=== PATIENT | male | born 1945 | race Caucasian/White ===

== ENCOUNTER → 2016-05-16 | Outpatient (CLI) | payer OTHER ==
[~2016-05-16] VITALS: Ht 177.8 cm; Wt 128.5 kg
[~2016-05-16] MED LIST: AMLO-114 PO; ASPCH81 PO; AXD/150 PO; ERGO1TAB12 PO; EZET10TA44 PO; FURO-85 PO; INSDGI SC; INSUINJ14 SC; METO1TAB69 PO; MULT-839 PO; NTRGSL/4 UT
[2016-05-16 14:57] VITALS: BP 135/78; PULSE 76; Ht 177.8 cm; Wt 128.5 kg
== END | disposition home or self-care (01) ==
LOC: C.NEUR 14:03
PROVIDERS: ATTEND Internal Medicine Pulmonary Disease
DX: G47.30 Sleep apnea, unspecified (principal)

== ENCOUNTER → 2016-06-20 | Outpatient (CLI) | payer OTHER ==
[2016-06-20 16:23] LABS: ESTIMATED AVERAGE GLUCOSE 197 mg/dl; HA1C FLAG Normal (Normal)
== END | disposition home or self-care (01) ==
LOC: C.LAB1850 14:36
PROVIDERS: ATTEND Nurse Practitioner Family
DX: E11.39 Type 2 diabetes mellitus with other diabetic ophthalmic complication (principal)

== ENCOUNTER → 2016-08-26 | Outpatient (CLI) | payer OTHER ==
[~2016-08-26] MED LIST changes: +METO100T44 PO; -METO1TAB69 PO
[2016-08-26 12:18] LABS: HEMATOCRIT 42.7 % (42-52); MEAN CORPUSCULAR HEMOGLOBIN 30.5 pg (25-34); MEAN CORPUSCULAR HGB CONC 34.7 g/dl (32-36); MEAN PLATELET VOLUME 10.4 fL (7.4-10.4); PLATELET COUNT 202 K/uL (130-400); RED BLOOD COUNT 4.85 M/uL (4.7-6.1); WHITE BLOOD COUNT 6.02 K/uL (4.8-10.8)
[2016-08-26 12:27] LABS: URINE APPEARANCE CLEAR (CLEAR); URINE BILIRUBIN NEG (NEG); URINE COLOR YELLOW; URINE EPITHELIAL CELL AUTO 0-5 /lpf (0-5); URINE NITRITE NEG (NEG); URINE SPECIFIC GRAVITY 1.012 (1.000-1.030); UROBILINOGEN NEG (NEG)
[2016-08-26 12:37] LABS: MANUAL MICROSCOPIC REQUIRED? NO; REVIEW REQ? NO
[2016-08-26 12:51] LABS: BLOOD UREA NITROGEN 24 mg/dl (7-18); BUN/CREATININE RATIO 13.1 (10-20); CARBON DIOXIDE 27 mmol/L (21-32); CHLORIDE 109 mmol/L (98-107); GLUCOSE 79 mg/dl (70-99); POTASSIUM 4.1 mmol/L (3.5-5.1); SODIUM 143 mmol/L (136-145)
[2016-08-26 12:52] LABS: PHOSPHORUS 2.1 mg/dl (2.5-4.9)
[2016-08-26 12:57] LABS: CALCIUM 9.7 mg/dl (8.5-10.1)
[2016-08-26 13:04] LABS: URINE PROTIEN/CREAT RATIO 0.1 (0-0.2); URINE TOTAL PROTEIN 6.5 mg/dl (0-11.9)
== END | disposition home or self-care (01) ==
LOC: C.LAB1850 11:17
PROVIDERS: ATTEND Internal Medicine Nephrology
DX: I12.9 Hypertensive chronic kidney disease with stage 1 through stage 4 chronic kidney disease, or unspecified chronic kidney disease (principal); N18.3 Chronic kidney disease, stage 3 (moderate); N25.81 Secondary hyperparathyroidism of renal origin; R60.9 Edema, unspecified; R80.9 Proteinuria, unspecified; E55.9 Vitamin D deficiency, unspecified

== ENCOUNTER → 2016-11-14 | Outpatient (CLI) | payer OTHER ==
[~2016-11-14] VITALS: Ht 177.8 cm; Wt 124.4 kg
[~2016-11-14] MED LIST changes: -METO100T44 PO; +METO1TAB69 PO
[2016-11-14 13:33] VITALS: BP 136/77; PULSE 74; Ht 177.8 cm; Wt 124.4 kg
== END | disposition home or self-care (01) ==
LOC: C.NEUR 13:15
PROVIDERS: ATTEND Physician Assistant
DX: G47.30 Sleep apnea, unspecified (principal); E66.9 Obesity, unspecified

== ENCOUNTER → 2016-12-22 | Outpatient (CLI) | payer OTHER ==
[2016-12-22 12:34] LABS: ESTIMATED AVERAGE GLUCOSE 197 mg/dl; HA1C FLAG Normal (Normal)
== END | disposition home or self-care (01) ==
LOC: C.LABBFT 11:07
PROVIDERS: ATTEND Internal Medicine
DX: E11.9 Type 2 diabetes mellitus without complications (principal)

== ENCOUNTER → 2017-02-10 | Outpatient (CLI) | payer OTHER ==
[~2017-02-10] MED LIST changes: +METO100T44 PO; -METO1TAB69 PO
--- NOTE | 2017-02-10 11:37 | DIAGNOSTIC IMAGING REPORT ---
CHEST 2 VIEWS ROUTINE CLINICAL HISTORY: R06.02 Shortness of breath on [id number] dyspnea COMPARISON STUDY: 12/12/2012 FINDINGS: Mild cardiomegaly. Prior median sternotomy. Diaphragms smooth. Lungs are clear. IMPRESSION: Mild cardiomegaly. Median sternotomy. No acute process. The above report was generated using voice recognition software. It may contain grammatical, syntax or spelling errors. Electronically signed by: Jb Otto M.D. 02/10/2017 11:35 AM Dictated Date/Time: 02/10/2017 11:34 AM
== END | disposition home or self-care (01) ==
LOC: C.RAD1850 11:17
PROVIDERS: ATTEND Internal Medicine
DX: R06.02 Shortness of breath (principal)

== ENCOUNTER → 2017-03-08 | Outpatient (CLI) | payer OTHER ==
[2017-03-08 12:02] LABS: HEMATOCRIT 43.3 % (42-52); MEAN CELL VOLUME 89.3 fL (80-100); MEAN CORPUSCULAR HEMOGLOBIN 30.1 pg (25-34); MEAN CORPUSCULAR HGB CONC 33.7 g/dl (32-36); MEAN PLATELET VOLUME 11.1 fL (7.4-10.4); PLATELET COUNT 181 K/uL (130-400); RED BLOOD COUNT 4.85 M/uL (4.7-6.1); WHITE BLOOD COUNT 5.43 K/uL (4.8-10.8)
[2017-03-08 12:08] LABS: URINE APPEARANCE CLEAR (CLEAR); URINE BILIRUBIN NEG (NEG); URINE COLOR YELLOW; URINE EPITHELIAL CELL AUTO 0-5 /lpf (0-5); URINE NITRITE NEG (NEG); URINE SPECIFIC GRAVITY 1.015 (1.000-1.030); UROBILINOGEN NEG (NEG)
[2017-03-08 12:10] LABS: MANUAL MICROSCOPIC REQUIRED? NO; REVIEW REQ? NO
[2017-03-08 12:27] LABS: ALT/SGPT 30 U/L (12-78); AST/SGOT 14 U/L (15-37); BLOOD UREA NITROGEN 20 mg/dl (7-18); BUN/CREATININE RATIO 11.5 (10-20); CALCIUM 8.9 mg/dl (8.5-10.1); CARBON DIOXIDE 27 mmol/L (21-32); CHLORIDE 106 mmol/L (98-107); CREATININE 1.74 mg/dl (0.60-1.40); GLUCOSE 222 mg/dl (70-99); POTASSIUM 4.1 mmol/L (3.5-5.1); SODIUM 137 mmol/L (136-145)
[2017-03-08 12:28] LABS: URINE PROTIEN/CREAT RATIO 0.2 (0-0.2); URINE TOTAL PROTEIN 16.8 mg/dl (0-11.9)
[2017-03-08 12:30] LABS: CHOLESTEROL 91 mg/dl (0-200); CHOLESTEROL/HDL RATIO 2.8; HDL CHOLESTEROL 33 mg/dl; LDL CHOLESTEROL CALCULATED 30 mg/dl; PHOSPHORUS 2.1 mg/dl (2.5-4.9); TRIGLYCERIDES 138 mg/dl (0-150); VERY LOW DENSITY LIPOPROT CALC 28 mg/dl
== END | disposition home or self-care (01) ==
LOC: C.LABPBG 08:56
PROVIDERS: ATTEND Internal Medicine Nephrology
DX: I12.9 Hypertensive chronic kidney disease with stage 1 through stage 4 chronic kidney disease, or unspecified chronic kidney disease (principal); N18.3 Chronic kidney disease, stage 3 (moderate); N25.81 Secondary hyperparathyroidism of renal origin; R60.9 Edema, unspecified; R80.9 Proteinuria, unspecified; E55.9 Vitamin D deficiency, unspecified; I25.10 Atherosclerotic heart disease of native coronary artery without angina pectoris

== ENCOUNTER → 2017-05-17 | Outpatient (CLI) | payer OTHER ==
[2017-05-17 12:39] LABS: HEMOGLOBIN A1C 8.5 % (4.5-5.6)
== END | disposition home or self-care (01) ==
LOC: C.LABBFT 10:45
PROVIDERS: ATTEND Nurse Practitioner Family
DX: E11.29 Type 2 diabetes mellitus with other diabetic kidney complication (principal); E11.65 Type 2 diabetes mellitus with hyperglycemia

== ENCOUNTER → 2017-05-18 | Outpatient (CLI) | payer OTHER ==
[~2017-05-18] VITALS: Ht 175.3 cm; Wt 129.0 kg
[2017-05-18 13:14] VITALS: BP 135/75; PULSE 88; Ht 175.3 cm; Wt 129.0 kg
== END | disposition home or self-care (01) ==
LOC: C.NEUR 12:44
PROVIDERS: ATTEND Physician Assistant
DX: G47.30 Sleep apnea, unspecified (principal); Z88.8 Allergy status to other drugs, medicaments and biological substances

== ENCOUNTER 2019-09-26 08:44 | Observation (INO) ==
--- NOTE | 2019-09-05 08:33 | PAT Medication Instructions ---
Medication Instructions Date of Service September 05, 2019 Home Medications Medication Instructions Recorded bumetanide 1 mg tablet 1 mg PO BID #180 tab 11/02/18 ezetimibe 10 mg-simvastatin 80 mg 1 tab PO HS #90 tab 11/02/18 tablet lisinopril 20 mg tablet 30 mg PO QAM #135 tab 11/02/18 metoprolol succinate 100 mg 100 mg PO BID #180 tab 11/02/18 tablet,extended release 24 hr insulin glargine 100 unit/mL (3 40 unit SUBCUT HS 90 Days #36 ml 05/09/19 mL) subcutaneous pen pen needle, diabetic 32 gauge x #400 ea 05/09/19" peg 3350-electrolytes 236 240 ml PO .COMPLEX #4000 ml 05/13/19 gram-22.74 gram-6.74 gram-5.86 gram solution insulin aspart U-100 100 unit/mL See Rx Instructions SQ DAILY 90 08/06/19 (3 mL) subcutaneous pen Days #45 ml ergocalciferol (vitamin D2) 1,250 50,000 unit PO MONTHLY #3 cap 09/04/19 mcg (50,000 unit) capsule aspirin [Aspirin Low Dose] 81 mg PO QAM nitroglycerin 1 dose SUBLINGUAL UD PRN meclizine 25 mg tablet 25 mg PO Q6H PRN sildenafil 20 mg tablet 20 mg PO DAILY PRN vitamin A-vitamin C-vit E-min 1 tab PO QAM bumetanide 1 mg tablet 1 mg PO BID ezetimibe 10 mg-simvastatin 80 mg tablet 1 tab PO HS lisinopril 20 mg tablet 30 mg PO QAM metoprolol succinate 100 mg tablet,extended release 24 hr 100 mg PO BID insulin glargine 100 unit/mL (3 mL) subcutaneous pen 40 unit SUBCUT HS insulin aspart U-100 100 unit/mL (3 mL) subcutaneous pen See Rx Instructions SQ DAILY calcium carbonate [Tums] 200 mg PO BID PRN ergocalciferol (vitamin D2) 1,250 mcg (50,000 unit) capsule 50,000 unit PO MONTHLY ASK your surgeon for instructions nitroglycerin 1 dose SUBLINGUAL UD PRN (if needed) STOP taking 2 weeks before surgery (or as soon as possible if surgery is within 2 weeks) vitamin A-vitamin C-vit E-min 1 tab PO QAM DO NOT take the morning of surgery sildenafil 20 mg tablet 20 mg PO DAILY PRN bumetanide 1 mg tablet 1 mg PO BID lisinopril 20 mg tablet 30 mg PO QAM insulin aspart U-100 100 unit/mL (3 mL) subcutaneous pen See Rx Instructions SQ DAILY calcium carbonate [Tums] 200 mg PO BID PRN ergocalciferol (vitamin D2) 1,250 mcg (50,000 unit) capsule 50,000 unit PO MONTHLY Take morning of surgery With a small sip of water, OTHERWISE NOTHING TO EAT OR DRINK AFTER MIDNIGHT: aspirin [Aspirin Low Dose] 81 mg PO QAM meclizine 25 mg tablet 25 mg PO Q6H PRN (if needed) metoprolol succinate 100 mg tablet,extended release 24 hr 100 mg PO BID Take evening before surgery meclizine 25 mg tablet 25 mg PO Q6H PRN (if needed) sildenafil 20 mg tablet 20 mg PO DAILY PRN (if needed) bumetanide 1 mg tablet 1 mg PO BID lisinopril 20 mg tablet 30 mg PO QAM insulin aspart U-100 100 unit/mL (3 mL) subcutaneous pen See Rx Instructions SQ DAILY calcium carbonate [Tums] 200 mg PO BID PRN (if needed) insulin glargine 100 unit/mL (3 mL) subcutaneous pen 40 unit SUBCUT HS Other Notes If you have any questions please call us at [phone] or [phone] or [phone] or [phone]
--- NOTE | 2019-09-05 12:23 | Anesthesiology Consultation ---
Date of Service September 05, 2019 Assessment & Plan (1) Encounter for pre-operative examination: - Patient has cardiology office visit 09/12/19. Awaiting office visit note ([facility] cardiology). Per PAT assessment on 09/04: Travel screen- Lives in [facility]. Only travel to [facility]. Wears mask in public. No known COVID-19 positive contacts. No history of COVID-19 testing. No current COVID-19 related symptoms. - Check BSG AM DOS Chart Review Chart Review: Patient seen in Pre Admission Testing Teaching & Discussion Pre-Anesthesia Teaching/Discussion Notes: Instructed NPO after midnight before surgery,except medications with 15 cc of water. Medication instructions provided according to the [facility] guidelines. History Surgery Operation Date: 09/26/19 11:10 Proposed Procedures p Right Total Knee Replacement - Forest Bales MD Correct surgery side is LEFT side, corrected OR booking sheet received Height/Weight Height: 5 ft 10 in Weight: 124.738 kg Allergies Allergy/AdvReac Type Severity Reaction Status Date / Time atorvastatin Allergy Intermediate severe Verified 09/05/19 10:27 muscle aches Medications Home Medications Medication Instructions Recorded Confirmed Last Taken aspirin [Aspirin Low Dose] 81 mg PO QAM 04/26/18 09/05/19 05/09/18 nitroglycerin 1 dose SUBLINGUAL UD PRN 04/26/18 09/05/19 Unknown meclizine 25 mg tablet 25 mg PO Q6H PRN #30 tab 10/31/18 09/05/19 Unknown vitamin A-vitamin C-vit E-min 1 tab PO QAM 10/31/18 09/05/19 Unknown bumetanide 1 mg tablet 1 mg PO BID #180 tab 11/02/18 09/05/19 Unknown ezetimibe 10 mg-simvastatin 80 mg 1 tab PO HS #90 tab 11/02/18 09/05/19 Unknown tablet lisinopril 20 mg tablet 30 mg PO QAM #135 tab 11/02/18 09/05/19 Unknown metoprolol succinate 100 mg 100 mg PO BID #180 tab 11/02/18 09/05/19 Unknown tablet,extended release 24 hr insulin glargine 100 unit/mL (3 40 unit SUBCUT HS 90 Days #36 ml 05/09/19 09/05/19 Unknown mL) subcutaneous pen pen needle, diabetic 32 gauge x #400 ea 05/09/19 09/05/19 Unknown 532" peg 3350-electrolytes 236 240 ml PO .COMPLEX #4000 ml 05/13/19 09/05/19 Unknown gram-22.74 gram-6.74 gram-5.86 gram solution insulin aspart U-100 100 unit/mL See Rx Instructions SQ DAILY 90 08/06/19 09/05/19 Unknown (3 mL) subcutaneous pen Days #45 ml calcium carbonate [Tums] 200 mg PO BID PRN 09/04/19 09/05/19 Unknown ergocalciferol (vitamin D2) 1,250 50,000 unit PO MONTHLY #3 cap 09/04/19 09/05/19 Unknown mcg (50,000 unit) capsule sildenafil 20 mg PO DAILY PRN 09/05/19 09/05/19 Unknown Past Medical History Medical History (Updated 09/05/19 @ 19:37 by Anahi Alfaro) CAD (coronary artery disease) CABG x2 (2004) Chronic kidney disease, stage III (moderate) baseline creatinine 1.6-1.7 per chart review Diabetes mellitus, type 2 IDDM GERD (gastroesophageal reflux disease) Hyperlipidemia Hypertension Hypertension Meniere's disease Secondary hyperparathyroidism Sensorineural hearing loss (SNHL) of left ear with restricted hearing of right ear Sleep apnea CPAP Urinary tract infection Exercise / Class Metabolic Activity III < 4 Walking/Shop/Light housework Past Family History Family History Mother Family history of diabetes mellitus Myocardial infarction Diabetes Cardiac disorder Hypertension Heart disease Father Myocardial infarction Cardiac disorder Alcohol abuse Brother Myocardial infarction Leukemia Alcohol abuse Other No family history of adverse response to anesthesia Pure hypercholesterolemia Past Surgical History Surgical History (Updated 09/05/19 @ 19:37 by Anahi Alfaro) History of arthroscopy LEFT KNEE History of cardiac cath 2005 @ [facility], no stents History of cataract surgery BILATERAL History of colonoscopy with polypectomy History of coronary artery bypass graft X2 (2004) History of endoscopic sinus surgery History of esophagogastroduodenoscopy (EGD) History of tonsillectomy Past Anesthesia History No Hx of Anesthesia Complications and No Family Hx of Anesthesia Complications History of PONV No Hx of PONV and Hx of Motion Sickness (remote hx) Social History Smoking Status: Former smoker tobacco type: pipe and cigars Do You Dip or Chew Tobacco: No Smoking End Date: Quit Hx Alcohol Use: Yes Alcohol type: hard liquor alcohol intake frequency: holidays/special occasions only Hx Substance Use: No substance use type: does not use Review of Systems Patient denies chest pain, shortness of breath, fever, chills, cough, wheezing, palpitations. Physical Exam Vital Signs VITALS BP 137/77 P 64 TEMP 98.2 SP02 97%RA RESP 18 PHYSICAL Full neck and c-spine range of motion. Full TMJ range of motion. TMD 3 finger breaths Mallampati Score 3 Dentition: partial on lower Lungs: clear throughout to auscultation Cardiac: regular rate and rhythm, no murmurs noted Spine: normal Carotid arteries: negative bruit Extremities: no edema Testing Laboratory Results PT 11.0 Seconds (9.0-12.0) 09/05/19 13:04 INR 1.0 (0.9-1.1) 09/05/19 13:04 APTT 26.4 Seconds (21.0-31.0) 09/05/19 13:04 Hemoglobin A1c 7.8 % (4.5-5.6) H 09/05/19 13:04 Blood Type A Negative 09/05/19 13:04 Antibody Screen NEGATIVE 09/05/19 13:04 09/03/19 WBC 6.38 H/H 14.4/42.4 PLATELETS 192 SODIUM 143 POTASSIUM 4.2 CHLORIDE 112 CO2 26 BUN 21 CREATININE 1.62 GLUCOSE 80 Electrocardiogram Date: 09/05/19 NSR at 66bpm. NS TWA. Chest X-Ray Date: 09/05/19 The patient is status post midline sternotomy. The heart is enlarged noting atherosclerotic calcification of the thoracic aorta. The pulmonary vasculature is noncongested. Mild scarring/atelectasis is noted at the lung bases. The lungs and pleural spaces are otherwise clear. There is no pneumothorax. The skeletal structures are osteopenic. The bony thorax appears intact. IMPRESSION: Cardiomegaly with no active disease in the chest.
--- NOTE | 2019-09-05 13:28 | XRay Report ---
TWO VIEW CHEST CLINICAL HISTORY: Preoperative examination. FINDINGS: PA and lateral chest radiographs are compared to study dated 02/10/2017. The patient is sta tus post midline sternotomy. The heart is enlarged noting atherosclerotic calcification of the thorac ic aorta. The pulmonary vasculature is noncongested. Mild scarring/atelectasis is noted at the lung b ases. The lungs and pleural spaces are otherwise clear. There is no pneumothorax. The skeletal struc tures are osteopenic. The bony thorax appears intact. IMPRESSION: Cardiomegaly with no active disease in the chest. ACT 112: Negative or not required by law. Electronically signed by: Cy Gamino M.D. 09/05/2019 1:27 PM
[2019-09-05 15:09] LABS: Partial Thromboplastin Ratio 0.9; Partial Thromboplastin Time 26.4 Seconds (21.0-31.0)
[2019-09-05 15:13] LABS: Estimated Average Glucose 177 mg/dl; Hemoglobin A1C 7.8 % (4.5-5.6)
--- NOTE | 2019-09-05 16:57 | Electrocardiogram Report ---
Test Reason : Blood Pressure : / mmHG Vent. Rate : 066 BPM Atrial Rate : 066 BPM P-R Int : 204 ms QRS Dur : 088 ms QT Int : 410 ms P-R-T Axes : 071 005 103 degrees QTc Int : 429 ms Normal sinus rhythm Nonspecific T wave abnormality Abnormal ECG When compared with ECG of 07-MAY-2015 11:19, No significant change was found Confirmed by Surjit Copeland ([id number]) on 09/05/2019 4:56:42 PM Referred By: Forest Bales Confirmed By:Surjit Copeland
[~2019-09-26 08:44] MED LIST changes: +ACETAMINOPHEN 500 MG TAB PO SCH; -AMLO-114 PO; -ASPCH81 PO; -AXD/150 PO; +BUPIVACAINE 0.5 % 5 MG/1 ML PF 10ML VIAL ONE; +BUPIVACAINE LIPOSOME/PF 266 MG, BUPIVACAINE/EPINEPHRINE 50 ML, SODIUM CHLORIDE 0.9% 30 ... INFIL SCH; +CEFAZOLIN 3000MG 72.5 ML IV SCH; -ERGO1TAB12 PO; -EZET10TA44 PO; +FAMOTIDINE 20 MG TAB PO SCH; -FURO-85 PO; +GABAPENTIN 300 MG CAP PO SCH; -INSDGI SC; -INSUINJ14 SC; +LR 500ML BOLUS, THEN 15ML/HR IV SCH; +LR 60ML/HR IV SCH; -METO100T44 PO; +METOCLOPRAMIDE HCL 10 MG TABLET PO SCH; -MULT-839 PO; -NTRGSL/4 UT; +ROPIVACAINE 0.5% 5 MG/ML 30 ML VIAL ONE; +TRANEXAMIC ACID 1,000 MG **IV Intra-op IV SCH
--- NOTE | 2019-09-26 08:55 | History & Physical Bridge Note ---
Date of Service September 26, 2019 History & Physical Bridge Note I have examined the patient, reviewed the History & Physical and in the interval since the performance of the History & Physical I have noted the following changes of clinical significance: no changes noted
[2019-09-26] MEDS ORDERED: MIDAZOLAM HCL 1 MG/ML 2ML VIAL ONE ×2 (09:16→11:18)
[2019-09-26] MEDS ORDERED: PROPOFOL IV EMULSION 10 MG/ML 20 ML VIAL IV ONE ×4 (09:20→11:36)
[2019-09-26] MEDS ORDERED: ONDANSETRON INJ 2 MG/ML 2 ML VIAL IV PRN ×2 (10:19→14:12)
[2019-09-26] MEDS ORDERED: KETOROLAC 30 MG/ML VIAL IV PRN (10:19)
[2019-09-26] MEDS ORDERED: ATROPINE SULFATE 0.1 MG/ML 10ML SYR IV PRN (10:19)
[2019-09-26] MEDS ORDERED: HYDROmorphone INJ 1 MG/ML SYRINGE IV PRN (10:19)
[2019-09-26] MEDS ORDERED: ePHEDrine sulfate 50 MG/ML AMP IV PRN (10:19)
[2019-09-26] MEDS ORDERED: BACITRACIN INJ 50,000 UNIT VIAL ONE (10:40)
[2019-09-26] MEDS ORDERED: BUPIVACAINE 0.25% 30 ML VIAL ONE (10:40)
[2019-09-26] MEDS ORDERED: BUPIVACAINE LIPOSOME 1.3% 266 MG/20 ML VIAL ONE (10:40)
[2019-09-26] MEDS ORDERED: SODIUM CHLORIDE 0.9% PF 50 ML VIAL ONE (10:40)
[2019-09-26] MEDS ORDERED: EPINEPHrine INJ 1 MG/ML AMP ONE (10:41)
--- NOTE | 2019-09-26 12:40 | Post Operative Brief Note ---
PG Immediate Post Op with CF Date of Surgery September 26, 2019 Pre & Post Diagnosis Operation Date: 09/26/19 10:55 Pre-Op Diagnosis: Left Knee Advanced Degenerative Joint Disease Post-Op Diagnosis: Left Knee Advanced Degenerative Joint Disease I identified the patient and participated in the time-out.: Yes Procedure Operation Date: 09/26/19 10:55 Actual Procedures p Left Total Knee Arthroplasty(Left) - Forest Bales MD Surgeon Foerst Bales MD Bilingual Sales Assistant Wai, PAC Estimated Blood Loss 50 Findings Consistent with Post-Op Diagnosis Fluids 500 cc Specimens Specimen Description: A. Left Knee Bone and Tissue Drains Healy Catheter Disposition Disposition: Recovery Room
--- NOTE | 2019-09-26 12:57 | XRay Report ---
LEFT KNEE 2 VIEWS History: Left total knee arthroplasty. Degenerative arthritis. Postop. FINDINGS: The patient is status post a left total knee arthroplasty. The hardware is intact. No fract ure or dislocation. Skin shivani are in place. IMPRESSION: Left total knee arthroplasty. No evidence for hardware complication. ACT 112: Negative or not required by law. Electronically signed by: Erik Rees M.D. 09/26/2019 12:56 PM
--- NOTE | 2019-09-26 13:02 | Operative Report ---
Post Operative Report Pre & Post Diagnosis Operation Date: 09/26/19 10:55 Pre-Op Diagnosis: Left Knee Advanced Degenerative Joint Disease Post-Op Diagnosis: Left Knee Advanced Degenerative Joint Disease I identified the patient and participated in the time-out.: Yes Procedure Operation Date: 09/26/19 10:55 Actual Procedures p Left Total Knee Arthroplasty(Left) - Forest Bales MD Surgeon Forest Bales MD Building Components Designer Wai, PAC Estimated Blood Loss 50 Findings Consistent with Post-Op Diagnosis Operative findings revealed advanced left knee DJD with extensive grade 4 [id number] disease of the medial femoral condyle medial tibial plateau. He had large osteophytes posteriorly on both the medial and lateral sides with the posterior calcifications. Large knee joint effusion. He had fixed varus deformity to his knee. Fluids 500 cc. Specimens Left knee sent for pathology. Drains None. Anesthesia Type Spinal MAC Complications none Disposition Accompanied Patient To Recovery: No Disposition: Recovery Room Indications Patient is a 74-year-old gentleman is had a long history of bilateral knee pain discomfort left side greater than right. Is been through extensive conservative treatments became less successful with time. X-ray showed advanced left knee medial compartment DJD. Significant flexion contracture as well as fixed varus deformity to his knee. He elected proceed with total knee arthroplasty. Description of Procedure Operative implants consist of: 1. Biomet Vanguard size 70 left posterior by femoral component. 2. Biomet size 79 tibial tray. 3. 10 mm posterior bite polyethylene insert. 4. 31 x 8 all poly-patella. Patient was taken to the operating room identified and placed on the operating table supine position protectors were properly padded. IV antibiotics arrived by anesthesia team. A spinal anesthetic and abductor canal block had provided in the holding area. Healy catheter was placed in sterile fashion. Left factor was then placed in the left lower extremities and prepped draped in usual sterile fashion. The left leg was elevated exsanguinated with use of an Esmarch and turns placed at 300 mmHg. An anterior approach to the left knee was then performed the longitudinal incision centered over the patella. Sharp dissection got through subcutaneous this down to the extensor mechanism. A medial parapatellar arthrotomy incision was made. Some subperiosteal dissection was carried out medially. The fat pad was dissected from any patella tendon. Lateral patellofemoral ligament was released. Patella was subluxated laterally and the knee was flexed. The osteophytes were taken off distal femur. The ACL and PCL were then released from distal femur the tibia subluxated anteriorly. The external tibial alignment jig was then placed in the interface the tibia and ad justed 14 mm medially. Proximal tibial cut was made essentially flush with the most efficient aspect of the posterior medial tibial plateau. Some osteophytes were taken off medial and posterior medially. Tibia sized to a size 79. Attention drawn the femur. The distal femur 7 the sharp drill bit intramedullary canal was suctioned. A left 6 degree valgus cutting guide was placed. Distal femoral cutting block was pinned in place. Distal femoral cut was made to take an additional 3 mm of bone off distal femur. The femur was then sized to a size 70. We did downsize a slightly. The AP cutting block was pinned parallel to the epicondylar axis which was 4 degrees of external rotation. The anterior cut, anterior chamfer, posterior cut, posterior chamfer cuts were made. Box cutting guide was placed in just slight lateral box cut was made. The knee was flexed. The remnants of the medial and lateral menisci were excised. The osteophytes and calcification were excised from the posterior aspect of the femur. Trial femoral component was then placed. The tibial tray was pinned in maximum external rotation the drill and stem punch were used to create defect in proximal tip for the tibial tray. Knee was then trialed and the 10 mm insert fit most appropriately. Attention drawn the patella. The patella was cleaned of all soft tissues. Patella thickness measured 22 mm in thickness was cut down to 13. Size a size 31 patella. Locals were drilled for 31 patella. Lateral osteophyte is moved. Patella button was placed. Knee was taken through range of motion patella tracked nicely with no thumbs test. Attention drawn to place the permanent components. All trial components were removed. A bone plug was placed in the disc femur limit blood loss. A double batch Palacos G cement was mixed. Biomet Vanguard size 70 left posterior by femoral component, size 79 tibial tray, 10 mm posterior box polyethylene insert, and a 31 x 8 all poly-patella were then cemented in place. Knee was brought under full extension total cement hardened. Final cement check was then performed. Pericapsular tissues were injected with total 100 cc of combination of 20 cc of Exparel, 30 cc of normal saline, 50 cc of quarter percent Marcaine with epinephrine. Patient did receive 1 g tranexamic acid. The tourniquet was then let down for final tourniquet time 56 minutes. Hemostasis assured use electrocautery. The wounds once again irrigated. The extensor mechanism then closed with combination 1 PDS suture #1 Vicryl suture in a [id number] fashion. Extensor mechanism checked found to be intact the subcutaneous tissue was then closed with 2 Dexon suture in a buried interrupted fashion. Skin was closed skin shivani. Leg was then cleaned dried a sterile dressing composed Xeroform, 4 x 4's, sterile cast padding, Phill bandage were applied. Patient then transferred to the recovery room in stable condition. Patient tolerated procedure well and there were no complications. I attest to the content of the Intraoperative Record and any orders documented therein. Any exceptions are noted below.
[2019-09-26] MEDS ORDERED: GLUCOSE 10 TABS/TUBE PO PRN (14:12)
[2019-09-26] MEDS ORDERED: GLUCOSE 40% GEL 15 GM TUBE PO PRN (14:12)
[2019-09-26] MEDS ORDERED: NALOXONE HCL 0.4 MG/1 ML VIAL/CARP IV PRN (14:12)
[2019-09-26] MEDS ORDERED: CALCIUM CARBONATE 500 MG CHEWABLE TAB PO PRN (14:12)
[2019-09-26] MEDS ORDERED: DEXTROSE 50% 50 ML SYRINGE IV PRN (14:12)
[2019-09-26] MEDS ORDERED: NO NSAIDS SCH (14:12)
[2019-09-26] MEDS ORDERED: CARBOHYDRATES FOR HYPOGLYCEMIA PO PRN (14:12)
[2019-09-26] MEDS ORDERED: ALUMINUM/MAGNESIUM SUSP 30 ML UDC PO PRN (14:12)
[2019-09-26] MEDS ORDERED: bisacodyL 10 MG SUPP PR PRN (14:12)
[2019-09-26] MEDS ORDERED: MAGNESIUM HYDROXIDE SUSP 30 ML UDC PO PRN (14:12)
[2019-09-26] MEDS ORDERED: HYDROmorphone INJ 0.5 MG/0.5 ML SYR IV PRN (14:12)
[2019-09-26] MEDS ORDERED: GLUCAGON FOR INJ 1 MG VIAL SQ PRN (14:12)
[2019-09-26] MEDS ORDERED: NON-FORMULARY MEDICATION (Sildenafil 20 MG) PO PRN (14:12)
[2019-09-26] MEDS ORDERED: NITROGLYCERIN SL 0.4 MG/TAB TAB SL PRN (14:12)
[2019-09-26] MEDS ORDERED: TAMSULOSIN HCL 0.4 MG CAP PO PRN (14:12)
[2019-09-26] MEDS ORDERED: METOCLOPRAMIDE HCL INJ 5 MG/ML 2 ML VIAL IV PRN (14:12)
[2019-09-26] MEDS ORDERED: PHARMACY GLYCEMIC MGMT CONSULT PRN (14:30)
--- NOTE | 2019-09-26 14:58 | Pharmacy Report ---
Glycemic Control Consultation - Date of Service September 26, 2019 - Scope Scope: Glycemic Pharmacist consulted for glycemic control and to write orders per [facility] inpatient glycemic control protocol. - Objective Weight: 121 kg Accuchecks BSG (last 24hrs): 09/26/19 09/26/19 09:15 12:50 POC Glucose 170 H 144 H HbA1c: Hemoglobin A1c 7.8 % (4.5-5.6) H 09/05/19 13:04 - Recent Pertinent Medications Outpatient Anti-diabetic Regimen: * Lantus 40 units SQ HS * Novolog 14 units SQ breakfast, 16 units SQ Lunch, 14 units SQ dinner * A1c = 7.8% from 09/05/19 * Down from 8.7% on 04/15/19 Risk Factors for Insulin Resistance: * Recent Surgery: POD #0 s/p L TKA * Diet: T2DM - Assessment & Plan Assessment & Plan: ASSESSMENT: * 74 yo M who is POD #0 s/p L TKA. PHMx is significant for CAD, CKD-III, HLD, HTN. Pharmacy is consulted for glycemic management. * A1c has come down nicely over the past few months (8.7% --> 7.8%). Patient did take his evening dose of Lantus 40 units last evening. Fasting this AM (pre- op) was 170 mg/dL. Could not see where patient received any steroids perioperatively. He is ordered a T2DM diet. * Post-op BSG was 144 mg/dL. Will give Lantus at a 25% reduction from home dose this evening to account for poor PO intake compared to home. Will start with Novolog parameters based on weight and stress of 2 to try to mimic home dosing. PLAN FOR INPATIENT GLYCEMIC CONTROL: * Basal insulin * Lantus 30 units SQ HS * Bolus insulin * NovoLog per scale ACHS or Q6hrs while NPO * Goal Range: Low 110 mg/dL - High 140 mg/dL * Correction Factor: 20 mg/dL/unit * Nutritional / Prandial insulin per carb ratio of 1 unit per 6 grams CHO consumed * Please note that the plan above was derived based on current level of insulin resistance and hospital stress. These recommendations are appropriate for inpatient admission only. Plan of care upon discharge will need to be reassessed to avoid potential outpatient hypo/hyperglycemia. Thank you.
[2019-09-26] MEDS ORDERED: MECLIZINE HCL 25 MG TAB PO PRN (15:00)
[2019-09-26] MEDS: SODIUM CHLORIDE 0.9% 1000ML 1,000 ML IV SCH ×2 (16:00→22:05)
[2019-09-26] MEDS: METOPROLOL SUCC 50MG EXT REL TAB PO SCH ×2 (16:02→21:04)
[2019-09-26] MEDS: ACETAMINOPHEN 500 MG TAB PO SCH ×2 (16:03→21:03)
[2019-09-26] MEDS: FERROUS GLUCONATE 324 MG TAB PO SCH (16:03)
[2019-09-26] MEDS: ASCORBIC ACID 500 MG TAB PO SCH (16:04)
--- NOTE | 2019-09-26 16:34 | Hospitalist Consultation ---
Date of Consultation September 26, 2019 Assessment & Plan (1) Left knee DJD: s/p L TKA with Dr. Bales on 09/25 Pre-op Hb 14.4 Diet and DVT proph as per ortho (2) CAD (coronary artery disease): aspirin 81mg (3) S/P CABG (coronary artery bypass graft): 2004 (4) Type 2 diabetes mellitus: SSI PRN glargine 40 units HS Ortho c/s for pharm DM management A1c 7.8 (5) Hyperlipidemia: continue home meds (6) GERD (gastroesophageal reflux disease): continue home meds (7) Hypertension: continue home meds (8) Secondary hyperparathyroidism: noted (9) Chronic kidney disease, stage III (moderate): Baseline cr 1.6-1.7 (10) DVT prophylaxis: As per ortho History of Present Illness Attending Physician: Forest Bales MD History of Present Illness 74 y/o M who was admitted on 09/25 s/p L TKA with Dr. Bales. Pt is doing well post-op. Tolerating water without issue, but has not eaten yet. Pt denies fever, SOB, chest pain, abd pain, n/v/c/d, LE swelling or pain. Allergies Allergy/AdvReac Type Severity Reaction Status Date / Time atorvastatin Allergy Intermediate severe Verified 09/26/19 09:50 muscle aches Home Medications Home Medications Medication Instructions Recorded Confirmed Type aspirin [Aspirin Low Dose] 81 mg PO QAM 04/26/18 09/26/19 History nitroglycerin 1 dose SUBLINGUAL UD PRN 04/26/18 09/17/19 History meclizine 25 mg tablet 25 mg PO Q6H PRN #30 tab 10/31/18 09/17/19 History vitamin A-vitamin C-vit E-min 1 tab PO QAM 10/31/18 09/26/19 History bumetanide 1 mg tablet 1 mg PO BID #180 tab 11/02/18 09/26/19 Rx ezetimibe 10 mg-simvastatin 80 mg 1 tab PO HS #90 tab 11/02/18 09/26/19 Rx tablet lisinopril 20 mg tablet 30 mg PO QAM #135 tab 11/02/18 09/26/19 Rx metoprolol succinate 100 mg 100 mg PO BID #180 tab 11/02/18 09/26/19 Rx tablet,extended release 24 hr insulin glargine 100 unit/mL (3 40 unit SUBCUT HS 90 Days #36 ml 05/09/19 09/26/19 Rx mL) subcutaneous pen pen needle, diabetic 32 gauge x #400 ea 05/09/19 09/17/19 Rx 32" peg 3350-electrolytes 236 240 ml PO .COMPLEX #4000 ml 05/13/19 09/17/19 Rx gram-22.74 gram-6.74 gram-5.86 gram solution insulin aspart U-100 100 unit/mL See Rx Instructions SQ DAILY 90 08/06/19 09/26/19 Rx (3 mL) subcutaneous pen Days #45 ml calcium carbonate [Tums] 200 mg PO BID PRN 09/04/19 09/26/19 History ergocalciferol (vitamin D2) 1,250 50,000 unit PO MONTHLY #3 cap 09/04/19 09/17/19 Rx mcg (50,000 unit) capsule sildenafil 20 mg PO DAILY PRN 09/05/19 09/17/19 History famotidine 20 mg tablet 20 mg PO DAILY #90 tab 09/17/19 09/17/19 Rx Patient History Medical History CAD (coronary artery disease) CABG x2 (2004) Chronic kidney disease, stage III (moderate) baseline creatinine 1.6-1.7 per chart review Diabetes mellitus, type 2 IDDM GERD (gastroesophageal reflux disease) Hyperlipidemia Hypertension Hypertension Meniere's disease Secondary hyperparathyroidism Sensorineural hearing loss (SNHL) of left ear with restricted hearing of right ear Sleep apnea CPAP Urinary tract infection Surgical History History of arthroscopy LEFT KNEE History of cardiac cath 2005 @ [facility] – [place], no stents History of cataract surgery BILATERAL History of colonoscopy with polypectomy History of coronary artery bypass graft X2 (2004) History of endoscopic sinus surgery History of esophagogastroduodenoscopy (EGD) History of tonsillectomy Family History Mother Family history of diabetes mellitus Myocardial infarction Diabetes Cardiac disorder Hypertension Heart disease Father Myocardial infarction Cardiac disorder Alcohol abuse Brother Myocardial infarction Leukemia Alcohol abuse Other No family history of adverse response to anesthesia Pure hypercholesterolemia Social History Preferred Language: Danish Communication Ability: Effective 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 Beliefs That Will Affect Care: None marital status: Current Living Situation: Spouse current occupational status: retired Feels Safe at Home: Yes Safety Concerns: Feels Safe At This Time Smoking Status: Former smoker Tobacco Type: pipe and cigars ; Do You Dip or Chew Tobacco: No ; Smoking End Date: Quit ; Second Hand Exposure: Yes (father smoked) ; Tobacco Cessation Education Requested by Patient: No Hx Alcohol Use: Yes Alcohol type: hard liquor Alcohol Intake Frequency: Rarely Hx Substance Use: No Dental Care, Regularly: Yes Physical Activity Frequency: Does not Exercise Seatbelt Use: always Sunscreen Use: No Review of Systems Review of Systems: Pertinent positives and negatives reviewed in HPI--all others negative Physical Exam Constitutional: WD/WN, vitals as above Eyes: normal visual [place] by confrontation and + anicteric sclerae Neck: normal visual inspection and trachea midline Respiratory: normal respiratory effort, lungs clear to auscultation Cardiovascular: Rate/Rhythm: regular rate and regular rhythm Gastrointestinal (Abdomen): Inspection/Auscultation: abdomen not distended Percussion/Palpation: abdomen soft; abdomen nontender Musculoskeletal: Head/Neck/Chest: normocephalic and head atraumatic negative for edema, peripheral pulses intact Skin: no rashes, warm and dry Neurologic: awake; not confused Speech / Cognition: normal speech Psychiatric: A+Ox3, euthymic affect Results & Data Results & Data ([facility]) Vital Signs (Past 12 Hours) Vital Signs Temp Pulse Pulse Resp BP Pulse Ox 09/26/19 15:55 36.2 C L 71 14 184/96 H 99 09/26/19 15:00 36.3 C L 69 15 165/76 H 98 09/26/19 14:30 36.3 C L 75 16 163/89 H 95 09/26/19 13:56 36.4 C L 69 16 142/84 H 100 09/26/19 13:35 72 16 123/78 100 09/26/19 13:25 70 16 144/81 H 100 09/26/19 13:15 36.5 C 68 18 139/75 100 09/26/19 13:05 77 18 121/71 100 09/26/19 12:55 77 18 115/64 100 09/26/19 12:46 36.0 C L 73 14 114/66 98 09/26/19 10:40 36.8 C 80 20 98 09/26/19 09:22 36.8 C 20 160/88 H 97 Diagnostic Findings CXR: neg for acute PG Care Time/CCT Total # of Minutes Spent Total Time Spent with Patient: Total time spent is greater than 50% in coordination of care (as documented) at patient's floor/unit and/or counseling patient: Coding Level of Care Code 91776 Inpt Consult Level 4 Diagnoses Left knee DJD M17.12 CAD (coronary artery disease) I25.10 S/P CABG (coronary artery bypass graft) Z95.1 Type 2 diabetes mellitus E11.9 Hyperlipidemia E78.5 GERD (gastroesophageal reflux disease) K21.9 Hypertension I10 Secondary hyperparathyroidism N25.81 Chronic kidney disease, stage III (moderate) N18.3 DVT prophylaxis Z29.9
[2019-09-26] MEDS ORDERED: lisinopriL 20 MG TAB PO STA (17:36)
[2019-09-26] MEDS: INSULIN ASPART 100 UNITS/ML 3 ML PEN SC SCH ×2 (17:54→21:11)
[2019-09-26] MEDS ORDERED: TRANEXAMIC ACID / 0.7% NACL 1,000 MG/100 ML BAG IV SCH (19:00)
[2019-09-26] MEDS: CEFAZOLIN 2000MG 2,000 MG/15 ML SYR IV SCH (20:48)
[2019-09-26] MEDS ORDERED: INSULIN GLARGINE SOLOSTAR 100 UNITS/ML 3 ML PEN SQ SCH (21:00)
[2019-09-26] MEDS: DOCUSATE SODIUM 100 MG CAP PO SCH (21:02)
[2019-09-26] MEDS: ASPIRIN 81 MG ECTAB PO SCH (21:02)
[2019-09-26] MEDS: BUMETANIDE 1 MG TAB PO SCH (21:03)
[2019-09-26] MEDS: SENNA 8.6 MG TAB PO SCH (21:03)
[2019-09-26] MEDS: TAPENTADOL HCL ER 50 MG TABCR PO SCH (21:07)
--- NOTE | 2019-09-26 21:09 | Progress Notes ---
DATE: 09/26/2019 SUBJECTIVE: A 74-year-old gentleman postop from a left knee replacement. He is doing pretty well. No significant pain yet. No chest pain or shortness of breath. Not feeling dizzy or lightheaded. OBJECTIVE: VITAL SIGNS: Temperature 36.2. Vital signs are stable. He is hypertensive with blood pressure 202/107. GENERAL: Shows a pleasant elderly male. He is sitting in bed, looks comfortable. EXTREMITIES: Examination of the left leg reveals the leg to be well aligned. Dressing is clean, dry, and intact. He can dorsiflex and plantarflex his foot appropriately. He is neurologically intact. X-RAYS: X-rays of the left knee from recovery room reviewed. It shows a left cemented posterior stabilized total knee arthroplasty. Components looked to be in good position. No signs of problems. ASSESSMENT: A 74-year-old gentleman with multiple medical comorbidities including very poorly controlled diabetes and hypertension postop from a left knee replacement, doing pretty well. His pain is controlled. He is hypertensive. PLAN: 1. DVT prophylaxis including thigh-high TEDs, SCDs, and aspirin twice a day. 2. PT/OT. Weightbear as tolerated. Left total knee protocol. 3. Pain control, doing well with current pain regimen. 4. IV antibiotics x24 hours. 5. Hypertension. We will give him his lisinopril and see if this helps. He just recently got metoprolol. Medicine service has been consulted for both diabetes and medical management and I will defer to them for hypertensive management. 6. Disposition. He is planning to be discharged hopefully to home with home health. He is going to see how he does in therapy. There is a chance he might need to go to rehab.
[2019-09-27] MEDS: CEFAZOLIN 2000MG 2,000 MG/15 ML SYR IV SCH (03:33)
[2019-09-27] MEDS: OXYCODONE HCL IR 5 MG TAB (IMMEDIATE RELEASE) PO PRN (03:33)
[2019-09-27] MEDS: ACETAMINOPHEN 500 MG TAB PO SCH ×3 (05:21→21:57)
[2019-09-27 05:51] LABS: Hematocrit (blood only) 42.5 % (42-52); Hemoglobin 13.7 g/dL (14.0-18.0); Mean Corpuscular Hemoglobin 29.1 pg (25-34); Mean Corpuscular Hgb Conc 32.2 g/dL (32-36); Mean Corpuscular Volume 90.2 fL (80-100); Mean Platelet Volume 11.1 fL (7.4-10.4); Platelet Count 188 K/uL (130-400); RDW Coefficient of Variation 12.7 % (11.5-14.5); RDW Standard Deviation 41.9 fL (36.4-46.3); Red Blood Count 4.71 M/uL (4.7-6.1); White Blood Count 11.78 K/uL (4.8-10.8)
[2019-09-27 06:22] LABS: BUN Creatinine Ratio 14.6 (10-20); Calcium 9.2 mg/dl (8.5-10.1); Creatinine Clr Calc Pharmacy 47.9 ml/min; Est GFR (African American) 44.1; Potassium 4.1 mmol/L (3.5-5.1)
[2019-09-27] MEDS: ASPIRIN 81 MG ECTAB PO SCH ×2 (08:39→22:00)
[2019-09-27] MEDS: ASCORBIC ACID 500 MG TAB PO SCH ×2 (08:39→18:18)
[2019-09-27] MEDS: BUMETANIDE 1 MG TAB PO SCH ×2 (08:39→21:59)
[2019-09-27] MEDS: CEROVITE ADV FORMULA TAB PO SCH (08:40)
[2019-09-27] MEDS: FERROUS GLUCONATE 324 MG TAB PO SCH ×2 (08:40→18:18)
[2019-09-27] MEDS: MULTIVITAMIN TAB PO SCH (08:40)
[2019-09-27] MEDS: lisinopriL 10 MG TAB PO SCH (08:40)
[2019-09-27] MEDS: DOCUSATE SODIUM 100 MG CAP PO SCH ×2 (08:41→22:00)
[2019-09-27] MEDS: INSULIN ASPART 100 UNITS/ML 3 ML PEN SC SCH ×4 (08:43→22:03)
[2019-09-27] MEDS: TAPENTADOL HCL ER 50 MG TABCR PO SCH ×2 (08:50→21:57)
[2019-09-27] MEDS ORDERED: INSULIN ASPART 100 UNITS/ML 3 ML PEN SQ SCH (09:00)
--- NOTE | 2019-09-27 09:22 | Progress Notes ---
DATE: 09/27/2019 SUBJECTIVE: A 74-year-old gentleman postop day 1 from a left knee replacement. He had a pretty good night, but then in the middle of night rolled over and started having more pain. Seems to be doing a little bit better this morning. No chest pain or shortness of breath. Not feeling dizzy or lightheaded. OBJECTIVE: VITAL SIGNS: Temperature 37.0. Vital signs are stable. He is hypertensive with blood pressure 171/87. GENERAL: Shows a pleasant elderly male. He is lying in bed, looks reasonably comfortable. EXTREMITIES: Examination of the left leg reveals the dressing to be clean, dry and intact. Leg is well aligned. He can dorsiflex and plantarflex his foot appropriately. He is neurologically intact. LABORATORY DATA: Hemoglobin 13.7. Hematocrit 42.5. Electrolytes are stable. He does have a chronically elevated creatinine which is stable. ASSESSMENT: A 74-year-old gentleman with multiple medical comorbidities postop day 1 from left knee replacement, doing pretty well. He has been a little bit hypertensive. Pain seems to be reasonably well controlled. He is neurologically intact. PLAN: 1. DVT prophylaxis including thigh-high TEDs, SCDs, and aspirin twice a day. 2. PT/OT. Weight bear as tolerated. Left total knee protocol. 3. Pain control, doing okay with current pain regimen. 4. Hypertension. We have the medicine doctors help us with his diabetes and hypertension control. 5. Disposition: We are going to see how he does in therapy. The goal will be to likely get him home with some home health, but is not doing well. He might need a rehab stay.
--- NOTE | 2019-09-27 09:50 | Pharmacy Report ---
Pharmacy Glycemic Short Note 2 - Date of Service September 27, 2019 - Glycemic Short BSG Results (Last 24 hours): 09/26/19 09/26/19 09/26/19 12:50 17:11 20:53 Glucose POC Glucose 144 H 128 H 177 H 09/27/19 09/27/19 04:55 08:05 Glucose 174 H POC Glucose 179 H OUTPATIENT ANTIDIABETIC REGIMEN: * Lantus 40 units SQ HS * Novolog 14 units SQ breakfast, 16 units SQ lunch, 14 units SQ dinner * A1c = 7.8% ASSESSMENT: 09/26: * POD #1. Patient received 39 units of insulin yesterday. * 30 units basal + 9 units bolus * BSGs ranged 128 - 177 mg/dL, acceptable * Fasting BSG this AM was elevated at 179 mg/dL. Will increase basal dose to match home regimen tonight * Lunchtime BSG elevated at 221 mg/dL. Will tighten Novolog parameters with lunch. 09/25: * 74 yo M who is POD #0 s/p L TKA. PHMx is significant for CAD, CKD-III, HLD, HTN. Pharmacy is consulted for glycemic management. * A1c has come down nicely over the past few months (8.7% --> 7.8%). Patient did take his evening dose of Lantus 40 units last evening. Fasting this AM (pre- op) was 170 mg/dL. Could not see where patient received any steroids perioperatively. He is ordered a T2DM diet. * Post-op BSG was 144 mg/dL. Will give Lantus at a 25% reduction from home dose this evening to account for poor PO intake compared to home. Will start with Novolog parameters based on weight and stress of 2 to try to mimic home dosing. PLAN FOR INPATIENT GLYCEMIC CONTROL: * Basal insulin - increased * Lantus 40 units SQ HS * Bolus insulin - tightened * NovoLog per scale ACHS or Q6hrs while NPO * Goal Range: Low 110 mg/dL - High 140 mg/dL * Correction Factor: 15 mg/dL/unit * Nutritional / Prandial insulin per carb ratio of 1 unit per 4 grams CHO consumed PLAN FOR DISCHARGE: * A1c = 7.8%. Pending at this time.
[2019-09-27] MEDS: METOPROLOL SUCC 50MG EXT REL TAB PO SCH ×2 (10:30→21:58)
--- NOTE | 2019-09-27 10:34 | Anesthesiology Progress Note ---
Date of Service September 27, 2019 Anesthesia Post Procedure Vital Signs Vital Signs: Temp Pulse Pulse Pulse Resp BP BP 09/27/19 10:31 93 H 187/89 H 09/27/19 07:09 37.0 C 93 H 18 171/87 H 09/27/19 03:23 37.1 C 89 163/76 H 09/26/19 23:50 37.1 C 92 H 22 192/94 H 09/26/19 23:15 98 H 18 09/26/19 21:19 36.5 C 88 18 184/77 H 09/26/19 17:00 36.2 C L 71 14 202/107 H 09/26/19 15:55 36.2 C L 71 14 184/96 H 09/26/19 15:00 36.3 C L 69 15 165/76 H 09/26/19 14:30 36.3 C L 75 16 163/89 H 09/26/19 13:56 36.4 C L 69 16 142/84 H 09/26/19 13:35 72 16 123/78 09/26/19 13:25 70 16 144/81 H 09/26/19 13:15 36.5 C 68 18 139/75 09/26/19 13:05 77 18 121/71 09/26/19 12:55 77 18 115/64 09/26/19 12:46 36.0 C L 73 14 114/66 09/26/19 10:40 36.8 C 80 20 Pulse Ox 09/27/19 10:31 09/27/19 07:09 96 09/27/19 03:23 96 09/26/19 23:50 98 09/26/19 23:15 92 09/26/19 21:19 93 09/26/19 17:00 98 09/26/19 15:55 99 09/26/19 15:00 98 09/26/19 14:30 95 09/26/19 13:56 100 09/26/19 13:35 100 09/26/19 13:25 100 09/26/19 13:15 100 09/26/19 13:05 100 09/26/19 12:55 100 09/26/19 12:46 98 09/26/19 10:40 98 Notes Mental Status: alert / awake / arousable Patient Amnestic to Procedure: Yes Nausea / Vomiting: adequately controlled Pain: adequately controlled Airway Patency, RR, SpO2: stable & adequate BP & HR: stable & adequate Hydration State: stable & adequate Neuraxial Anesthesia: was administered and sensory block resolved Anesthetic Complications: no major complications apparent
--- NOTE | 2019-09-27 11:49 | Hospitalist Progress Note ---
Date of Service September 27, 2019 Assessment & Plan (1) Left knee DJD: s/p L TKA with Dr. Bales on 09/25 Pre-op Hb 14.4, minimal decrease to 13.7 today Diet and DVT proph as per ortho (2) CAD (coronary artery disease): Continue aspirin 81mg, home metoprolol (3) S/P CABG (coronary artery bypass graft): 2004 (4) Type 2 diabetes mellitus: SSI PRN glargine 40 units HS Ortho c/s for pharm DM management A1c 7.8 BSGs acceptable (5) Hyperlipidemia: continue ezetimibe-simvastatin (6) GERD (gastroesophageal reflux disease): continue home meds (7) Hypertension: Patient has been running hypertensive over the night and today, blood pres sures 180s/90s. Asymptomatic. continue metoprolol, bumex Patient should monitor blood pressures at home and follow up with pcp if they are persistently elevated outside of the near post op period. (8) Secondary hyperparathyroidism: noted (9) Chronic kidney disease, stage III (moderate): Baseline cr 1.6-1.7, creatinine at baseline (10) DVT prophylaxis: As per ortho Medicine will sign off. If patient were to become symptomatic with his elevated blood pressures - chest pain, headaches, sob, epistaxis, palpitations, please don't hesitate to give us a call to see him again but otherwise he can trend his blood pressures and follow up with his pcp for any necessary titration of his blood pressure medications. Admission and Anticipated Discharge Date Admission Date: September 26, 2019 Subjective Mr. Schmidt has some pain at his incision site but otherwise has no complaints. ROS Constitutional: no chills, aches, sweats or fever Respiratory: no sob,cough, sputum, or wheezing Cardiac: no chest pain, palpitations, edema, orthopnea or lightheadedness GI: no abdominal pain, nausea, vomiting, diarrhea or constipation : no dysuria or hesitancy Extremities: no joint pain or weakness Skin: no rash All other systems reviewed and negative Physical Exam Physical Exam: General: no distress Eyes: normal inspection, PERLL Respiratory: chest non tender, clear to auscultation, normal breath sounds, no respiratory distress, no accessory muscle use Cardiac: regular rate and rhythm, no rub or gallop, no murmur, no edema, no jvd GI/: active bowel sounds, no abd pain or tenderness, soft, non distended Extremities: normal range of motion, normal strength, non tender Neuro/Psych: alert and oriented x 3, normal mood and affect Skin: normal color, dry Results & Data Results & Data ([facility]) Vital Signs (Past 12 Hours) Vital Signs Temp Pulse Resp BP BP Pulse Ox 09/27/19 11:23 36.6 C 90 18 180/96 H 96 09/27/19 10:31 93 H 187/89 H 09/27/19 07:09 37.0 C 93 H 18 171/87 H 96 09/27/19 03:23 37.1 C 89 163/76 H 96 09/26/19 23:50 37.1 C 92 H 22 192/94 H 98 PG Care Time/CCT Total # of Minutes Spent Total Time Spent with Patient: Total time spent is greater than 50% in coordination of care (as documented) at patient's floor/unit and/or counseling patient: Coding Level of Care Code 88241 Subseq Hosp Care Lvl 3 Diagnoses Left knee DJD M17.12 CAD (coronary artery disease) I25.10 S/P CABG (coronary artery bypass graft) Z95.1 Type 2 diabetes mellitus E11.9 Hyperlipidemia E78.5 GERD (gastroesophageal reflux disease) K21.9 Hypertension I10 Secondary hyperparathyroidism N25.81 Chronic kidney disease, stage III (moderate) N18.3 DVT prophylaxis Z29.9
[2019-09-27] MEDS ORDERED: INSULIN GLARGINE SOLOSTAR 100 UNITS/ML 3 ML PEN SQ SCH (21:00)
[2019-09-27] MEDS ORDERED: EZETIMIBE 10 MG TABLET PO SCH (21:00)
[2019-09-27] MEDS ORDERED: SIMVASTATIN 80 MG TAB PO SCH (21:00)
[2019-09-27] MEDS: SENNA 8.6 MG TAB PO SCH (21:59)
[2019-09-28] MEDS: OXYCODONE HCL IR 5 MG TAB (IMMEDIATE RELEASE) PO PRN (00:02)
[2019-09-28] MEDS: ACETAMINOPHEN 500 MG TAB PO SCH ×2 (05:29→13:08)
--- NOTE | 2019-09-28 09:12 | Progress Notes ---
DATE: 09/28/2019 SUBJECTIVE: A 74-year-old gentleman postop day 2 from a left knee replacement. He is doing pretty well. Pain seems to be better controlled this morning. Had a pretty good night. Slept 5-6 hours. No chest pain or shortness of breath. Not feeling dizzy or lightheaded. OBJECTIVE: VITAL SIGNS: Temperature 36.9. Vital signs stable. GENERAL: Physical examination shows a pleasant, elderly male. He is lying in bed, looks comfortable. EXTREMITIES: Examination of the left leg reveals the dressing to be clean, dry and intact. Leg is well aligned. He can dorsiflex and plantarflex his foot appropriately. He is neurologically intact. ASSESSMENT: A 74-year-old gentleman postop day 2 from a left knee replacement, doing pretty well. Pain is controlled. He is neurologically intact. PLAN: 1. DVT prophylaxis include thigh-high TEDs, SCDs, and aspirin twice a day. 2. PT/OT, weight bear as tolerated. Left total knee protocol. 3. Pain control, doing pretty well with current pain regimen. 4. Disposition: Plan to discharge to home with some home health likely later today.
[2019-09-28] MEDS: DOCUSATE SODIUM 100 MG CAP PO SCH (09:20)
[2019-09-28] MEDS: ASCORBIC ACID 500 MG TAB PO SCH (09:20)
[2019-09-28] MEDS: FERROUS GLUCONATE 324 MG TAB PO SCH (09:20)
[2019-09-28] MEDS: BUMETANIDE 1 MG TAB PO SCH (09:20)
[2019-09-28] MEDS: CEROVITE ADV FORMULA TAB PO SCH (09:21)
[2019-09-28] MEDS: ASPIRIN 81 MG ECTAB PO SCH (09:21)
[2019-09-28] MEDS: METOPROLOL SUCC 50MG EXT REL TAB PO SCH (09:21)
[2019-09-28] MEDS: MULTIVITAMIN TAB PO SCH (09:21)
[2019-09-28] MEDS: INSULIN ASPART 100 UNITS/ML 3 ML PEN SC SCH ×2 (09:25→12:31)
[2019-09-28] MEDS: TAPENTADOL HCL ER 50 MG TABCR PO SCH (09:31)
[2019-09-28] MEDS: lisinopriL 10 MG TAB PO SCH (12:10)
--- NOTE | 2019-10-04 12:48 | Discharge Summary ---
Date of Service October 04, 2019 Admission HPI Per Admitting Provider Documented in the H&P Admission Exam (Per Admitting) Constitutional Documented in the H&P Discharge Data Consultations 09/26/19 14:12 Consult Case Management - Discharge Planning Routine Consult Hospitalist Routine Procedures Performed Operation Date: 09/26/19 10:55 Actual Procedures p Left Total Knee Arthroplasty(Left) - Forest Bales MD Hospital Course (1) S/P total knee replacement: 74-year-old male met on 09/26/2019 underwent total knee replacement. He tolerated the procedure well and there were no complications. He was transferred to the PACU postoperatively and later to the orthopedic for further care. He was given Ancef for antibiotic prophylaxis. He was given GISSELL sto ckings, SCDs, and aspirin for DVT prophylaxis. His hemoglobin, hematocrit, and vital signs are monitored during his hospital stay remained stable. He did not require blood transfusions. He was followed by the hospitalist service throughout his admission. There were no complications. Postoperative day 2 he was tolerating a diabetic diet, pain was controlled with oral pain medicine, and was participating in physical therapy. On postop day 2 was discharged home set up with home health services. He was given printed discharge instructions as well as new prescriptions for extra strength Tylenol, aspirin, and oxycodone. He physical therapy. He is weightbearing as tolerated. Continue GISSELL stockings. Follow-up approximately 2 weeks postop or sooner if there are any problems or concerns. Coding Level of Care Code None Diagnoses S/P total knee replacement Z96.659
== END 2019-09-28 14:02 | disposition home health service (06) ==
LOC: 3E 08:44 → ASU 08:44
DX: E66.9 Obesity, unspecified; Z83.3 Family history of diabetes mellitus; M17.12 Unilateral primary osteoarthritis, left knee; Z79.82 Long term (current) use of aspirin; Z79.899 Other long term (current) drug therapy; I25.10 Atherosclerotic heart disease of native coronary artery without angina pectoris; K21.9 Gastro-esophageal reflux disease without esophagitis; Z88.8 Allergy status to other drugs, medicaments and biological substances; Z79.4 Long term (current) use of insulin; E78.00 Pure hypercholesterolemia, unspecified; N18.3 Chronic kidney disease, stage 3 (moderate); H81.09 Meniere's disease, unspecified ear; G47.30 Sleep apnea, unspecified; Z82.49 Family history of ischemic heart disease and other diseases of the circulatory system; E11.9 Type 2 diabetes mellitus without complications; Z95.5 Presence of coronary angioplasty implant and graft; N25.81 Secondary hyperparathyroidism of renal origin; Z87.891 Personal history of nicotine dependence; E78.5 Hyperlipidemia, unspecified; I12.9 Hypertensive chronic kidney disease with stage 1 through stage 4 chronic kidney disease, or unspecified chronic kidney disease

== ENCOUNTER 2020-09-26 15:08 | Inpatient (IN) ==
[2020-09-26] MEDS ORDERED: ONDANSETRON INJ 2 MG/ML 2 ML VIAL IV STA (15:16)
[2020-09-26] MEDS ORDERED: SODIUM CHLORIDE 0.9% 1000ML 1,000 ML IV SCH (15:30)
--- NOTE | 2020-09-26 15:30 | Emergency Department Note ---
Impression & Plan Nausea, Fatigue ED Provider Note Provider: Sae Waite MD DATE OF SERVICE: 09/26/2020 CHIEF COMPLAINT: Nausea, fatigue HISTORY OF PRESENT ILLNESS: Patient is a 75-year-old gentleman past medical history including CAD with CABG, CKD, hypertension, UTI with recent evaluation here 6 days ago with headache and dizziness and found to have a 4 and half centimeter ICH. Was transferred to [place] at that time. Released has been doing rehab at [facility]. He reports that he has been very fatigued last day or 2 with nausea and not eating or drinking very much. Denies any headache or dizziness currently. Denies any falls. Denies any chest pain, shortness of breath, or abdominal pain. Denies any numbness or weakness. He denies fever. States he is just very tired and nauseous. REVIEW OF SYSTEMS: A total of 10 review of systems was obtained and negative except as stated above in the HPI. PAST MEDICAL HISTORY: As noted above MEDICATIONS: Reviewed medication list from the facility. SOCIAL HISTORY: and normally lives at home but currently at [facility] rehab PHYSICAL EXAM: GENERAL: alert and oriented in no acute distress on stretcher resting with eyes closed Head: normocephalic and atraumatic EYES: No injection, discharge or icterus. PERRL NECK: Trachea midline. Supple. ENT: Mucous membranes pink and moist. LUNGS: Airway patent. No retractions. Breath sounds clear with good air entry bilaterally. HEART: Regular rate and rhythm. No chest wall tenderness ABDOMEN: Soft and non-tender, without guarding or rebound. SKIN: Acyanotic, warm, dry, without rashes EXTREMITIES: Without swelling, tenderness or deformity NEUROLOGICAL: No focal deficits. No aphasia. No facial droop or slurred speech. Normal strength and tone in the extremities. Sensation to gross touch normal. EK normal sinus rhythm without PVC or PAC. No acute ST segment elevation or depression. QTC 474. CONTINUOUS CARDIAC MONITORING: was ordered and showed a heart rate of 60s to 90s bpm in normal sinus rhythm Patient's laboratory studies and imaging reviewed. Differential includes Infection, dehydration, metabolic abnormality, hypo/hyperglycemia, electrolyte disturbance, anemia, hypoxia, cardiac sources, intracerebral event, toxicologic, neurologic, as well as other pathologies. IMPRESSION/MEDICAL DECISION MAKING: Patient complains of nausea and fatigue. No trauma. Recent significant head bleed. Repeat CT here per radiology without significant change or signs of hyd rocephalus. Chest x-ray appears clear. No fevers reported. Basic labs obtained. Patient without focal neurological deficit is alert although he states he feels very tired. Not hypoxic, tachycardic, or febrile here. Blood work today shows leukocytosis of 14-1/2 slightly decreased from 6 days ago. No significant anemia or thrombocytopenia noted. No significant electrolyte abnormality with stable chronic renal disease. No transaminitis noted. No evidence of pancreatitis and normal thyroid function. Troponin is undetectable and EKG without significant ischemic changes. Urinalysis not impressive for infection with trace ketones. Patient's later arrives and describes that he was pretty anxious to go home when he left the hospital at [place] on Monday and was eating well. Since arrival at [facility] started on Monday over the last 2 to 3 days she is very fatigued and nauseous refractory to Zofran. Minimal to no improvement with Zofran here. Wanted to be cautious with any more sedating antiemetics given his fatigue here in the ER. Hypoxic into the low suspicion at this time for hypercarbia. Unsure of the exact etiology of his increased fatigue and continued nausea. He leukocytosis will complete a CT of the abdomen pelvis without contrast given his CKD to exclude occult issue here. Discussed with his at bedside and the patient. Discussed with the hospit alist for further observation given his nausea. Did reach out to neurosurgery at [place] Dr. Flores who stated some of the surrounding edema can sometimes cause fatigue and nausea. Stated there is no particular treatment for this and steroids are usually not that helpful. Recommended continued monitoring and supportive care. Patient without significant hyponatremia here but did receive some IV fluids. DIAGNOSIS: Nausea, fatigue DISPOSITION: Hospitalist will evaluate Patient and were agreeable with this plan. Past Med/Surg History Medical History (Updated 09/26/20 @ 16:02 by Sae Waite M.D.) CAD (coronary artery disease) CABG x2 (2004) Chronic kidney disease, stage III (moderate) baseline creatinine 1.6-1.7 per chart review Diabetes mellitus, type 2 IDDM GERD (gastroesophageal reflux disease) Hearing deficit left ear deafness Hyperlipidemia Hypertension Meniere's disease Secondary hyperparathyroidism Sensorineural hearing loss (SNHL) of left ear with restricted hearing of right ear bilateral hearing aides Sleep apnea CPAP Urinary tract infection hx. no problems recently. Surgical History (Updated 09/10/20 @ 11:54 by Lars Kramer MD) History of arthroscopy LEFT KNEE History of cardiac cath 2005 @ [facility] [place], no stents History of cataract surgery BILATERAL History of colonoscopy with polypectomy History of coronary artery bypass graft X2 (2004) [facility] History of endoscopic sinus surgery History of esophagogastroduodenoscopy (EGD) History of left knee replacement History of tonsillectomy Family History Mother Family history of diabetes mellitus Myocardial infarction Diabetes Cardiac disorder Hypertension Heart disease Father Myocardial infarction Cardiac disorder Alcohol abuse Brother Myocardial infarction Leukemia Alcohol abuse Other No family history of adverse response to anesthesia Pure hypercholesterolemia Social History Smoking Status: Former smoker Tobacco Type: Cigarettes Second Hand Exposure: No; Hx Alcohol Use: Yes Alcohol type: hard liquor Hx Substance Use: No Preferred Language: Hebrew Communication Ability: Effective Visual Impairment: No Limitations Iron Pellet Tester Required: No Beliefs That Will Affect Care: None marital status: Current Living Situation: Spouse current occupational status: retired Feels Safe at Home: Yes Dental Care, Regularly: Yes Physical Activity Frequency: Does not Exercise Seatbelt Use: always Sunscreen Use: No Assistive Devices: Hearing Aid - Bilateral Allergies Allergies Allergy/AdvReac Type Severity Reaction Status Date / Time atorvastatin AdvReac Intermediate severe Verified 09/26/20 16:56 muscle aches Home Meds Home Medications Medication Instructions Recorded Confirmed meclizine 25 mg tablet 25 mg PO Q6H PRN #30 tab 10/31/18 09/26/20 vitamin A-vitamin C-vit E-min 1 tab PO QAM 10/31/18 09/26/20 tablet calcium carbonate [Tums] 200 mg PO BID PRN 09/04/19 09/26/20 aspirin [Aspirin Low Dose] 81 mg PO QAM 12/12/19 09/26/20 ezetimibe-simvastatin [Vytorin 1 tab PO HS 12/12/19 09/26/20 10-80] blood-glucose meter #1 ea 07/16/20 09/17/20 flash glucose scanning reader #1 ea 07/16/20 09/17/20 flash glucose sensor #1 ea 07/16/20 09/17/20 Previous Rx's Medication Instructions Recorded bumetanide 1 mg tablet 1 mg PO BID #180 tab 11/02/18 insulin glargine 100 unit/mL (3 40 unit SUBCUT HS 90 Days #36 ml 05/09/19 mL) subcutaneous pen nitroglycerin 0.4 mg sublingual 0.4 mg SUBLINGUAL Q5M PRN #20 tab 10/24/19 tablet lisinopril 20 mg tablet 30 mg PO QAM #135 tab 11/12/19 metoprolol succinate 100 mg 100 mg PO BID #180 tab 11/12/19 tablet,extended release 24 hr insulin aspart U-100 100 unit/mL 50 unit SUBCUT DAILY 90 Days #45 ml 07/24/20 (3 mL) subcutaneous pen pen needle, diabetic 32 gauge x #400 ea 07/24/20" calcitriol 0.5 mcg capsule 0.5 mcg PO DAILY #90 cap 09/09/20 Results & Data (ED) Vital Signs Vital Signs - 24 hr 09/26/20 15:25 09/26/20 16:02 09/26/20 16:04 Temperature 36.8 C Temperature Source Oral Pulse Rate 88 74 Respiratory Rate 18 18 18 Respiratory Effort / Characteristics Non-Labored Respiratory Depth Respiratory Pattern Blood Pressure 158/86 H Blood Pressure [Left Radial Artery] 158/86 H Blood Pressure Mean 110 Blood Pressure Mean [Left Radial Artery] 110 Blood Pressure Position [Left Radial Artery] Pulse Oximetry 96 96 96 Oxygen Delivery Method Room Air Room Air Room Air Sepsis Recent Fever Within 48 Hours No Sepsis New/Unexplained Change in Mental Status No Sepsis Action Taken by Nursing No Action Required 09/26/20 17:51 09/26/20 19:06 09/26/20 19:43 Temperature 37.0 C Temperature Source Oral Pulse Rate Respiratory Rate 18 18 16 Respiratory Effort / Characteristics Non-Labored Non-Labored Non-Labored Respiratory Depth Normal Normal Normal Respiratory Pattern Regular Regular Regular Blood Pressure Blood Pressure [Left Radial Artery] 169/99 H 164/59 H 140/66 Blood Pressure Mean Blood Pressure Mean [Left Radial Artery] 122 94 90 Blood Pressure Position [Left Radial Artery] Lying Right Lateral Right Lateral Pulse Oximetry 96 96 97 Oxygen Delivery Method Room Air Room Air Sepsis Recent Fever Within 48 Hours Sepsis New/Unexplained Change in Mental Status Sepsis Action Taken by Nursing Laboratory Data Result diagrams: 09/26/20 15:34 09/26/20 15:34 Lab Results 09/26/20 09/26/20 09/26/20 Range/Units 15:34 15:34 15:34 WBC 14.54 H (4.8-10.8) K/uL RBC 5.55 (4.7-6.1) M/uL Hgb 17.1 (14.0-18.0) g/dL Hct 48.3 (42-52) % MCV 87.0 (80-100) fL MCH 30.8 (25-34) pg MCHC 35.4 (32-36) g/dL RDW Std Deviation 41.0 (36.4-46.3) fL RDW Coeff of Sudha 12.8 (11.5-14.5) % Plt Count 213 (130-400) K/uL MPV 10.4 (7.4-10.4) fL Immature Gran % (Auto) 0.3 % Neut % (Auto) 84.3 % Lymph % (Auto) 5.6 % [place] % (Auto) 9.8 % Eos % (Auto) 0.0 % Baso % (Auto) 0.0 % Neut # (Auto) 12.25 H (1.4-6.5) K/uL Lymph # (Auto) 0.82 L (1.2-3.4) K/uL [place] # (Auto) 1.42 H (0.11-0.59) K/uL Eos # (Auto) 0.00 (0-0.5) K/uL Baso # (Auto) 0.00 (0-0.2) K/uL Immature Gran # (Auto) 0.05 H (0.00-0.02) K/uL PT 11.3 (9.0-12.0) Seconds INR 1.1 (0.9-1.1) Sodium 134 L (136-145) mmol/L Potassium 3.8 (3.5-5.1) mmol/L Chloride 102 (98-107) mmol/L Carbon Dioxide 26 (21-32) mmol/L Anion Gap 6.0 (3-11) BUN 34 H (7-18) mg/dl Creatinine 1.81 H (0.6-1.4) mg/dl Est Cr Clr Drug Dosing 45.0 ml/min Est GFR ( Amer) 40.9 ml/min Est GFR (Non-Af Amer) 35.3 ml/min BUN/Creatinine Ratio 19.0 (10-20) Glucose 208 H (70-99) mg/dl Lactate (0.4-2.0) mmol/L Calcium 9.3 (8.5-10.1) mg/dl Magnesium 2.3 (1.8-2.4) mg/dl Total Bilirubin 1.4 H (0.2-1) mg/dl AST 13 L (15-37) U/L ALT 24 (12-78) U/L Alkaline Phosphatase 58 (45-117) U/L Troponin I < 0.015 (0-0.045) ng/ml Total Protein 6.9 (6.4-8.2) gm/dl Albumin 3.3 L (3.4-5.0) gm/dl Globulin 3.6 (2.5-4.0) gm/dl Albumin/Globulin Ratio 0.9 (0.9-2) Lipase 169 (73-393) U/L TSH 0.821 (0.300-4.500) uIu/ml Specimen Hemolysis Urine Color Urine Appearance (Clear) Urine pH (4.5-7.5) Ur Specific [place] (1.000-1.030) Urine Protein (Negative) Urine Glucose (UA) (Negative) Urine Ketones (Negative) Urine Blood (Negative) Urine Nitrite (Negative) Urine Bilirubin (Negative) Urine Urobilinogen (Negative) Ur Leukocyte Esterase (Negative) Urine WBC (Auto) (0-5) /hpf Urine RBC (Auto) (0-4) /hpf U Hyaline Cast (Auto) (0-5) /lpf U Epithel Cells (Auto) (0-5) /lpf Urine Bacteria (Auto) (Negative) COVID-19 Eval Order SARS-CoV-2 (PCR) (Negative) 09/26/20 09/26/20 09/26/20 Range/Units 15:34 15:34 15:34 WBC (4.8-10.8) K/uL RBC (4.7-6.1) M/uL Hgb (14.0-18.0) g/dL Hct (42-52) % MCV (80-100) fL MCH (25-34) pg MCHC (32-36) g/dL RDW Std Deviation (36.4-46.3) fL RDW Coeff of Sudha (11.5-14.5) % Plt Count (130-400) K/uL MPV (7.4-10.4) fL Immature Gran % (Auto) % Neut % (Auto) % Lymph % (Auto) % [place] % (Auto) % Eos % (Auto) % Baso % (Auto) % Neut # (Auto) (1.4-6.5) K/uL Lymph # (Auto) (1.2-3.4) K/uL [place] # (Auto) (0.11-0.59) K/uL Eos # (Auto) (0-0.5) K/uL Baso # (Auto) (0-0.2) K/uL Immature Gran # (Auto) (0.00-0.02) K/uL PT (9.0-12.0) Seconds INR (0.9-1.1) Sodium (136-145) mmol/L Potassium (3.5-5.1) mmol/L Chloride (98-107) mmol/L Carbon Dioxide (21-32) mmol/L Anion Gap (3-11) BUN (7-18) mg/dl Creatinine (0.6-1.4) mg/dl Est Cr Clr Drug Dosing ml/min Est GFR ( Amer) ml/min Est GFR (Non-Af Amer) ml/min BUN/Creatinine Ratio (10-20) Glucose (70-99) mg/dl Lactate 1.5 (0.4-2.0) mmol/L Calcium (8.5-10.1) mg/dl Magnesium (1.8-2.4) mg/dl Total Bilirubin (0.2-1) mg/dl AST (15-37) U/L ALT (12-78) U/L Alkaline Phosphatase (45-117) U/L Troponin I (0-0.045) ng/ml Total Protein (6.4-8.2) gm/dl Albumin (3.4-5.0) gm/dl Globulin (2.5-4.0) gm/dl Albumin/Globulin Ratio (0.9-2) Lipase (73-393) U/L TSH (0.300-4.500) uIu/ml Specimen Hemolysis Urine Color Urine Appearance (Clear) Urine pH (4.5-7.5) Ur Specific [place] (1.000-1.030) Urine Protein (Negative) Urine Glucose (UA) (Negative) Urine Ketones (Negative) Urine Blood (Negative) Urine Nitrite (Negative) Urine Bilirubin (Negative) Urine Urobilinogen (Negative) Ur Leukocyte Esterase (Negative) Urine WBC (Auto) (0-5) /hpf Urine RBC (Auto) (0-4) /hpf U Hyaline Cast (Auto) (0-5) /lpf U Epithel Cells (Auto) (0-5) /lpf Urine Bacteria (Auto) (Negative) COVID-19 Eval Order Covid19 at [facility] SARS-CoV-2 (PCR) NEGATIVE (Negative) 09/26/20 Range/Units 16:30 WBC (4.8-10.8) K/uL RBC (4.7-6.1) M/uL Hgb (14.0-18.0) g/dL Hct (42-52) % MCV (80-100) fL MCH (25-34) pg MCHC (32-36) g/dL RDW Std Deviation (36.4-46.3) fL RDW Coeff of Sudha (11.5-14.5) % Plt Count (130-400) K/uL MPV (7.4-10.4) fL Immature Gran % (Auto) % Neut % (Auto) % Lymph % (Auto) % [place] % (Auto) % Eos % (Auto) % Baso % (Auto) % Neut # (Auto) (1.4-6.5) K/uL Lymph # (Auto) (1.2-3.4) K/uL [place] # (Auto) (0.11-0.59) K/uL Eos # (Auto) (0-0.5) K/uL Baso # (Auto) (0-0.2) K/uL Immature Gran # (Auto) (0.00-0.02) K/uL PT (9.0-12.0) Seconds INR (0.9-1.1) Sodium (136-145) mmol/L Potassium (3.5-5.1) mmol/L Chloride (98-107) mmol/L Carbon Dioxide (21-32) mmol/L Anion Gap (3-11) BUN (7-18) mg/dl Creatinine (0.6-1.4) mg/dl Est Cr Clr Drug Dosing ml/min Est GFR ( Amer) ml/min Est GFR (Non-Af Amer) ml/min BUN/Creatinine Ratio (10-20) Glucose (70-99) mg/dl Lactate (0.4-2.0) mmol/L Calcium (8.5-10.1) mg/dl Magnesium (1.8-2.4) mg/dl Total Bilirubin (0.2-1) mg/dl AST (15-37) U/L ALT (12-78) U/L Alkaline Phosphatase (45-117) U/L Troponin I (0-0.045) ng/ml Total Protein (6.4-8.2) gm/dl Albumin (3.4-5.0) gm/dl Globulin (2.5-4.0) gm/dl Albumin/Globulin Ratio (0.9-2) Lipase (73-393) U/L TSH (0.300-4.500) uIu/ml Specimen Hemolysis Urine Color Yellow Urine Appearance Clear (Clear) Urine pH 5.0 (4.5-7.5) Ur Specific [place] 1.027 (1.000-1.030) Urine Protein 2+ H (Negative) Urine Glucose (UA) 1+ H (Negative) Urine Ketones Trace H (Negative) Urine Blood Negative (Negative) Urine Nitrite Negative (Negative) Urine Bilirubin Negative (Negative) Urine Urobilinogen Negative (Negative) Ur Leukocyte Esterase Negative (Negative) Urine WBC (Auto) 1-5 (0-5) /hpf Urine RBC (Auto) 0-4 (0-4) /hpf U Hyaline Cast (Auto) 1-5 (0-5) /lpf U Epithel Cells (Auto) 5-10 H (0-5) /lpf Urine Bacteria (Auto) Negative (Negative) COVID-19 Eval Order SARS-CoV-2 (PCR) (Negative) Administered Medications Discontinued Medications Sodium Chloride (Nss 1000ml) 1,000 mls @ 999 mls/hr IV .Q1H1M BLAZE Stop: 09/26/20 16:30 Last Infusion: 09/26/20 18:06 Dose: 0 mls/hr Documented by: [id number] Infusion: 09/26/20 16:54 Dose: 0 mls/hr Documented by: [id number] Admin: 09/26/20 15:54 Dose: 999 mls/hr Documented by: [id number] Ondansetron HCl (Ondansetron Inj 2 Mg/Ml 2 Ml Vial) 4 mg IV NOW STA Stop: 09/26/20 15:17 Last Admin: 09/26/20 15:53 Dose: 4 mg Documented by: [id number] Imaging Data Radiologist's Impression: Chest X-Ray 09/26/20 15:16 XR chest 1V portable CLINICAL HISTORY: weakness COMPARISON STUDY: 09/20/2020 FINDINGS: The heart remains borderline enlarged. There are postsurgical changes of midline sternotomy. There is no failure. There is no lobar consolidation. There are low lung volumes with basilar atelectatic changes.[ IMPRESSION: No active disease in the chest. ACT 112: Negative or not required by law. Electronically signed by: Trevor Cheney M.D. 09/26/2020 3:[address] 09/26/20 15:16 CT head/brain wo con CLINICAL HISTORY: nausea, weakness, recent headbleed COMPARISON STUDY: 09/20/2020 TECHNIQUE: Axial CT of the brain is performed from the vertex to the skull base. IV contrast was not administered for this examination. A dose lowering technique was utilized adhering to the principles of ALARA. CT DOSE: 614.27 mGy.cm FINDINGS: There is a 4.5 cm right posterior parietal intraparenchymal hemorrhage, similar in appearance to the preceding study. There is surrounding vasogenic edema. There is trace hemorrhage within the right occipital horn. There is mild mass ef fect on the right lateral ventricle. There is stable 1 mm [id number]-kr-kort midline shift. There are moderately extensive white matter hypodensities likely on a small vessel basis. There is no evidence of pathologic ventricular dilatation. There is no evidence of acute sinusitis IMPRESSION: 1. No significant change in the size of 4.5 cm right parietal intraparenchymal hematoma with surrounding white matter edema. 2. Suspected trace intraventricular blood. 3. No evidence of hydrocephalus ACT 112: Negative or not required by law. Electronically signed by: Trevor Cheney M.D. 09/26/2020 3:50 PM Abdomen/Pelvis CT 09/26/20 16:52 CT SCAN OF THE ABDOMEN AND PELVIS WITHOUT CONTRAST CLINICAL HISTORY: nausea, fatigue COMPARISON STUDY: 03/30/2016 TECHNIQUE: CT scan of the abdomen and pelvis was performed from the lung bases to the proximal femurs. Images are reviewed in the axial, sagittal, and coronal planes. IV contrast was not administered for this examination. A dose lowering technique was utilized adhering to the principles of ALARA. CT DOSE: 1313.49 mGy.cm FINDINGS: Lower chest: There is respiratory motion artifact. There are mild basilar atelectatic changes. There are coronary artery calcifications. Liver: The unenhanced liver is normal in size, contour, and attenuation. There is no intrahepatic biliary ductal dilatation. Gallbladder: Cholelithiasis Spleen: Normal in size and attenuation. Pancreas: There is a small pancreatic neck calcification. No pancreatic masses are visualized in this noncontrast study. Adrenal glands: Unremarkable. Kidneys: There is bilateral perinephric stranding. There is no hydronephrosis. No renal, ureteral, or bladder calculi are visualized. Bowel: There are no transition zones indicate bowel obstruction. There are no findings to indicate acute appendicitis. There is no evidence of acute diverticulitis. Peritoneum: There is no intraperitoneal free air or abdominal ascites. Is a fat- containing umbilical hernia Vasculature: The abdominal aorta is normal in course and caliber. Adenopathy: None. Pelvic viscera: There is mild prostatomegaly Skeletal structures: There are multilevel degenerative changes within the lumbar spine with multilevel spinal stenosis. There is gynecomastia. IMPRESSION: 1. No evidence of bowel obstruction. No evidence of free air 2. Cholelithiasis 3. No renal, ureteral, or bladder calculi identified 4. No evidence of acute diverticulitis. No evidence of acute appendicitis. ACT 112: Negative or not required by law. Electronically signed by: Trevor Cheney M.D. 09/26/2020 5:33 PM Discharge Plan Visit Data Chief Complaint: Weakness Stated Complaint: LETHARGY, NAUSEA ED Provider: Sae Waite Discharge Problem: Nausea, Fatigue Patient Disposition: Being Evaluated by Hospitalist Forms Stand Alone Forms: iCurrent Prescriptions Prescriptions: No Action bumetanide 1 mg tablet 1 mg PO BID Qty: 180 RF: 3 Lantus Solostar U-100 Insulin 100 unit/mL (3 mL) insulin pen 40 unit SUBCUT HS 90 Days Qty: 36 RF: 3 nitroglycerin 0.4 mg tablet, sublingual 0.4 mg Sublingual Q5M PRN (Reason: Chest Pain) Qty: 20 RF: 3 lisinopril 20 mg tablet 30 mg PO QAM Qty: 135 RF: 3 metoprolol succinate 100 mg tablet extended release 24 hr 100 mg PO BID Qty: 180 RF: 3 (DME) pen needle, diabetic [BD Ultra-Fine Lainey Pen Needle] 32 gauge x 5/32" needle See Dose Instructions .ROUTE .MEDSUPPLY Qty: 400 RF: 3 insulin aspart U-100 [Novolog Flexpen U-100 Insulin] 100 unit/mL (3 mL) insulin pen 50 unit SUBCUT DAILY 90 Days Qty: 45 RF: 3 calcitriol 0.5 mcg capsule 0.5 mcg PO DAILY Qty: 90 RF: 3 (DME) blood-glucose meter Misc See Rx Instructions .ROUTE .MEDSUPPLY Qty: 1 RF: 0 (DME) FreeStyle Porfirio 2 Sensor Kit See Rx Instructions .ROUTE .MEDSUPPLY Qty: 1 RF: 0 (DME) FreeStyle Porfirio 2 [place] Misc See Rx Instructions .ROUTE .MEDSUPPLY Qty: 1 RF: 0 meclizine 25 mg tablet 25 mg PO Q6H PRN (Reason: Dizziness) Qty: 30 RF: 0 Vision tablet 1 tab PO QAM RF: 0 ezetimibe-simvastatin [Vytorin 10-80] 10-80 mg tablet 1 tab PO HS RF: 0 aspirin [Aspirin Low Dose] 81 mg Tablet,Delayed Release (Dr/Ec) 81 mg PO QAM RF: 0 calcium carbonate [Tums] 200 mg calcium (500 mg) Tablet,Chewable 200 mg PO BID PRN (Reason: Heartburn) RF: 0 Referrals Referrals: Caleb Arias MD [Primary Care Provider] - Discharge Problem: Fatigue Qualifiers: Fatigue type: unspecified Qualified Code(s): R53.83 - Other fatigue
--- NOTE | 2020-09-26 15:36 | XRay Report ---
XR chest 1V portable CLINICAL HISTORY: weakness COMPARISON STUDY: 09/20/2020 FINDINGS: The heart remains borderline enlarged. There are postsurgical changes of midline sternotomy . There is no failure. There is no lobar consolidation. There are low lung volumes with basilar atele ctatic changes.[ IMPRESSION: No active disease in the chest. ACT 112: Negative or not required by law. Electronically signed by: Trevor Cheney M.D. 09/26/2020 3:35 PM
--- NOTE | 2020-09-26 15:52 | CT Scan Report ---
CT head/brain wo con CLINICAL HISTORY: nausea, weakness, recent headbleed COMPARISON STUDY: 09/20/2020 TECHNIQUE: Axial CT of the brain is performed from the vertex to the skull base. IV contrast was not administered for this examination. A dose lowering technique was utilized adhering to the principles of ALARA. CT DOSE: 614.27 mGy.cm FINDINGS: There is a 4.5 cm right posterior parietal intraparenchymal hemorrhage, similar in appearance to the preceding study. There is surrounding vasogenic edema. There is trace hemorrhage within the right occ ipital horn. There is mild mass effect on the right lateral ventricle. There is stable 1 mm right-to- left midline shift. There are moderately extensive white matter hypodensities likely on a small vessel basis. There is no evidence of pathologic ventricular dilatation. There is no evidence of acute sinusitis IMPRESSION: 1. No significant change in the size of 4.5 cm right parietal intraparenchymal hematoma with surround ing white matter edema. 2. Suspected trace intraventricular blood. 3. No evidence of hydrocephalus ACT 112: Negative or not required by law. Electronically signed by: Trevor Cheney M.D. 09/26/2020 3:50 PM
[2020-09-26 16:00] LABS: Hematocrit (blood only) 48.3 % (42-52); Hemoglobin 17.1 g/dL (14.0-18.0); Immature Granulocytes # (auto) 0.05 K/uL (0.00-0.02); Immature Granulocytes % (auto) 0.3 %; Lymphocytes # (auto) 0.82 K/uL (1.2-3.4); Lymphocytes % (auto) 5.6 %; Mean Corpuscular Hemoglobin 30.8 pg (25-34); Mean Corpuscular Hgb Conc 35.4 g/dL (32-36); Mean Platelet Volume 10.4 fL (7.4-10.4); Monocytes # (auto) 1.42 K/uL (0.11-0.59); Monocytes % (auto) 9.8 %; Neutrophils # (auto) 12.25 K/uL (1.4-6.5); Neutrophils % (auto) 84.3 %; Platelet Count 213 K/uL (130-400); RDW Coefficient of Variation 12.8 % (11.5-14.5); Red Blood Count 5.55 M/uL (4.7-6.1); White Blood Count 14.54 K/uL (4.8-10.8)
[2020-09-26 16:08] LABS: INR 1.1 (0.9-1.1); Prothrombin Time 11.3 Seconds (9.0-12.0)
[2020-09-26 16:32] LABS: Alanine Aminotransferase 24 U/L (12-78); Albumin Globulin Ratio 0.9 (0.9-2); Albumin Level 3.3 gm/dl (3.4-5.0); Alkaline Phosphatase 58 U/L (45-117); Aspartate Aminotransferase 13 U/L (15-37); Bilirubin,Total 1.4 mg/dl (0.2-1); Blood Urea Nitrogen 34 mg/dl (7-18); Calcium 9.3 mg/dl (8.5-10.1); Carbon Dioxide 26 mmol/L (21-32); Chloride 102 mmol/L (98-107); Est GFR (African American) 40.9 ml/min; Est GFR (Non-African American) 35.3 ml/min; Globulin 3.6 gm/dl (2.5-4.0); Glucose 208 mg/dl (70-99); Lipase 169 U/L (73-393); Magnesium 2.3 mg/dl (1.8-2.4); Potassium 3.8 mmol/L (3.5-5.1); Sodium 134 mmol/L (136-145); Thyroid Stimulating Hormone 0.821 uIu/ml (0.300-4.500); Total Protein 6.9 gm/dl (6.4-8.2); Troponin I < 0.015 ng/ml (0-0.045)
[2020-09-26 16:44] LABS: Appearance Urine Clear (Clear); Bacteria Urine Automated Negative (Negative); Bilirubin Urine Negative (Negative); Blood Urine Negative (Negative); Color Urine Yellow; Glucose Urine UA 1+ (Negative); Ketones Urine Trace (Negative); Leukocyte Esterase Urine Negative (Negative); Nitrite Urine Negative (Negative); Protein Urine 2+ (Negative); RBC Urine Automated 0-4 /hpf (0-4); Specific Gravity Urine 1.027 (1.000-1.030); Urobilinogen Urine Negative (Negative)
--- NOTE | 2020-09-26 17:35 | CT Scan Report ---
CT SCAN OF THE ABDOMEN AND PELVIS WITHOUT CONTRAST CLINICAL HISTORY: nausea, fatigue COMPARISON STUDY: 03/30/2016 TECHNIQUE: CT scan of the abdomen and pelvis was performed from the lung bases to the proximal femurs . Images are reviewed in the axial, sagittal, and coronal planes. IV contrast was not administered fo r this examination. A dose lowering technique was utilized adhering to the principles of ALARA. CT DOSE: 1313.49 mGy.cm FINDINGS: Lower chest: There is respiratory motion artifact. There are mild basilar atelectatic changes. There are coronary artery calcifications. Liver: The unenhanced liver is normal in size, contour, and attenuation. There is no intrahepatic isabela iary ductal dilatation. Gallbladder: Cholelithiasis Spleen: Normal in size and attenuation. Pancreas: There is a small pancreatic neck calcification. No pancreatic masses are visualized in this noncontrast study. Adrenal glands: Unremarkable. Kidneys: There is bilateral perinephric stranding. There is no hydronephrosis. No renal, ureteral, or bladder calculi are visualized. Bowel: There are no transition zones indicate bowel obstruction. There are no findings to indicate ac ambler appendicitis. There is no evidence of acute diverticulitis. Peritoneum: There is no intraperitoneal free air or abdominal ascites. Is a fat-containing umbilical hernia Vasculature: The abdominal aorta is normal in course and caliber. Adenopathy: None. Pelvic viscera: There is mild prostatomegaly Skeletal structures: There are multilevel degenerative changes within the lumbar spine with multileve l spinal stenosis. There is gynecomastia. IMPRESSION: 1. No evidence of bowel obstruction. No evidence of free air 2. Cholelithiasis 3. No renal, ureteral, or bladder calculi identified 4. No evidence of acute diverticulitis. No evidence of acute appendicitis. ACT 112: Negative or not required by law. Electronically signed by: Trevor Cheney M.D. 09/26/2020 5:33 PM
--- NOTE | 2020-09-26 20:05 | History & Physical Report ---
Date of Service September 26, 2020 Assessment & Plan (1) ICH (intracerebral hemorrhage): Mr. Schmidt is a 75 yo gentleman who recently sustained a R parietal intracerebral hemorrhage on 09/20/20 that was [place] non[place]operatively [place] [facility] who returns for progressive fatigue and nausea while at inpatient rehab. - non-contrast head CT showing no progression of known bleed. Will hold off on further imaging at this time (MRI) but can reconsider if neurological status worsens - 6mg IV decadron ordered given the presence of surrounding vasogenic edema- anticipate increase in blood sugar with IV steroid use - continue to hold ASA - neuro checks per protocol - neuro consult placed - etiology of fatigue and nausea is unclear - suspect system symptoms are secondary to recent brain bleed (based on conversation with Dr. Flores at [facility], this seems to be a common phenomenon in the post-hemorrhage period). Patient is not anemic. TSH with WNL. Patient is not septic. BUN is not markedly elevated. Phenergan ordered prn. Follow (2) Hypertension: - goal sys < 130 given recent intracerebral HTN - continue home medications - PRN Lopressor (for HR > 70) and Hydralazine (for HR < 70) on board (3) Leukocytosis: - WBC elevated to 14 - etiology uncertain: UA not concerning for infection. CXR showed no evidence of consolidation. No diarrhea reported. No evidence of cellulitis on exam. Suspect reactive due to recent nausea/vomiting. - trend CBC (4) Type 2 diabetes mellitus: - continue home basal insulin - glucose checks ACHS - SSI ordered with tight parameters due to IV steroid use - HbA1c 7.5 in 07/2020 - at goal for his age - patient is on an ACEI - he is also on a low intensity statin (tolerability issues with atorvastatin noted in chart; unclear if he has tried crestor) (5) S/P CABG (coronary artery bypass graft): - patient had 3 vessel CAGB in 2004 at [facility] - ASA is for secondary prevention - hold at least until 10/06/20 per [facility] recommendations (6) Chronic kidney disease, stage III (moderate): - baseline Cr 1.6-1.7 - Cr on admission 1.8, BUN at 34, ratio of 19 - suspect pre-renal given hx of recent poor PO intake - continue IVF - recheck BMP in AM DVT ppx: chemo contraindicated in setting of recent brain bleed; SCDs ordered Diet: Carb consistent, hearth healthy Dispo: Med/Surg Code: Full History of Present Illness Primary Care Provider: Saji Arias MD Mr. Schmidt is a 75 yo gentleman who presented to the [facility] ED with ongoing nausea and fatigue. Of note, he presented to [facility] ED on 09/20/2020 with new onset confusion - he was subsequently transferred to [facility] when his non- contrast head CT returned positive for an acute intracranial hemorrhage. This bleed was atraumatic. He was not on any anticoagulation at the time, but was taking a daily baby ASA (for secondary CVD prevention). At [facility], he was admitted to the neuro ICU. Brain MRI showed the known active bleed, but no AVM was visualized. His systolic BPs were exceeding 200s while there, so he was briefly placed on a nicardipine drip. He did have aspirin function testing, which showed he was therapeutic. He was stated on seizure prophylaxis with Keppra, but this was discontinued upon discharge. He was discharged from [facility] on 09/23/20 to [facility] for rehab. He was directed to restart his daily baby ASA on 10/06/20. His reports ongoing nausea (with 1 episode of non-bloody vomitus) and progressive fatigue since he arrived at [facility]. They had been giving him zofran at [facility], which was not helpful. In the ED, he was afebrile, HR was normal, BP was elevated to 169/99. His WBC was elevated to 14. Hgb and platelets were normal. Coags were normal. Na was mildly low at 134. Creatinine elevated to 1.8 (baseline 1.6-1.7). Lactate was not elevated. Trop was undetectable. Lipase not elevated. TSH was normal. UA without suspicion for infection. EKG showing NSR, no ST segment changes, QTc at 474ms. CXR showing no active disease. A/P CT scan showing no acute processes. Noncontrast Head CT showed no significant change in the 4.5cm R parietal hematoma; surrounding vasogenic edema. No hydrocephalus. Suspected trace interventricular blood. The ED provider did speak with Dr. Flores ([facility] neurosurgeon) who did not feel as though a transfer was necessary. No further brain imaging was recommended. He did suggest a trial of steroids. He was given 1 liter of NSS and 1 dose of zofran. Allergies Allergy/AdvReac Type Severity Reaction Status Date / Time atorvastatin AdvReac Intermediate severe Verified 09/26/20 16:56 muscle aches Home Medications Medication Instructions Recorded Confirmed Type meclizine 25 mg tablet 25 mg PO Q6H PRN #30 tab 10/31/18 09/26/20 History vitamin A-vitamin C-vit E-min 1 tab PO QAM 10/31/18 09/26/20 History tablet bumetanide 1 mg tablet 1 mg PO BID #180 tab 11/02/18 09/26/20 Rx insulin glargine 100 unit/mL (3 40 unit SUBCUT HS 90 Days #36 ml 05/09/19 09/26/20 Rx mL) subcutaneous pen calcium carbonate [Tums] 200 mg PO BID PRN 09/04/19 09/26/20 History nitroglycerin 0.4 mg sublingual 0.4 mg SUBLINGUAL Q5M PRN #20 tab 10/24/19 09/26/20 Rx tablet lisinopril 20 mg tablet 30 mg PO QAM #135 tab 11/12/19 09/26/20 Rx metoprolol succinate 100 mg 100 mg PO BID #180 tab 11/12/19 09/26/20 Rx tablet,extended release 24 hr aspirin [Aspirin Low Dose] 81 mg PO QAM 12/12/19 09/26/20 History ezetimibe-simvastatin [Vytorin 1 tab PO HS 12/12/19 09/26/20 History 10-80] blood-glucose meter #1 ea 07/16/20 09/17/20 History flash glucose scanning reader #1 ea 07/16/20 09/17/20 History flash glucose sensor #1 ea 07/16/20 09/17/20 History insulin aspart U-100 100 unit/mL 50 unit SUBCUT DAILY 90 Days #45 ml 07/24/20 09/26/20 Rx (3 mL) subcutaneous pen pen needle, diabetic 32 gauge x #400 ea 07/24/20 09/17/20 Rx " calcitriol 0.5 mcg capsule 0.5 mcg PO DAILY #90 cap 09/09/20 09/26/20 Rx Past Med/Surg History Medical History CAD (coronary artery disease) CABG x2 (2004) Chronic kidney disease, stage III (moderate) baseline creatinine 1.6-1.7 per chart review Diabetes mellitus, type 2 IDDM GERD (gastroesophageal reflux disease) Hearing deficit left ear deafness Hyperlipidemia Hypertension Meniere's disease Secondary hyperparathyroidism Sensorineural hearing loss (SNHL) of left ear with restricted hearing of right ear bilateral hearing aides Sleep apnea CPAP Urinary tract infection hx. no problems recently. Surgical History History of arthroscopy LEFT KNEE History of cardiac cath 2005 @ [facility], no stents History of cataract surgery BILATERAL History of colonoscopy with polypectomy History of coronary artery bypass graft X2 (2004) [facility] History of endoscopic sinus surgery History of esophagogastroduodenoscopy (EGD) History of left knee replacement History of tonsillectomy Family History Mother Family history of diabetes mellitus Myocardial infarction Diabetes Cardiac disorder Hypertension Heart disease Father Myocardial infarction Cardiac disorder Alcohol abuse Brother Myocardial infarction Leukemia Alcohol abuse Other No family history of adverse response to anesthesia Pure hypercholesterolemia Social History Smoking Status: Former smoker Tobacco Type: Cigarettes Second Hand Exposure: No; Do You Dip or Chew Tobacco: No; Hx Alcohol Use: Yes Alcohol type: hard liquor Hx Substance Use: No Preferred Language: Faroese Communication Ability: Effective Visual Impairment: No Limitations Coremaker Floor Required: No Beliefs That Will Affect Care: None marital status: Current Living Situation: Spouse current occupational status: retired Other Information That Helps Us Care for You: No Feels Safe at Home: Yes Safety Concerns: Feels Safe At This Time Dental Care, Regularly: Yes Physical Activity Frequency: Does not Exercise Seatbelt Use: always Sunscreen Use: No Assistive Devices: Glasses and Walker Assistive Devices Comment: partial lower denture Review of Systems Constitutional: + fatigue and + malaise; no fever and no weakness Respiratory: no dyspnea on exertion Cardiovascular: no chest pain Gastrointestinal: + nausea; no abdominal pain and no diarrhea/loose stools Physical Exam Constitutional: WD/WN, vitals as above cooperative; no acute distress Eyes: + anicteric sclerae and PERRL ENMT: external ear and nose normal, oropharynx normal Neck: normal visual inspection and trachea midline Respiratory: normal respiratory effort, lungs clear to auscultation no cough Cardiovascular: RRR, no murmur, no edema Heart Sounds: normal S1 and normal S2 Gastrointestinal (Abdomen): normal bowel sounds, soft, nontender, no hepa tosplenomegaly Skin: no rashes, warm and dry Neurologic: moves all extremities Speech / Cognition: normal speech and no expressive aphasia Motor/Sensory: no sensory deficit Cranial Nerves: PERRL, EOM intact bilaterally, tongue midline, able to rotate head bilaterally, able to elevate shoulders bilaterally and no nystagmus Coordination: + abnormal [id number] test (past-pointing with left hand) + neglect left upper extremity Strength 5/5 with bilateral upper and lower extremities Psychiatric: A+Ox3, euthymic affect Results & Data Results & Data ([facility]) Vital Signs (Past 12 Hours) Vital Signs Temp Pulse Resp BP BP Pulse Ox 09/26/20 19:43 16 140/66 97 09/26/20 19:06 18 164/59 H 96 09/26/20 17:51 37.0 C 18 169/99 H 96 09/26/20 16:04 18 158/86 H 96 09/26/20 16:02 74 18 96 09/26/20 15:25 36.8 C 88 18 158/86 H 96 Supervising Physician Co-Signing Physician Notes Attending addendum: I have physically seen this patient, have supervised the medical residents activities, and agree with the H&P unless as otherwise noted. Assessment and Plan: Intracerebral hemorrhage- Initial hemorrhage on 09/20/2020 Conservative treatment at [facility] Progressive fatigue and nausea, transferred to [facility] from inpatient rehab CT head without acute acute change in bleed Trial of Decadron 6 mg IV to address surrounding edema and attempt to control nausea not relieved by Zofran/Phenergan Neurochecks per protocol Consult neurology Hypertension- Target systolic blood pressure to be less than 130 Continue current regimen, and add as needed Lopressor and/or hydralazine with parameters Remaining orders and notations as noted Resident Activity Tracking Resident Involvement: Resident Care Provided Care Provided: Adult [facility] Medicine (1) ICH (intracerebral hemorrhage) Cerebral hemorrhage location: unspecified cerebral location Intracerebral hemorrhage etiology: nontraumatic Laterality: right Qualified Code(s): I61.9 - Nontraumatic intracerebral hemorrhage, unspecified (2) Hypertension Hypertension type: unspecified Qualified Code(s): I10 - Essential (primary) hypertension
[2020-09-26] MEDS ORDERED: METOPROLOL TARTRATE 1 MG/ML VIAL IV PRN (21:04)
[2020-09-26] MEDS ORDERED: METOPROLOL SUCC 50MG EXT REL TAB PO STA (21:07)
[2020-09-26] MEDS ORDERED: dexAMETHasone 6 MG in SYRINGE 0 ML IV ONE (21:56)
[2020-09-26] MEDS ORDERED: GLUCOSE 40% GEL 15 GM TUBE PO PRN (21:56)
[2020-09-26] MEDS ORDERED: GLUCAGON FOR INJ 1 MG VIAL SQ PRN (21:56)
[2020-09-26] MEDS ORDERED: CARBOHYDRATES FOR HYPOGLYCEMIA PO PRN (21:56)
[2020-09-26] MEDS ORDERED: GLUCOSE 10 TABS/TUBE PO PRN (21:56)
[2020-09-26] MEDS ORDERED: PROMETHAZINE HCL 6.25 MG in SODIUM CHLORIDE 0.9% 50 ML IV PRN (21:56)
[2020-09-26] MEDS ORDERED: POLYETHYLENE (MIRALAX) 17 GM PACK PO PRN (21:56)
[2020-09-26] MEDS ORDERED: DEXTROSE 50% 50 ML SYRINGE IV PRN (21:56)
[2020-09-26] MEDS ORDERED: ACETAMINOPHEN 325 MG TAB PO PRN (21:56)
[2020-09-26] MEDS: SODIUM CHLORIDE 0.9% 1000ML 1,000 ML IV SCH (23:30)
[2020-09-26] MEDS: INSULIN GLARGINE SOLOSTAR 100 UNITS/ML 3 ML PEN SQ SCH (23:31)
[2020-09-26] MEDS: METOPROLOL SUCC 50MG EXT REL TAB PO SCH (23:31)
[2020-09-26] MEDS: INSULIN ASPART 100 UNITS/ML 3 ML PEN SC SCH (23:32)
[2020-09-26] MEDS: BUMETANIDE 1 MG TAB PO SCH (23:32)
[2020-09-26] MEDS: EZETIMIBE 10 MG TABLET PO SCH (23:33)
[2020-09-26] MEDS: SIMVASTATIN 80 MG TAB PO SCH (23:33)
[2020-09-27 06:45] LABS: BUN Creatinine Ratio 20.7 (10-20); Calcium 9.1 mg/dl (8.5-10.1); Creatinine Clr Calc Pharmacy 47.2 ml/min; Est GFR (African American) 43.5 ml/min; Est GFR (Non-African American) 37.5 ml/min
[2020-09-27 06:55] LABS: Hematocrit (blood only) 47.7 % (42-52); Hemoglobin 16.5 g/dL (14.0-18.0); Mean Corpuscular Hemoglobin 30.8 pg (25-34); Mean Corpuscular Hgb Conc 34.6 g/dL (32-36); Mean Corpuscular Volume 89.2 fL (80-100); Mean Platelet Volume 10.7 fL (7.4-10.4); Platelet Count 221 K/uL (130-400); RDW Coefficient of Variation 12.9 % (11.5-14.5); RDW Standard Deviation 42.1 fL (36.4-46.3); Red Blood Count 5.35 M/uL (4.7-6.1); White Blood Count 10.73 K/uL (4.8-10.8)
[2020-09-27 06:56] LABS: Echinocytes 1+; Immature Granulocytes # (auto) 0.03 K/uL (0.00-0.02); Immature Granulocytes % (auto) 0.3 %; Lymphocytes # (auto) 0.55 K/uL (1.2-3.4); Lymphocytes % (auto) 5.1 %; Monocytes # (auto) 0.45 K/uL (0.11-0.59); Monocytes % (auto) 4.2 %; Neutrophils % (auto) 90.4 %
[2020-09-27] MEDS: BUMETANIDE 1 MG TAB PO SCH ×2 (08:31→18:06)
[2020-09-27] MEDS: CALCITRIOL 0.25 MCG CAPSULE PO SCH (08:32)
[2020-09-27] MEDS: lisinopril 10 MG TAB PO SCH (08:32)
[2020-09-27] MEDS: CEROVITE ADV FORMULA TAB PO SCH (08:32)
[2020-09-27] MEDS: METOPROLOL SUCC 50MG EXT REL TAB PO SCH ×2 (08:32→20:14)
[2020-09-27] MEDS: INSULIN ASPART 100 UNITS/ML 3 ML PEN SC SCH ×4 (09:25→20:50)
--- NOTE | 2020-09-27 10:47 | Neurology Consultation ---
Date of Consultation September 27, 2020 Assessment & Plan (1) ICH (intracerebral hemorrhage): Stable 4.5 cm right parietal intraparenchymal hematoma with surrounding white matter edema, trace intraventricular blood, stable 1 mm right to left midline shift. Patient's dizziness, nausea and vomiting have resolved. He does have an element of left hemineglect and extinguishes to double simultaneous stimulation on the left. He has mild sensorimotor neglect to the left side as well which I suspect will have some negative impact on managing ADLs. He has not had any seizures and I do not think an anticonvulsant is necessary at this time. There is no evidence of underlying AVM on MRI done at [facility]. Neoplasm or metastatic lesion may not be completely excluded. The moderately sized right parietal intraparenchymal lobar type hemorrhage does have characteristics that could suggest underlying amyloid angiopathy. Hemorrhage related to falls or hypertension not completely excluded. Patient should have additional outpatient follow-up imaging completed. It looks like there are plans for a follow-up neurosurgical evaluation at [facility] in about 2 months. It was also suggested that patient could restart aspirin 81 mg/day on October 06. Would continue to hold aspirin at this time. If patient remains clinically stable it would be reasonable to restart his daily low-dose aspirin on October 06 as suggested. As patient is feeling much improved with dexamethasone and Phenergan, I think it would be reasonable to continue with these treatments. Would recommend dexamethasone 4 mg p.o. daily for the time being, if symptoms remain stable may taper off over the next few days. Of course patient's blood sugars will need to be monitored given his history of diabetes mellitus. Phenergan can be given as a p.o. as needed formulation. Patient may follow-up with me or Maggie Ruth PA-C, in neurology clinic in 3 to 4 weeks after discharge. Of course, his care will also need to be coordinated with neurosurgery at [facility] as above. History of Present Illness Reason for Consultation: Recent intracerebral hemorrhage Requesting Physician: Marla Andrews MD Attending Physician: Juan David Browning MD History of Present Illness The patient is a 75-year-old male who had presented to the [facility] emergency department on September 20, 1 week ago, complaining of dizziness, confusion and multiple falls. Symptoms began several days prior. He was notably hypertensive and a CT of the head at that time revealed a fairly large, 4.5 cm right parietal intraparenchymal hematoma. Underlying mass or amyloid angiopathy was considered in the differential. He was urgently transferred to [facility] for further evaluation and management at that time. Neurosurgical discharge summary report was reviewed. He did not require surgical intervention. He had been placed on prophylactic Keppra although this medication was discontinued upon discharge. An MR I/a of the brain revealed no underlying AVM. He was discharged to [facility] 2 days later. The patient presented again to the [facility] emergency department yesterday, transferred from [facility], for further evaluation of refractory nausea and vomiting. A follow-up CT of the head completed at that time revealed no significant change in the previously identified 4.5 cm right parietal intraparenchymal hematoma with surrounding white matter edema. There was evidence of trace intraventricular blood as well. No hydrocephalus. There is mild mass-effect along the right lateral ventricle and stable 1 mm right to left midline shift. Patient also has moderately extensive small vessel ischemic disease. I reviewed the images as well as the radiologist's interpretation of these tests and agree. Looks like the admitting physician had discussed his case with neurosurgery at [facility]. A transfer was not considered necessary as patient is neurologically stable with stable neuro imaging. He was treated with 6 mg of IV Decadron and has an order for promethazine IV as needed. This morning, patient indicates that his nausea and vomiting are resolved. He denies dizziness, headache, vision change, or focal weakness. Allergies Allergy/AdvReac Type Severity Reaction Status Date / Time atorvastatin AdvReac Intermediate severe Verified 09/26/20 16:56 muscle aches Home Medications Medication Instructions Recorded Confirmed Type meclizine 25 mg tablet 25 mg PO Q6H PRN #30 tab 10/31/18 09/26/20 History vitamin A-vitamin C-vit E-min 1 tab PO QAM 10/31/18 09/26/20 History tablet bumetanide 1 mg tablet 1 mg PO BID #180 tab 11/02/18 09/26/20 Rx insulin glargine 100 unit/mL (3 40 unit SUBCUT HS 90 Days #36 ml 05/09/19 09/26/20 Rx mL) subcutaneous pen calcium carbonate [Tums] 200 mg PO BID PRN 09/04/19 09/26/20 History nitroglycerin 0.4 mg sublingual 0.4 mg SUBLINGUAL Q5M PRN #20 tab 10/24/19 09/26/20 Rx tablet lisinopril 20 mg tablet 30 mg PO QAM #135 tab 11/12/19 09/26/20 Rx metoprolol succinate 100 mg 100 mg PO BID #180 tab 11/12/19 09/26/20 Rx tablet,extended release 24 hr aspirin [Aspirin Low Dose] 81 mg PO QAM 12/12/19 09/26/20 History ezetimibe-simvastatin [Vytorin 1 tab PO HS 12/12/19 09/26/20 History 10-80] blood-glucose meter #1 ea 07/16/20 09/17/20 History flash glucose scanning reader #1 ea 07/16/20 09/17/20 History flash glucose sensor #1 ea 07/16/20 09/17/20 History insulin aspart U-100 100 unit/mL 50 unit SUBCUT DAILY 90 Days #45 ml 07/24/20 09/26/20 Rx (3 mL) subcutaneous pen pen needle, diabetic 32 gauge x #400 ea 07/24/20 09/17/20 Rx " calcitriol 0.5 mcg capsule 0.5 mcg PO DAILY #90 cap 09/09/20 09/26/20 Rx Patient History Medical History CAD (coronary artery disease) CABG x2 (2004) Chronic kidney disease, stage III (moderate) baseline creatinine 1.6-1.7 per chart review Diabetes mellitus, type 2 IDDM GERD (gastroesophageal reflux disease) Hearing deficit left ear deafness Hyperlipidemia Hypertension Meniere's disease Secondary hyperparathyroidism Sensorineural hearing loss (SNHL) of left ear with restricted hearing of right ear bilateral hearing aides Sleep apnea CPAP Urinary tract infection hx. no problems recently. Surgical History History of arthroscopy LEFT KNEE [place] [facility] [place] st[place] History of cataract surgery BILATERAL History of colonoscopy with polypectomy History of coronary artery bypass graft X2 (2004) [facility] History of endoscopic sinus surgery History of esophagogastroduodenoscopy (EGD) History of left knee replacement History of tonsillectomy Family History Mother Family history of diabetes mellitus Myocardial infarction Diabetes Cardiac disorder Hypertension Heart disease Father Myocardial infarction Cardiac disorder Alcohol abuse Brother Myocardial infarction Leukemia Alcohol abuse Other No family history of adverse response to anesthesia Pure hypercholesterolemia Social History Smoking Status: Former smoker Tobacco Type: Cigarettes Second Hand Exposure: No; Do You Dip or Chew Tobacco: No; Hx Alcohol Use: Yes Alcohol type: hard liquor Hx Substance Use: No Preferred Language: Citizen Of [place] Communication Ability: Effective Visual Impairment: No Limitations Certified Tower Climber Required: No Beliefs That Will Affect Care: None marital status: Current Living Situation: Spouse current occupational status: retired Other Information That Helps Us Care for You: No Feels Safe at Home: Yes Safety Concerns: Feels Safe At This Time Dental Care, Regularly: Yes Physical Activity Frequency: Does not Exercise Seatbelt Use: always Sunscreen Use: No Assistive Devices: Glasses and Walker Assistive Devices Comment: partial lower denture Review of Systems Constitutional: + fatigue Eyes: no blind spots and no diplopia Ear, Nose, Mouth, Throat: no hearing loss Respiratory: no cough and no dyspnea Cardiovascular: no chest pain and no palpitations Gastrointestinal: as per Subjective / HPI, + nausea and + vomiting Genitourinary: no dysuria Musculoskeletal: no myalgia Integumentary: no rash and no lesions Neurologic: as per Subjective / HPI and + dizziness; no localized weakness, no tremor(s) and no headache(s) Psychiatric: no depression and no anxiety Hematologic / Lymphatic: no easy bleeding and no easy bruising Exam (Neuro) Constitutional: well developed and well nourished; no acute distress Eyes: normal visual markham by confrontation, PERRL, normal accommodation and EOM intact bilaterally; no fundoscopic abnormality, no nystagmus and no papilledema Cardiovascular: Vessels: normal carotid upstroke; no carotid bruit Neurologic: Oriented to:: Person, Place and Time Memory: Short Term Intact and Remote Intact Attention: Span Intact and Concentration Intact Language: Naming Objects and Repeating Phrases Speech Fluency: negative Dysarthria Speech Aphasia: negative Aphasia Fund of Knowledge: Current Events, Past History and Vocabulary Cranial Nerves: Normal II (Visual markham full to confrontation, visual acuity normal), III, IV, (Pupils equal round reactive to light and accommodation, eye movements normal), V (Facial sensation intact), VII (There is no facial droop or weakness), VIII (Hearing intact), IX, X (Palate elevates to midline), XI (Shoulder shrug intact) and XII (Tongue protrudes to midline) Motor Strength: Normal Lower Extremities and Normal Upper Extremities; negative Pronator Drift Motor Tone: Normal Lower Extremities and Normal Upper Extremities Muscle Bulk/Involuntary Movements: No Involuntary Movements; negative Muscle Atrophy Sensation: Light Touch Intact, Pain/Temperature Intact, Vibration Intact and Proprioception Intact Coordination: Normal; negative Limited Balance, Dysdiadochokinesia, Finger-Nose Abnormal and Heel-Rao Abnormal Deep Tendon Reflexes: Rt Triceps: 2+, Lt Tri ceps: 2+, Rt Biceps: 2+, Lt Biceps: 2+, Rt Brachioradialis: 2+, Lt Brachioradialis: 2+, Rt Patellar: 2+, Lt Patellar: 2+, Rt Ankle: 1+ and Lt Ankle: 1+ Special Tests: negative Babinski Present Details: Gait cannot be tested in context of patient's current neurological status. Patient does have an element of left hemineglect on examination and consistently neglects to double simultaneous stimulation for the left arm and leg. He has some subtle difficulty with exragi-kc-heep on the left as well which is likely due to an element of sensorimotor neglect. Results & Data ([facility]) Vital Signs (Past 12 Hours) Vital Signs Temp Pulse Pulse Resp BP Pulse Ox 09/27/20 07:30 36.7 C 69 16 148/80 H 96 09/27/20 02:15 62 138/66 Laboratory Results WBC 10.73, hemoglobin 16.5, hematocrit 47.7, platelet count 221, sodium 136, potassium 4.0, BUN 36, creatinine 1.72, glucose 240, hemoglobin A1c 7.5, AST 13, ALT 24, total CK 242, troponin less than 0.[address] of the head completed September 20 and September 26 are as described in the history of present illness. I reviewed the images as well as the radiologist's interpretation of these tests. Electrocardiogram reveals a sinus rhythm with premature atrial complexes, left anterior fascicular block, 69 bpm. Coding Level of Care Code 55845 Initial In Care Lvl 3 Diagnoses ICH (intracerebral hemorrhage) I61.9 Cerebral hemorrhage location: unspecified cerebral location Intracerebral hemorrhage etiology: nontraumatic Laterality: right (1) ICH (intracerebral hemorrhage) Cerebral hemorrhage location: unspecified cerebral location Intracerebral hemorrhage etiology: nontraumatic Laterality: right Qualified Code(s): I61.9 - Nontraumatic intracerebral hemorrhage, unspecified
[2020-09-27] MEDS: SODIUM CHLORIDE 0.9% 1000ML 1,000 ML IV SCH ×2 (10:48→20:18)
--- NOTE | 2020-09-27 11:24 | Hospitalist Progress Note ---
Date of Service September 27, 2020 Assessment & Plan (1) ICH (intracerebral hemorrhage): Right parietal ICH on 09/20/20. Treated non-operatively at [facility]. Admitted for n/v. This has resolved. ASA on hold. Phenergan PRN for n/v. Hx of GERD. Will add pantroprazole daily. Appreciate neurology consult. Recommend dexamethasone 4mg PO daily for the time being. Taper over the next few days if symptoms remains stable. Monitor glucose while on dexamethasone. Resume ASA October 06 per previous [facility] recommendations if patient remains clinically stable. (2) Hypertension: Goal is systolic <130 given recent ICH. Elevated at 148/80 this morning. - continue home medications - PRN Lopressor (for HR > 70) and Hydralazine (for HR < 70) on board. (3) Leukocytosis: Normalized to 10.73 today. (4) Type 2 diabetes mellitus: - continue home basal insulin - glucose checks ACHS - SSI ordered with tight parameters due to IV steroid use. Glucose has been over 200 since admission. Continue to monitor. May need pharmacy glycemic management if difficulty with control. Taper dexamethasone when clinically stable. - HbA1c 7.5 in 07/2020 - at goal for his age - patient is on an ACEI - he is also on a low intensity statin (tolerability issues with atorvastatin noted in chart; unclear if he has tried crestor) - carb consistent, heart healthy diet (5) S/P CABG (coronary artery bypass graft): - patient had 3 vessel CABG in 2004 at [facility] - ASA is for secondary prevention - hold at least until 10/06/20 per [facility] recommendations (6) Chronic kidney disease, stage III (moderate): - baseline Cr 1.6-1.7 - Cr on admission 1.8, BUN at 34, ratio of 19--> Cr improved to 1.72 this AM. - suspect pre-renal given hx of recent poor PO intake - continue IVF - recheck BMP in AM (7) DVT prophylaxis: Chemical prophylaxis contraindicated in the setting of recent ICH. SCDs Admission and Anticipated Discharge Date Admission Date: September 26, 2020 Subjective 75 year old male admitted with n/v and fatigue s/p ICH. Patient reports he is feeling much better today. Nausea and vomiting have resolved. He was able to eat toast and coffee for breakfast without issues. No other complaints today. Review of Systems Constitutional: no fever and no chills Eyes: no worsening vision Ear, Nose, Mouth, Throat: no dizziness Respiratory: no dyspnea Cardiovascular: no chest pain Gastrointestinal: no abdominal pain, no nausea and no vomiting Psychiatric: no confusion Physical Exam Constitutional: + obese; no acute distress ENMT: Ears: no hearing impairment Neck: trachea midline, no thyromegaly Respiratory: normal respiratory effort, lungs clear to auscultation Cardiovascular: RRR, no murmur, no edema Gastrointestinal (Abdomen): Inspection/Auscultation: normal bowel sounds Percussion/Palpation: abdomen soft; abdomen nontender Neurologic: awake; not confused Speech / Cognition: normal speech Lymphatic: no cervical or axillary lymphadenopathy Results & Data Results & Data ([facility]) Vital Signs (Past 12 Hours) Vital Signs Temp Pulse Pulse Resp BP Pulse Ox 09/27/20 07:30 36.7 C 69 16 148/80 H 96 09/27/20 02:15 62 138/66 PG Care Time/CCT Total # of Minutes Spent Total Time Spent with Patient: Total time spent is greater than 50% in coordination of care (as documented) at patient's floor/unit and/or counseling patient: Coding Level of Care Code 40367 Subseq Obs Care Lvl 2 Exam Expanded Problem Focused Medical Decision Making Moderate Complexity Diagnoses ICH (intracerebral hemorrhage) I61.9 Cerebral hemorrhage location: unspecified cerebral location Intracerebral hemorrhage etiology: nontraumatic Laterality: right Hypertension I10 Leukocytosis D72.829 Type 2 diabetes mellitus E11.9 S/P CABG (coronary artery bypass graft) Z95.1 Chronic kidney disease, stage III (moderate) N18.3 DVT prophylaxis Z29.9 (1) ICH (intracerebral hemorrhage) Cerebral hemorrhage location: unspecified cerebral location Intracerebral hemorrhage etiology: nontraumatic Laterality: right Qualified Code(s): I61.9 - Nontraumatic intracerebral hemorrhage, unspecified
[2020-09-27] MEDS: dexAMETHasone 4 MG TAB PO SCH (12:37)
[2020-09-27] MEDS: PANTOprazole 40 MG TAB PO SCH (13:22)
[2020-09-27] MEDS: EZETIMIBE 10 MG TABLET PO SCH (20:14)
[2020-09-27] MEDS: SIMVASTATIN 80 MG TAB PO SCH (20:14)
[2020-09-27] MEDS: INSULIN GLARGINE SOLOSTAR 100 UNITS/ML 3 ML PEN SQ SCH (20:51)
--- NOTE | 2020-09-27 21:13 | Billing Data ---
Date of Service September 27, 2020 Coding Level of Care Code 58975 OBS Care - Level 3
[2020-09-27] MEDS: hydrALAZINE HCL 20 MG/ML VIAL IV PRN (22:03)
[2020-09-28] MEDS: SODIUM CHLORIDE 0.9% 1000ML 1,000 ML IV SCH ×2 (04:44→15:41)
[2020-09-28 08:29] LABS: BUN Creatinine Ratio 19.4 (10-20); Calcium 9.2 mg/dl (8.5-10.1); Creatinine Clr Calc Pharmacy 52.1 ml/min; Est GFR (African American) 48.9 ml/min; Est GFR (Non-African American) 42.2 ml/min; Potassium 3.2 mmol/L (3.5-5.1)
--- NOTE | 2020-09-28 08:46 | Neurology Progress Note ---
Date of Service September 28, 2020 Assessment & Plan (1) ICH (intracerebral hemorrhage): (2) Nausea: (3) Hypertension: (4) Sensorineural hearing loss (SNHL) of left ear with restricted hearing of right ear: Patient has a history of a right parietal intercerebral hemorrhage September 20, evaluated at [facility] and then sent to [facility]. It was determined at [facility] that this hemorrhage was likely a hypertensive bleed and not related to an AVM or aneurysm rupture. I believe the intercerebral hemorrhage is the same to slightly better now, compared to September 20. The hemorrhage has some spread intraventricular early and along the tentorium. He was admitted with significant nausea and vomiting. This had resolved but this morning he is nauseated again. intraventricular and subarachnoid hemorrhage can lead to nausea. He has no headache. He has had no seizures and I see no focal deficits on examination today. Dr. Ashby found left kim-neglect on his exam. Patient has hypertension which is improved and stable. Recommendations: 1. continue with promethazine or ondansetron as needed for nausea. 2. follow-up CT in 1-2 weeks depending on his clinical course to check for resolution 3. Increase activity as able. 4. Taper dexamethasone over the next several days. 5. Control blood pressure as you are doing, aiming for a mean arterial pressure of 95 to 100. overall, I spent a total 35 minutes with this case including review of records, review of CT films, direct evaluation patient bedside, and discussing the case with the patient at bedside, RN at bedside, and Dr. Khan, including differential diagnosis and treatment options. Admission and Anticipated Discharge Date Admission Date: September 26, 2020 Subjective The patient was doing fairly well with nausea but this morning about 30 minutes before I came into the room he started getting nausea again. He feels as if he might throw up but has not. The nausea was much better overnight and after admission. Patient's blood pressure is 152/74 and he is afebrile. Patient denies headache, vision blurriness or diplopia, lightheadedness or vertigo, or weakness or numbness in the limbs. Recent labs reveal a normal CBC, normal calcium and a Chem profile remarkable for a very mild elevated BUN and creatinine and mildly low potassium. CT scan of the head September 26 showed the right parietal intercerebral hemorrhage that was about the same as September 20 ( although I think there is a little less extent and swelling than before). Results & Data ([facility]) Vital Signs (Past 12 Hours) Vital Signs Temp Pulse Pulse Pulse Resp BP Pulse Ox 09/28/20 07:40 36.6 C 60 16 152/74 H 95 09/27/20 23:28 65 130/68 09/27/20 22:00 36.8 C 62 20 176/89 H 93 Exam (Neuro) Physical Exam: He is awake and alert. Speech is without aphasia or dysarthria. Mood is normal and affect is appropriate. Thought processes are intact conversation lower wonder if he is a little hard of hearing. Coordination is normal in the arms without tremor or ataxia. Strength is 5/5 diffusely the arms and legs both proximally and distally. PG Care Time/CCT Total # of Minutes Spent Total Time Spent with Patient: Total time spent is greater than 50% in coordination of care (as documented) at patient's floor/unit and/or counseling patient: Coding Level of Care Code 23821 Subseq Hosp Care Lvl 3 Diagnoses ICH (intracerebral hemorrhage) I61.9 Cerebral hemorrhage location: unspecified cerebral location Intracerebral hemorrhage etiology: nontraumatic Laterality: right Nausea R11.0 Hypertension I10 Sensorineural hearing loss (SNHL) of left ear with restricted hearing of right ear H90.A22 Time Spent (min) 35 (1) ICH (intracerebral hemorrhage) Cerebral hemorrhage location: unspecified cerebral location Intracerebral hemorrhage etiology: nontraumatic Laterality: right Qualified Code(s): I61.9 - Nontraumatic intracerebral hemorrhage, unspecified
[2020-09-28] MEDS: INSULIN ASPART 100 UNITS/ML 3 ML PEN SC SCH ×4 (09:29→21:21)
[2020-09-28] MEDS: BUMETANIDE 1 MG TAB PO SCH ×2 (09:44→18:19)
[2020-09-28] MEDS: CALCITRIOL 0.25 MCG CAPSULE PO SCH (09:45)
[2020-09-28] MEDS: dexAMETHasone 4 MG TAB PO SCH (09:45)
[2020-09-28] MEDS: lisinopril 10 MG TAB PO SCH (09:45)
[2020-09-28] MEDS: METOPROLOL SUCC 50MG EXT REL TAB PO SCH ×2 (09:46→21:19)
[2020-09-28] MEDS: PANTOprazole 40 MG TAB PO SCH (09:46)
[2020-09-28] MEDS: CEROVITE ADV FORMULA TAB PO SCH (09:46)
[2020-09-28] MEDS ORDERED: ONDANSETRON INJ 2 MG/ML 2 ML VIAL IV PRN (12:40)
--- NOTE | 2020-09-28 13:41 | Electrocardiogram Report ---
Test Reason : Blood Pressure : / mmHG Vent. Rate : 091 BPM Atrial Rate : 091 BPM P-R Int : 182 ms QRS Dur : 094 ms QT Int : 386 ms P-R-T Axes : 049 -71 033 degrees QTc Int : 474 ms Normal sinus rhythm Left anterior fascicular block Abnormal ECG When compared with ECG of 20-SEP-2020 12:09, No significant change was found Confirmed by Surjit Copeland ([id number]) on 09/28/2020 1:41:28 PM Referred By: [facility] Confirmed By:Surjit Copeland
[2020-09-28] MEDS: POTASSIUM CHLORIDE / WTR 10 MEQ/100 ML PLCT IV SCH ×3 (15:03→17:09)
[2020-09-28] MEDS: EZETIMIBE 10 MG TABLET PO SCH (21:19)
[2020-09-28] MEDS: SIMVASTATIN 80 MG TAB PO SCH (21:19)
[2020-09-28] MEDS: POTASSIUM CHLORIDE CRTAB 20 MEQ TABCR PO SCH (21:20)
[2020-09-28] MEDS: INSULIN GLARGINE SOLOSTAR 100 UNITS/ML 3 ML PEN SQ SCH (21:22)
--- NOTE | 2020-09-28 21:52 | Hospitalist Progress Note ---
Date of Service September 28, 2020 Assessment & Plan (1) ICH (intracerebral hemorrhage): Right parietal ICH on 09/20/20. Treated non-operatively at [facility]. Admitted for n/v. This has resolved. ASA on hold. Phenergan PRN for n/v. Hx of GERD. Will add pantroprazole daily. Appreciate neurology consult. Recommend dexamethasone 4mg PO daily for the time being. Taper over the next few days if symptoms remains stable. Monitor glucose while on dexamethasone. Resume ASA October 06 per previous [facility] recommendations if patient remains clinically stable. Patient continues to have nausea. will add zofran to phenergan. (2) Hypertension: Goal is systolic <130 given recent ICH. Elevated at 148/80 this morning. - continue home medications - PRN Lopressor (for HR > 70) and Hydralazine (for HR < 70) on board (3) Leukocytosis: Normalized to 10.73 today. (4) Type 2 diabetes mellitus: - continue home basal insulin - glucose checks ACHS - SSI ordered with tight parameters due to IV steroid use. Glucose has been over 200 since admission. Continue to monitor. May need pharmacy glycemic management if difficulty with control. Taper dexamethasone when clinically stable. - HbA1c 7.5 in 07/2020 - at goal for his age - patient is on an ACEI - he is also on a low intensity statin (tolerability issues with atorvastatin noted in chart; unclear if he has tried crestor) - carb consistent, heart healthy diet (5) S/P CABG (coronary artery bypass graft): - patient had 3 vessel CABG in 2004 at [facility] - ASA is for secondary prevention - hold at least until 10/06/20 per [facility] recommendations (6) Chronic kidney disease, stage III (moderate): - baseline Cr 1.6-1.7 - Cr on admission 1.8, BUN at 34, ratio of 19--> Cr improved to 1.72 this AM. - suspect pre-renal given hx of recent poor PO intake - continue IVF - improved to 1.56 (7) DVT prophylaxis: Chemical prophylaxis contraindicated in the setting of recent ICH. [facility] Admission and Anticipated Discharge Date Admission Date: September 28, 2020 Subjective Patient was very nauseous today. In the afternoon, he was feeling better and tolerating Isa Aler and gram crackers. was at bedside and updated. Review of Systems Review of Systems: All systems reviewed & are unremarkable except as noted in HPI & below Physical Exam Physical Exam: Constitutional: + obese; no acute distress ENMT: Ears: no hearing impairment Neck: trachea midline, no thyromegaly Respiratory: normal respiratory effort, lungs clear to auscultation Cardiovascular: RRR, no murmur, no edema Gastrointestinal (Abdomen): Inspection/Auscultation: normal bowel sounds Percussion/Palpation: abdomen soft; abdomen nontender Neurologic: awake; not confused Speech / Cognition: normal speech Lymphatic: no cervical or axillary lymphadenopathy Results & Data Results & Data ([facility]) Vital Signs (Past 12 Hours) Vital Signs Temp Pulse Pulse Resp BP BP Pulse Ox 09/28/20 21:18 69 128/53 L 09/28/20 19:21 73 112/66 09/28/20 14:55 36.7 C 79 19 161/79 H 98 PG Care Time/CCT Total # of Minutes Spent Total Time Spent with Patient: Total time spent is greater than 50% in coordination of care (as documented) at patient's floor/unit and/or counseling patient: Coding Level of Care Code 25795 Subseq Hosp Care Lvl 3 Diagnoses ICH (intracerebral hemorrhage) I61.9 Cerebral hemorrhage location: unspecified cerebral location Intracerebral hemorrhage etiology: nontraumatic Laterality: right Hypertension I10 Leukocytosis D72.829 Type 2 diabetes mellitus E11.9 S/P CABG (coronary artery bypass graft) Z95.1 Chronic kidney disease, stage III (moderate) N18.3 DVT prophylaxis Z29.9 Time Spent (min) 35 (1) ICH (intracerebral hemorrhage) Cerebral hemorrhage location: unspecified cerebral location Intracerebral hemorrhage etiology: nontraumatic Laterality: right Qualified Code(s): I61.9 - Nontraumatic intracerebral hemorrhage, unspecified
[2020-09-29] MEDS: SODIUM CHLORIDE 0.9% 1000ML 1,000 ML IV SCH ×3 (00:21→22:13)
[2020-09-29 07:58] LABS: BUN Creatinine Ratio 18.2 (10-20); Calcium 8.5 mg/dl (8.5-10.1); Creatinine Clr Calc Pharmacy 49.8 ml/min; Est GFR (African American) 46.4 ml/min; Potassium 3.4 mmol/L (3.5-5.1)
[2020-09-29] MEDS: dexAMETHasone 4 MG TAB PO SCH (09:11)
[2020-09-29] MEDS: CEROVITE ADV FORMULA TAB PO SCH (09:11)
[2020-09-29] MEDS: POTASSIUM CHLORIDE CRTAB 20 MEQ TABCR PO SCH ×2 (09:11→13:06)
[2020-09-29] MEDS: PANTOprazole 40 MG TAB PO SCH (09:11)
[2020-09-29] MEDS: CALCITRIOL 0.25 MCG CAPSULE PO SCH (09:12)
[2020-09-29] MEDS: BUMETANIDE 1 MG TAB PO SCH ×2 (09:12→17:48)
[2020-09-29] MEDS: METOPROLOL SUCC 50MG EXT REL TAB PO SCH ×2 (09:12→20:06)
[2020-09-29] MEDS: lisinopril 10 MG TAB PO SCH (09:12)
[2020-09-29] MEDS: INSULIN ASPART 100 UNITS/ML 3 ML PEN SC SCH ×4 (09:17→21:05)
--- NOTE | 2020-09-29 11:02 | Electrocardiogram Report ---
Test Reason : Blood Pressure : / mmHG Vent. Rate : 069 BPM Atrial Rate : 069 BPM P-R Int : 196 ms QRS Dur : 100 ms QT Int : 418 ms P-R-T Axes : 039 -49 -38 degrees QTc Int : 447 ms Sinus rhythm with Premature atrial complexes Left anterior fascicular block T wave abnormality, consider anterolateral ischemia Abnormal ECG When compared with ECG of 26-SEP-2020 15:30, (unconfirmed) Premature atrial complexes are now Present Nonspecific T wave abnormality now evident in Inferior leads T wave inversion now evident in Anterolateral leads Confirmed by Surjit Copeland ([id number]) on 09/29/2020 11:01:45 AM Referred By: [facility] Confirmed By:Surjit Copeland
[2020-09-29] MEDS: EZETIMIBE 10 MG TABLET PO SCH (20:07)
[2020-09-29] MEDS: SIMVASTATIN 80 MG TAB PO SCH (20:07)
[2020-09-29] MEDS: hydrALAZINE HCL 20 MG/ML VIAL IV PRN (20:15)
[2020-09-29] MEDS: INSULIN GLARGINE SOLOSTAR 100 UNITS/ML 3 ML PEN SQ SCH (21:12)
--- NOTE | 2020-09-29 22:01 | Hospitalist Progress Note ---
Date of Service September 29, 2020 Assessment & Plan (1) ICH (intracerebral hemorrhage): Right parietal ICH on 09/20/20. Treated non-operatively at [facility]. Admitted for n/v. This has resolved. ASA on hold. Phenergan PRN for n/v. Hx of GERD. Will add pantoprazole daily. Appreciate neurology consult. Recommend dexamethasone 4mg PO daily for the time being. Taper over the next few days if symptoms remains stable. Monitor glucose while on dexamethasone. Resume ASA October 06 per previous [facility] recommendations if patient remains clinically stable. Patient continues to have nausea. will add zofran to phenergan. Patient appears to be improving today. will continue. Awaiting for placement for discharge. (2) Hypertension: Goal is systolic <130 given recent ICH. Elevated at 148/80 this morning. - continue home medications - PRN Lopressor (for HR > 70) and Hydralazine (for HR < 70) on board (3) Leukocytosis: Normalized to 10.73 today. (4) Type 2 diabetes mellitus: - continue home basal insulin - glucose checks ACHS - SSI ordered with tight parameters due to IV steroid use. Glucose has been over 200 since admission. Continue to monitor. May need pharmacy glycemic management if difficulty with control. Taper dexamethasone when clinically stable. - HbA1c 7.5 in 07/2020 - at goal for his age - patient is on an ACEI - he is also on a low intensity statin (tolerability issues with atorvastatin noted in chart; unclear if he has tried crestor) - carb consistent, heart healthy diet (5) S/P CABG (coronary artery bypass graft): - patient had 3 vessel CABG in 2004 at [facility] - ASA is for secondary prevention - hold at least until 10/06/20 per [facility] recommendations (6) Chronic kidney disease, stage III (moderate): - baseline Cr 1.6-1.7 - Cr on admission 1.8, BUN at 34, ratio of 19--> Cr improved to 1.72 this AM. - suspect pre-renal given hx of recent poor PO intake - continue IVF - improved to 1.56 (7) DVT prophylaxis: Chemical prophylaxis contraindicated in the setting of recent [facility]CH. [facility] and Anticipated Discharge Date Admission Date: September 28, 2020 Subjective Patient is awake and less nauseaous. Review of Systems Review of Systems: All systems reviewed & are unremarkable except as noted in HPI & below Physical Exam Physical Exam: Constitutional: + obese; no acute distress ENMT: Ears: no hearing impairment Neck: trachea midline, no thyromegaly Respiratory: normal respiratory effort, lungs clear to auscultation Cardiovascular: RRR, no murmur, no edema Gastrointestinal (Abdomen): Inspection/Auscultation: normal bowel sounds Percussion/Palpation: abdomen soft; abdomen nontender Neurologic: awake; not confused Speech / Cognition: normal speech Lymphatic: no cervical or axillary lymphadenopathy Results & Data Results & Data ([facility]) Vital Signs (Past 12 Hours) Vital Signs Temp Pulse Resp BP BP Pulse Ox 09/29/20 20:09 68 178/72 H 09/29/20 15:04 36.7 C 66 20 105/61 96 PG Care Time/CCT Total # of Minutes Spent Total Time Spent with Patient: Total time spent is greater than 50% in coordination of care (as documented) at patient's floor/unit and/or counseling patient: Coding Level of Care Code 40006 Subseq Hosp Care Lvl 2 Diagnoses ICH (intracerebral hemorrhage) I61.9 Cerebral hemorrhage location: unspecified cerebral location Intracerebral hemorrhage etiology: nontraumatic Laterality: right Hypertension I10 Leukocytosis D72.829 Type 2 diabetes mellitus E11.9 S/P CABG (coronary artery bypass graft) Z95.1 Chronic kidney disease, stage III (moderate) N18.3 DVT prophylaxis Z29.9 Time Spent (min) 25 (1) ICH (intracerebral hemorrhage) Cerebral hemorrhage location: unspecified cerebral location Intracerebral hemorrhage etiology: nontraumatic Laterality: right Qualified Code(s): I61.9 - Nontraumatic intracerebral hemorrhage, unspecified
[2020-09-29] MEDS ORDERED: METOPROLOL TARTRATE 25 MG TAB PO STA (23:55)
[2020-09-30] MEDS: hydrALAZINE HCL 20 MG/ML VIAL IV PRN (04:15)
[2020-09-30] MEDS: METOPROLOL SUCC 50MG EXT REL TAB PO SCH (08:37)
[2020-09-30] MEDS: BUMETANIDE 1 MG TAB PO SCH ×2 (08:37→16:52)
[2020-09-30] MEDS: PANTOprazole 40 MG TAB PO SCH (08:38)
[2020-09-30] MEDS: CEROVITE ADV FORMULA TAB PO SCH (08:38)
[2020-09-30] MEDS: lisinopril 10 MG TAB PO SCH (08:38)
[2020-09-30] MEDS: CALCITRIOL 0.25 MCG CAPSULE PO SCH (08:38)
[2020-09-30] MEDS: dexAMETHasone 4 MG TAB PO SCH (08:38)
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
[2020-09-30] MEDS: INSULIN ASPART 100 UNITS/ML 3 ML PEN SC SCH ×3 (09:56→16:52)
--- NOTE | 2020-09-30 11:34 | CT Scan Report ---
CT OF THE HEAD WITHOUT CONTRAST CLINICAL HISTORY: Hematoma. COMPARISON STUDY: Head CT September 26, 2020. CT DOSE: 569.73 mGy.cm TECHNIQUE: Helical axial images of the head were obtained without IV contrast. Automated exposure con trol was utilized for the study. A dose lowering technique was utilized adhering to the principles o f ALARA. FINDINGS: The previously described right parietal lobe intraparenchymal hematoma has slightly decreas ed in size since head CT of September 26, 2020. This now measures 4 cm. Adjacent edema is again noted. Sul jignesh effacement with mass effect upon the right adjacent right lateral ventricle is again noted. Intra ventricular hemorrhage shown on prior exam has resolved. There is no evidence for hydrocephalus. Basa l cisterns are patent. No new sites of hemorrhage are present. White matter hypodensity suggests smal l vessel disease. Suspected old lacunar infarct within the right cerebellar hemisphere is unchanged. No calvarial fracture. IMPRESSION: Slight decrease in size of the right parietal intraparenchymal hematoma since prior exam . Mild associated vasogenic edema and mass effect, similar to prior exam. Continued imaging follow-up to ensure complete resolution is recommended. ACT 112: Negative or not required by law. Electronically signed by: Hesham Johnson M.D. 09/30/2020 11:33 AM
[2020-09-30 11:47] LABS: Hematocrit (blood only) 48.4 % (42-52); Hemoglobin 16.9 g/dL (14.0-18.0); Mean Corpuscular Hemoglobin 30.5 pg (25-34); Mean Corpuscular Hgb Conc 34.9 g/dL (32-36); Mean Corpuscular Volume 87.4 fL (80-100); Mean Platelet Volume 11.3 fL (7.4-10.4); Platelet Count 205 K/uL (130-400); RDW Coefficient of Variation 12.8 % (11.5-14.5); RDW Standard Deviation 41.2 fL (36.4-46.3); Red Blood Count 5.54 M/uL (4.7-6.1); White Blood Count 14.52 K/uL (4.8-10.8)
[2020-09-30 12:16] LABS: Calcium 9.1 mg/dl (8.5-10.1); Creatinine Clr Calc Pharmacy 46.7 ml/min; Est GFR (African American) 42.9 ml/min; Potassium 3.7 mmol/L (3.5-5.1)
[2020-09-30] MEDS ORDERED: INSULIN GLARGINE SOLOSTAR 100 UNITS/ML 3 ML PEN SQ SCH (21:00)
--- NOTE | 2020-10-02 12:10 | Discharge Summary ---
Date of Service September 30, 2020 Admission HPI Per Admitting Provider Mr. Schmidt is a 75 yo gentleman who presented to the [facility] ED with ongoing nausea and fatigue. Of note, he presented to [facility] ED on 09/20/2020 with new onset confusion - he was subsequently transferred to [facility] when his non- contrast head CT returned positive for an acute intracranial hemorrhage. This bleed was atraumatic. He was not on any anticoagulation at the time, but was taking a daily baby ASA (for secondary CVD prevention). At [facility], he was admitted to the neuro ICU. Brain MRI showed the known active bleed, but no AVM was visualized. His systolic BPs were exceeding 200s while there, so he was briefly placed on a nicardipine drip. He did have aspirin function testing, which showed he was therapeutic. He was stated on seizure prophylaxis with Keppra, but this was discontinued upon discharge. He was d ischarged from [facility] on 09/23/20 to [facility] for rehab. He was directed to restart his daily baby ASA on 10/06/20. His reports ongoing nausea (with 1 episode of non-bloody vomitus) and progr essive fatigue since he arrived at [facility]. They had been giving him zofran at [facility], which was not helpful. In the ED, he was afebrile, HR was normal, BP was elevated to 169/99. His WBC was elevated to 14. Hgb and platelets were normal. Coags were normal. Na was mildly low at 134. Creatinine elevated to 1.8 (baseline 1.6-1.7). Lactate was not elevated. Trop was undetectable. Lipase not elevated. TSH was normal. UA without suspicion for infection. EKG showing NSR, no ST segment changes, QTc at 474ms. CXR showing no active disease. A/P CT scan showing no acute processes. Noncontrast Head CT showed no significant change in the 4.5cm R parietal hematoma; surrounding vasogenic edema. No hydrocephalus. Suspected trace interventricular blood. The ED provider did speak with Dr. Flores ([facility] neurosurgeon) who did not feel as though a transfer was necessary. No further brain imaging was recommended. He did suggest a trial of steroids. He was given 1 liter of NSS and 1 dose of zofran. Principal Diagnosis ICH ( BELOW) Discharge Exam Constitutional: + obese; no acute distress ENMT: Ears: no hearing impairment Neck: trachea midline, no thyromegaly Respiratory: normal respiratory effort, lungs clear to auscultation Cardiovascular: RRR, no murmur, no edema Gastrointestinal (Abdomen): Inspection/Auscultation: normal bowel sounds Percussion/Palpation: abdomen soft; abdomen nontender Neurologic: awake; not confused Speech / Cognition: normal speech Lymphatic: no cervical or axillary lymphadenopathy Discharge Data Allergies Allergy/AdvReac Type Severity Reaction Status Date / Time atorvastatin AdvReac Intermediate severe Verified 09/26/20 16:56 muscle aches Consultations 09/26/20 21:22 ED Decision to Admit Stat 09/26/20 21:56 Consult Neurology Routine Ordered Studies 09/26/20 15:16 CT head/brain wo con Stat 09/26/20 16:52 CT abd pelvis wo con Stat 09/30/20 10:35 CT head/brain wo con Routine Hospital Course (1) ICH (intracerebral hemorrhage): Right parietal ICH on 09/20/20. Treated non-operatively at [facility]. Admitted for n/v. This has resolved. ASA on hold. Phenergan PRN for n/v. Hx of GERD. Will add pantoprazole daily. Appreciate neurology consult. Recommend dexamethasone 4mg PO daily for the time being. Taper over the next few days if symptoms remains stable. Monitor glucose while on dexamethasone. Resume ASA October 06 per previous [facility] recommendations if patient remains clinically stable. Patient had nausea. Required phenergan and zofran during the first 24-36 hours. Has not required for past 24 hours. will discharge on phenergan PRN. Will try to limit this due to delirium, however, was only medication controlling his nausea. It appears his nausea is related tp his ICH Updated on hospital acquired delirium, may have prolonged recovery with some waxing and waning. Recommend reorientation. Repeat CT scan on discharge did not show any increase in Intracranial hemorrhage. is agreeable to discharge. (2) Hypertension: Goal is systolic <130 given recent ICH. Elevated at 148/80 this morning. - continue home medications - PRN Lopressor (for HR > 70) and Hydralazine (for HR < 70) on board (3) Leukocytosis: Normalized to 10.73 today. (4) Type 2 diabetes mellitus: - continue home basal insulin - glucose checks ACHS - SSI ordered with tight parameters due to IV steroid use. Glucose has been over 200 since admission. Continue to monitor. May need pharmacy glycemic management if difficulty with control. Taper dexamethasone when clinically stable. - HbA1c 7.5 in 07/2020 - at goal for his age - patient is on an ACEI - he is also on a low intensity statin (tolerability issues with atorvastatin noted in chart; unclear if he has tried crestor) - carb consistent, heart healthy diet (5) S/P CABG (coronary artery bypass graft): - patient had 3 vessel CABG in 2004 at [facility] - ASA is for secondary prevention - hold at least until 10/06/20 per [facility] recommendations (6) Chronic kidney disease, stage III (moderate): - baseline Cr 1.6-1.7 - Cr on admission 1.8, BUN at 34, ratio of 19--> Cr improved to 1.72 this AM. - suspect pre-renal given hx of recent poor PO intake - continue IVF - improved to 1.56 (7) DVT prophylaxis: Chemical prophylaxis contraindicated in the setting of recent ICH. SCDs Total Time Total Time Spent Total Time Spent (In Minutes): 32 Total Time Includes: Examination of the Patient, Discharge Planning and Medication Reconciliation Discharge Plan Discharge Items Patient Disposition: Transfer Residential Fac Reason For Visit: UNCONTROLLED NAUSEA Discharge Diagnosis: uncontrolled nausea Activity: Resume your previous activity Non-emergency contact: Primary Care Provider Call non-emergency contact if: you have any medication questions Follow-up/Referrals: Caleb Arias MD [Primary Care Provider] - Diet: Carb Consistent or DM2 and Heart Healthy Addtl Attending Provider Instructions: Recommend dexamethasone taper over the next few days if symptoms remains stable. Resume Aspirin October 06 per previous [facility] recommendations if patient remains clinically stable. Pending Studies at Discharge: No Stand-Alone Forms: [facility] Skilled Items Patient informed of condition?: Yes DNR: No Discharge Level of Care: Skilled Communicable Disease: No Discharge Prognosis: Stable Lines: None Urinary Catheter: No Medications and DC Order Prescriptions: New pantoprazole 40 mg Tablet,Delayed Release (Dr/Ec) 40 mg PO QAM Qty: 30 RF: 0 dexamethasone [Decadron] 0.75 mg tablet See Rx Instructions .ROUTE .COMPLEX Qty: 20 RF: 0 promethazine 12.5 mg tablet 12.5 mg PO Q6H PRN (Reason: nausea and vomiting) Qty: 30 RF: 0 Continued bumetanide 1 mg tablet 1 mg PO BID Qty: 180 RF: 3 Lantus Solostar U-100 Insulin 100 unit/mL (3 mL) insulin pen 40 unit SUBCUT HS 90 Days Qty: 36 RF: 3 nitroglycerin 0.4 mg tablet, sublingual 0.4 mg Sublingual Q5M PRN (Reason: Chest Pain) Qty: 20 RF: 3 lisinopril 20 mg tablet 30 mg PO QAM Qty: 135 RF: 3 metoprolol succinate 100 mg tablet extended release 24 hr 100 mg PO BID Qty: 180 RF: 3 (DME) pen needle, diabetic [BD Ultra-Fine Lainey Pen Needle] 32 gauge x 5/32" needle See Dose Instructions .ROUTE .MEDSUPPLY Qty: 400 RF: 3 insulin aspart U-100 [Novolog Flexpen U-100 Insulin] 100 unit/mL (3 mL) insulin pen 50 unit SUBCUT DAILY 90 Days Qty: 45 RF: 3 calcitriol 0.5 mcg capsule 0.5 mcg PO DAILY Qty: 90 RF: 3 (DME) blood-glucose meter Misc See Rx Instructions .ROUTE .MEDSUPPLY Qty: 1 RF: 0 (DME) FreeStyle Porfirio 2 Sensor Kit See Rx Instructions .ROUTE .MEDSUPPLY Qty: 1 RF: 0 (DME) FreeStyle Porfirio 2 [place] Misc See Rx Instructions .ROUTE .MEDSUPPLY Qty: 1 RF: 0 meclizine 25 mg tablet 25 mg PO Q6H PRN (Reason: Dizziness) Qty: 30 RF: 0 Vision tablet 1 tab PO QAM RF: 0 ezetimibe-simvastatin [Vytorin 10-80] 10-80 mg tablet 1 tab PO HS RF: 0 calcium carbonate [Tums] 200 mg calcium (500 mg) Tablet,Chewable 200 mg PO BID PRN (Reason: Heartburn) RF: 0 Discontinued aspirin [Aspirin Low Dose] 81 mg Tablet,Delayed Release (Dr/Ec) 81 mg PO QAM RF: 0 Discharge Orders: Discharge Order (Routine); Ordered 09/30/20 Ordered By: Jayy Khan Admission Data Admit Date/Time: 09/28/20 12:40 Attending Provider: Jayy Khan Admit Provider: Marla Andrews Primary Care Provider: Caleb Arias Other Providers: Temo Ashby ; Juan David Browning ; [facility] Other Interventions: Discharge Summary Assessment (RN) Last Done: 09/30/20 12:02 Coding Level of Care Code D/C Day Management >30 mins Diagnoses ICH (intracerebral hemorrhage) I61.9 Cerebral hemorrhage location: unspecified cerebral location Intracerebral hemorrhage etiology: nontraumatic Laterality: right Hypertension I10 Leukocytosis D72.829 Type 2 diabetes mellitus E11.9 S/P CABG (coronary artery bypass graft) Z95.1 Chronic kidney disease, stage III (moderate) N18.3 DVT prophylaxis Z29.9
== END 2020-09-30 17:07 | DRG 64 ==
LOC: ED 15:08 → 3N 15:08 → SUATTDRO 19:51 → 3N 21:56

== ENCOUNTER 2023-02-04 13:40 | Inpatient (IN) ==
[2023-02-04] MEDS ORDERED: LABETALOL HCL IV 5 MG/ML 20ML IV STA (14:19)
[2023-02-04] MEDS: SODIUM CHLORIDE 0.9% 500 ML IV SCH ×2 (14:34→21:33)
--- NOTE | 2023-02-04 14:55 | Emergency Department Note ---
Impression & Plan Confusion, Urinary incontinence ED Provider Note ED Provider Note NAME: JOHN RUGGIERO AGE:77 SEX: Male : 1945 ARRIVES VIA: private vehicle INFORMANT: Patient, ED PROVIDER(s): Haleigh Resendez DO CHIEF COMPLAINT: Confusion, urinary incontinence HPI: This is a 77-year-old male brought in by due to concern for increased confusion this morning. She states patient frequently gets up at night to use the bathroom and she discovered upon waking in the morning that he had been incontinent overnight in multiple areas. She states he had not complained of any change in or difficulty with urination recently. He denies abdominal pain, back pain, fevers or chills. She states he did have 1 UTI many years ago. She states with the worsening confusion over the course of the morning she was concerned as he has a prior history of intracranial hemorrhage that was reportedly from poorly controlled hypertension. She states she did check his blood sugar this morning and it was at 209. She states that they have had some difficulty recently controlling his blood sugar. He did not take any of his morning medications. She states he does follow with Dr. Flaherty for chronic kidney disease and his Bumex was recently changed from once daily to once every other day. No other recent change in activity or trauma. No other recent illness. Patient denies any concerns or complaints. PAST MEDICAL HISTORY:See Below PAST SURGICAL HISTORY:See Below FAMILY HISTORY:See Below SOCIAL HISTORY:See Below HOME MEDICATIONS:See Below ALLERGIES:See Below VITALS:See Below PHYSICAL EXAMINATION: GENERAL: alert, well appearing, well nourished, no distress, non-toxic EYE EXAM: normal conjunctiva, PERRL and EOM's grossly intact OROPHARYNX: no exudate, no erythema, lips, buccal mucosa, and tongue normal and mucous membranes are moist NECK: supple, no nuchal rigidity, no adenopathy, non-tender LUNGS: Clear to auscultation. Normal chest wall mechanics, no w/r/r HEART: no murmurs, S1 normal and S2 normal ABDOMEN: abdomen soft, non-tender, normo-active bowel sounds, no masses, no rebound or guarding. BACK: Back is symmetrical on inspection and there is no deformity, no midline tenderness, no CVA tenderness. SKIN: no rashes, petechiae, orbruising UPPER EXTREMITIES: upper extremities are grossly normal. FROM, nml pulses b/l. LOWER EXTREMITIES: No pitting edema. FROM, nml pulses b/l. NEURO EXAM: Normal sensorium, cranial nerves II-XII grossly intact, normal speech, no facial droop,nogross weakness of arms, no gross weakness of legs. Gross sensation intact. No ataxia. Vital Signs: reviewed and remarkable Differential Diagnosis: cva, ich, dissection, dehydration, uti, bebe, ureterolithiasis, URI, hypertensive urgency, hypertensive emergency, as well as others were considered MEDICAL DECISION MAKING: This is a 77-year-old male with significant past medical history including spontaneous intracranial hemorrhage who presents with due to concern for worsening confusion and urinary incontinence. Patient afebrile and vital signs stable. Patient cannot provide additional history however is at bedside to help with this. Labs drawn and sent, IV established, EKG and chest x-ray performed bedside interpreted by me and patient monitored in telemetry. Patient was noted to have a brief episode of possible polymorphic VT however was asymptomatic during this episode and immediately resumed a normal sinus rhythm. Repeat EKG was also unremarkable. Patient sent for CT which did not reveal any acute intracranial hemorrhage. Due to concern for worsening confusion, mild BEBE, and hyperglycemia without DKA, we discussed additional hospitalist evaluation. verbalized understanding was in agreement. Case discussed with the hospitalist team for additional evaluation and management. UA still pending at that time. Consultation(s): 1716: Discussed with Dr. Bales, [facility] hospitalist team, for additional evaluation ER Treatment Provided: See below Diagnostics Interpreted By Me: -ECG: Normal sinus at 93, first-degree AV block, leftward axis, normal intervals, nonspecific ST/T wave changes EKG #2 normal sinus at 96, first-degree AV block, leftward axis, normal intervals, no acute ST/T wave change -Cardiac Monitoring: An order was placed for continuous cardiac monitoring. The monitor shows a rate of 90 with normal sinus rhythm. -Laboratory studies: As stated above and show below. -Imaging studies: X-ray Chest: A single view study of the chest was reviewed and was negative for cardiomegaly, focal infiltrate, effusion, pulmonary edema, or wide mediastinum. Triage Nursing Note Reviewed Prior/Outside Records Reviewed -prior DC summary reviewed Past Med/Surg History Medical History Hearing deficit Meniere's disease Sensorineural hearing loss (SNHL) of left ear with restricted hearing of right ear CAD (coronary artery disease) Secondary hyperparathyroidism Hypertension Chronic kidney disease, stage III (moderate) Urinary tract infection GERD (gastroesophageal reflux disease) Diabetes mellitus, type 2 Hyperlipidemia Sleep apnea Surgical History History of left knee replacement History of colonoscopy with polypectomy History of arthroscopy History of esophagogastroduodenoscopy (EGD) History of cataract surgery History of endoscopic sinus surgery History of tonsillectomy History of cardiac cath History of coronary artery bypass graft Family History Mother Family history of diabetes mellitus Myocardial infarction Diabetes Cardiac disorder Hypertension Heart disease Father Myocardial infarction Cardiac disorder Alcohol abuse Brother Myocardial infarction Leukemia Alcohol abuse Stroke Melanoma Lymphoma Alzheimer disease Other No family history of adverse response to anesthesia Pure hypercholesterolemia Denies family history of Ovarian cancer Prostate cancer Breast cancer Colorectal cancer Social History Smoking Status: Former smoker Tobacco Type: Cigarettes Second Hand Exposure: No; Do You Dip or Chew Tobacco: No; Hx Alcohol Use: No Hx Substance Use: No Preferred Language: Bulgarian Communication Ability: AMS Visual Impairment: No Limitations Hearing Ability: Use of Hearing Aid Terminal Supervisor Required: No Beliefs That Will Affect Care: None marital status: Current Living Situation: Spouse current occupational status: retired Feels Safe at Home: Yes Diet: regular caffeine: Yes Dental Care, Regularly: Yes Physical Activity Frequency: Does not Exercise Seatbelt Use: always Sunscreen Use: No Assistive Devices: CPAP, Denture - Upper and Hearing Aid - Bilateral Allergies Allergies Allergy/AdvReac Type Severity Reaction Status Date / Time atorvastatin AdvReac Intermediate severe Verified 02/04/23 17:24 muscle aches Home Meds Home Medications Medication Instructions Recorded Confirmed vitamin A-vitamin C-vit E-min 1 tab PO QAM 10/31/18 02/04/23 tablet (Vision tablet) calcium carbonate 200 mg calcium 200 mg PO BID PRN Heartburn 09/04/19 02/04/23 (500 mg) chewable tablet (Tums) flash glucose scanning reader #1 ea 07/16/20 02/01/23 (FreeStyle Porfirio 2 Clutier) flash glucose sensor (FreeStyle #1 ea 07/16/20 02/01/23 Porfirio 2 Sensor kit) aspirin 81 mg tablet,delayed 81 mg PO .NOON 12/24/20 02/04/23 release blood-glucose meter #1 ea 09/29/21 02/01/23 flash glucose scanning reader 09/29/21 02/01/23 (FreeStyle Porfirio 2 Clutier) insulin aspar prot-insulin aspart 0 unit subcut BID 02/04/23 02/04/23 100 unit/mL (70-30) subcutaneous pen (Novolog Mix 70-30FlexPen U-100) memantine 5 mg tablet 5 mg PO .NOON 02/04/23 02/04/23 Previous Rx's Medication Instructions Recorded nitroglycerin 0.4 mg sublingual 0.4 mg sublingual Q5M PRN Chest 10/24/19 tablet Pain #20 tabs pen needle, diabetic 32 gauge x #400 ea 10/26/21" (BD Ultra-Fine Lainey Pen Needle) metoprolol succinate 100 mg 100 mg PO BID #180 tabs 05/16/22 tablet,extended release 24 hr lisinopril 20 mg tablet 40 mg (2 x 20 mg) PO QAM #90 tabs 09/02/22 ezetimibe 10 mg-simvastatin 80 mg 1 tab PO HS #90 tabs 12/19/22 tablet (Vytorin) meclizine 25 mg tablet 25 mg PO Q6H PRN Dizziness #15 tabs 12/22/22 bumetanide 1 mg tablet 1 mg PO Q OTHER DAY prn edema #180 01/18/23 tabs Results & Data (ED) Vital Signs Vital Signs - 24 hr 02/04/23 13:41 02/04/23 13:41 02/04/23 14:10 Temperature 36.6 C Temperature Source Temporal Artery Scan Pulse Rate 90 87 Respiratory Rate 18 20 Blood Pressure 183/99 H 164/110 H Blood Pressure Mean 127 128 Pulse Oximetry 96 96 Oxygen Delivery Method Room Air Room Air Sepsis Recent Fever Within 48 Hours No Sepsis New/Unexplained Change in Mental Status N/A Sepsis Action Taken by Nursing No Action Required 02/04/23 14:22 02/04/23 14:34 02/04/23 14:57 Temperature Temperature Source Pulse Rate 87 86 92 H Respiratory Rate Blood Pressure 186/106 H 189/109 H Blood Pressure Mean Pulse Oximetry Oxygen Delivery Method Sepsis Recent Fever Within 48 Hours Sepsis New/Unexplained Change in Mental Status Sepsis Action Taken by Nursing Laboratory Data 02/05/23 06:07 02/05/23 06:07 Lab Results 02/04/23 02/04/23 02/04/23 Range/Units 14:21 14:48 17:30 WBC 6.99 (4.8-10.8) K/ul RBC 4.90 (4.70-6.10) M/uL Hgb 15.3 (14.0-18.0) g/dl Hct 44.8 (42.0-52.0) % MCV 91.4 (80.0-100.0) fL MCH 31.2 (25.0-34.0) pg MCHC 34.2 (32.0-36.0) g/dL RDW Std Deviation 43.0 (36.4-46.3) fL RDW Coeff of Sudha 13.1 (11.5-14.5) % Plt Count 175 (130-400) K/uL MPV 10.6 (9.4-12.4) fL Immature Gran % (Auto) 0.3 % Neut % (Auto) 67.7 % Lymph % (Auto) 12.2 % Gage % (Auto) 19.6 % Eos % (Auto) 0.1 % Baso % (Auto) 0.1 % Neut # (Auto) 4.73 (1.40-6.50) K/uL Lymph # (Auto) 0.85 L (1.20-3.40) K/uL Gage # (Auto) 1.37 H (0.11-0.59) K/uL Eos # (Auto) 0.01 (0.00-0.50) K/uL Baso # (Auto) 0.01 (0.00-0.20) K/uL Immature Gran # (Auto) 0.02 (0.01-0.20) K/uL PT 11.1 (9.0-12.0) Seconds INR 1.0 (0.9-1.1) Sodium 138 (136-145) mmol/L Potassium 4.5 (3.5-5.1) mmol/L Chloride 105 (98-107) mmol/L Carbon Dioxide 26 (21-32) mmol/L Anion Gap 7 (3-11) BUN 24 H (6-23) mg/dl Creatinine 1.92 H (0.6-1.4) mg/dl Est Cr Clr Drug Dosing 38.2 ml/min Est GFR ( Amer) 37.5 ml/min Est GFR (Non-Af Amer) 32.4 ml/min BUN/Creatinine Ratio 12.5 (10-20) Glucose 211 H (70-99(Fasting)) mg/dl POC Glucose 224 H (70-99) mg/dl Calcium 9.7 (8.6-10.3) mg/dl Magnesium 1.8 (1.7-2.4) mg/dl Total Bilirubin 0.8 (0.2-1.0) mg/dl AST 28 (13-39) U/L ALT 33 (7-52) U/L Alkaline Phosphatase 40 (34-104) U/L Troponin I High Sens 26.1 H (0-20) pg/ml Total Protein 7.2 (6.0-8.3) gm/dl Albumin 4.0 (3.4-5.0) gm/dl Globulin 3.2 (2.5-4.0) gm/dl Albumin/Globulin Ratio 1.3 (0.9-2) Lipase 21 (11-82) U/L TSH 0.789 (0.300-4.500) uIu/ml Urine Color Yellow Urine Appearance Clear (Clear) Urine pH 5.5 (4.5-7.5) Ur Specific [place] 1.020 (1.000-1.030) Urine Protein 2+ H (Negative) Urine Glucose (UA) 2+ H (Negative) Urine Ketones Trace H (Negative) Urine Blood Negative (Negative) Urine Nitrite Negative (Negative) Urine Bilirubin Negative (Negative) Urine Urobilinogen Negative (Negative) Ur Leukocyte Esterase Negative (Negative) Urine WBC (Auto) 1-5 (0-5) /hpf Urine RBC (Auto) 0-4 (0-4) /hpf U Hyaline Cast (Auto) 1-5 (0-5) /lpf U Epithel Cells (Auto) 5-10 H (0-5) /lpf Urine Bacteria (Auto) Negative (Negative) Adenovirus (PCR) Not Detected (NotDetected) B. pertussis DNA (PCR) Not Detected (NotDetected) B.parapertussis DNA PCR Not Detected (NotDetected) C. pneumoniae DNA (PCR) Not Detected (NotDetected) Coronavirus OC43 (PCR) Not Detected (NotDetected) Coronavirus HKU1 (PCR) Not Detected (NotDetected) Coronavirus 229E (PCR) Not Detected (NotDetected) SARS-CoV-2 (PCR) DETECTED A* (NotDetected) Coronavirus NL63 (PCR) Not Detected (NotDetected) Human Metapneumovir PCR Not Detected (NotDetected) Influenza Type A (PCR) Not Detected (NotDetected) Influenza Type B (PCR) Not Detected (NotDetected) M. pneumoniae (PCR) Not Detected (NotDetected) Parainfluenza 1 (PCR) Not Detected (NotDetected) Parainfluenza 2 (PCR) Not Detected (NotDetected) Parainfluenza 3 (PCR) Not Detected (NotDetected) Parainfluenza 4 (PCR) Not Detected (NotDetected) RSV (PCR) Not Detected (NotDetected) Entero/Rhino (PCR) Not Detected (NotDetected) Administered Medications Aspirin (Aspirin 81 Mg Ectab) 81 mg PO DAILY@1200 [facility] Stop: 03/07/23 11:59 Last Admin: 02/05/23 13:29 Dose: 81 mg Documented By: RAMSEY Insulin Aspart (Insulin Aspart Per Unit Charge) 0 units SC ACHS [facility] Stop: 03/06/23 18:59 Last Admin: 02/05/23 17:09 Dose: Not Given Documented By: Admin: 02/05/23 13:29 Dose: 5 units Documented By: RAMSEY Co-signed By: DONAL Admin: 02/05/23 08:53 Dose: 6 units Documented By: JAIME Co-signed By: GUERLINE Admin: 02/05/23 00:39 Dose: 3 units Documented By: MARCELA(2) Co-signed By: CHELSIE Admin: 02/04/23 20:50 Dose: 12 units Documented By: DMH Co-signed By: QGV Insulin Glargine (Lantus Per Unit Charge) 20 units SC BID [facility] Stop: 03/07/23 08:59 Last Admin: 02/05/23 08:54 Dose: 20 units Documented By: JAIME Co-signed By: GUERLINE Lisinopril (Lisinopril 40 Mg Tab) 40 mg PO QAM [facility] Stop: 03/07/23 08:59 Last Admin: 02/05/23 13:34 Dose: 40 mg Documented By: RAMSEY Memantine (Memantine Hcl 5 Mg Tab) 5 mg PO DAILY@1200 [facility] Stop: 03/07/23 11:59 Last Admin: 02/05/23 15:11 Dose: 5 mg Documented By: MARCELA Metoprolol Succinate (Metoprolol Succ 50mg Ext Rel Tab) 100 mg PO BID [facility] Stop: 03/07/23 11:14 Last Admin: 02/05/23 11:46 Dose: 100 mg Documented By: RAMSEY Discontinued Medications Acetaminophen (Acetaminophen 325 Mg Tab) 650 mg PO NOW STA Stop: 02/04/23 18:39 Last Admin: 02/04/23 18:46 Dose: 650 mg Documented By: JENARO Sodium Chloride (Nss) 500 mls @ 80 mls/hr IV .Q6H15M [facility] Stop: 03/06/23 14:29 Last Infusion: 02/05/23 14:22 Dose: Infused Documented By: Admin: 02/05/23 12:03 Dose: Not Given Documented By: Admin: 02/05/23 12:02 Dose: 80 mls/hr Documented By: Infusion: 02/05/23 07:19 Dose: Infused Documented By: Admin: 02/04/23 21:33 Dose: 80 mls/hr Documented By: Infusion: 02/04/23 18:12 Dose: Infused Documented By: Admin: 02/04/23 14:34 Dose: 80 mls/hr Documented By: JENARO Magnesium Sulfate/Dextrose (Magnesium Sulfate / D5w) 1 gm in 100 mls @ 100 mls/hr IV NOW STA Stop: 02/04/23 17:23 Last Infusion: 02/04/23 17:50 Dose: Infused Documented By: Admin: 02/04/23 16:46 Dose: 100 mls/hr Documented By: JENARO Lactated Ringer's (Lr) 1,000 mls @ 999 mls/hr IV .Q1H1M ONE Stop: 02/04/23 18:59 Last Infusion: 02/04/23 19:27 Dose: Infused Documented By: Admin: 02/04/23 18:12 Dose: 999 mls/hr Documented By: JENARO Magnesium Sulfate/Dextrose (Magnesium Sulfate / D5w) 1 gm in 100 mls @ 100 mls/hr IV NOW STA Stop: 02/04/23 19:13 Last Infusion: 02/04/23 21:11 Dose: Infused Documented By: Admin: 02/04/23 18:28 Dose: 100 mls/hr Documented By: JENARO Sodium Chloride (Nss) 1,000 mls @ 80 mls/hr IV .[id number] [facility] Stop: 03/07/23 14:44 Last Admin: 02/05/23 14:57 Dose: Not Given Documented By: Insulin Glargine (Lantus Per Unit Charge) 30 units SQ ONE ONE Stop: 02/04/23 19:16 Last Admin: 02/04/23 20:50 Dose: 30 units Documented By: CORY Co-signed By: QGV Labetalol HCl (Labetalol Hcl Iv 5 Mg/Ml 20ml) 10 mg IV NOW STA Stop: 02/04/23 14:20 Last Admin: 02/04/23 14:34 Dose: 10 mg Documented By: JENARO Co-signed By: EML Lisinopril (Lisinopril 20 Mg Tab) 40 mg PO NOW STA Stop: 02/04/23 15:54 Last Admin: 02/04/23 16:46 Dose: 40 mg Documented By: JENARO Lorazepam (Lorazepam 2 Mg/1 Ml Vial) 1 mg IV NOW STA Stop: 02/04/23 19:14 Last Admin: 02/04/23 19:27 Dose: 1 mg Documented By: QGV Imaging Data Radiologist's Impression: Chest X-Ray 02/04/23 14:19 XR chest 1V portable CLINICAL HISTORY: cough TECHNIQUE: Single frontal radiograph of the chest was obtained. Comparison: Comparison is made to chest radiograph 09/26/2020 FINDINGS: Median sternotomy wires are seen with a fractured superior and third wire. Calcified aortic knob is seen. The lungs are clear. No evidence of pleural effusion or pneumothorax. IMPRESSION: No acute abnormalities and in particular no radiographic evidence of pneumonia. ACT 112: Negative or not required by law. Electronically signed by: Wil Easley M.D. 02/04/2023 4:[address] 02/04/23 14:19 CT head/brain wo con CLINICAL HISTORY: confusion, hx ICH Technique: Contiguous axial CT images of the head were acquired from the base of the skull to the vertex without intravenous contrast administration. Images were viewed in brain, subdural and bone windows. Automated dose lowering techniques and/or adjustment according to patient size were utilized for this exam. Comparison: Comparison is made to CT head 09/30/2020 Findings: No acute intracranial hemorrhage is seen. There is encephalomalacia of the right parietal lobe corresponding to previous intracranial hemorrhage. Chronic volume loss changes are seen. Encephalomalacia in the right lobe of the cerebellum is unchanged. Imaged portions of the paranasal sinuses and mastoid air cells are clear. The orbits appear normal. There are no acute fractures of the calvaria or scalp swelling. Impression: No acute intracranial hemorrhage. ACT 112: Negative or not required by law. Electronically signed by: Wil Easley M.D. 02/04/2023 4:50 PM Discharge Plan Visit Data Chief Complaint: Altered Mental Status Stated Complaint: ALTERED MENTAL STATUS ED Provider: Haleigh Resendez Discharge Problem: Confusion, Urinary incontinence Patient Disposition: Admitted As Inpatient Discharge Instructions Interventions: ED Discharge Assessment Last Done: 02/04/23 19:03
[2023-02-04 15:05] LABS: Basophils # (auto) 0.01 K/uL (0.00-0.20); Basophils % (auto) 0.1 %; Eosinophils # (auto) 0.01 K/uL (0.00-0.50); Eosinophils % (auto) 0.1 %; Hematocrit (blood only) 44.8 % (42.0-52.0); Hemoglobin 15.3 g/dl (14.0-18.0); Immature Granulocytes # (auto) 0.02 K/uL (0.01-0.20); Immature Granulocytes % (auto) 0.3 %; Lymphocytes # (auto) 0.85 K/uL (1.20-3.40); Lymphocytes % (auto) 12.2 %; Mean Corpuscular Hemoglobin 31.2 pg (25.0-34.0); Mean Corpuscular Hgb Conc 34.2 g/dL (32.0-36.0); Mean Corpuscular Volume 91.4 fL (80.0-100.0); Mean Platelet Volume 10.6 fL (9.4-12.4); Monocytes # (auto) 1.37 K/uL (0.11-0.59); Monocytes % (auto) 19.6 %; Neutrophils # (auto) 4.73 K/uL (1.40-6.50); Neutrophils % (auto) 67.7 %; Platelet Count 175 K/uL (130-400); RDW Coefficient of Variation 13.1 % (11.5-14.5); White Blood Count 6.99 K/ul (4.8-10.8)
[2023-02-04 15:20] LABS: Albumin Globulin Ratio 1.3 (0.9-2); BUN Creatinine Ratio 12.5 (10-20); Bilirubin,Total 0.8 mg/dl (0.2-1.0); Calcium 9.7 mg/dl (8.6-10.3); Creatinine Clr Calc Pharmacy 38.2 ml/min; Est GFR (African American) 37.5 ml/min; Est GFR (Non-African American) 32.4 ml/min; Globulin 3.2 gm/dl (2.5-4.0); Magnesium 1.8 mg/dl (1.7-2.4); Potassium 4.5 mmol/L (3.5-5.1); Total Protein 7.2 gm/dl (6.0-8.3)
[2023-02-04 15:26] LABS: Troponin I High Sensitivity 26.1 pg/ml (0-20)
[2023-02-04 15:29] LABS: Prothrombin Time 11.1 Seconds (9.0-12.0)
[2023-02-04 15:36] LABS: Thyroid Stimulating Hormone 0.789 uIu/ml (0.300-4.500)
[2023-02-04] MEDS ORDERED: lisinopril 20 MG TAB PO STA (15:53)
--- NOTE | 2023-02-04 16:19 | XRay Report ---
XR chest 1V portable CLINICAL HISTORY: cough TECHNIQUE: Single frontal radiograph of the chest was obtained. Comparison: Comparison is made to chest radiograph 09/26/2020 FINDINGS: Median sternotomy wires are seen with a fractured superior and third wire. Calcified aortic knob is s een. The lungs are clear. No evidence of pleural effusion or pneumothorax. IMPRESSION: No acute abnormalities and in particular no radiographic evidence of pneumonia. ACT 112: Negative or not required by law. Electronically signed by: Wil Easley M.D. 02/04/2023 4:17 PM
[2023-02-04] MEDS ORDERED: MAGNESIUM SULFATE / D5W 1 GM/100 ML BAG IV STA ×2 (16:24→18:14)
--- NOTE | 2023-02-04 16:51 | CT Scan Report ---
CT head/brain wo con CLINICAL HISTORY: confusion, hx ICH Technique: Contiguous axial CT images of the head were acquired from the base of the skull to the elvira alexis without intravenous contrast administration. Images were viewed in brain, subdural and [facility]. Automated dose lowering techniques and/or adjustment according to patient size were utilized for this exam. Comparison: Comparison is made to CT head 09/30/2020 Findings: No acute intracranial hemorrhage is seen. There is encephalomalacia of the right parietal lobe corres ponding to previous intracranial hemorrhage. Chronic volume loss changes are seen. Encephalomalacia in the right lobe of the cerebellum is unchanged. Imaged portions of the paranasal sinuses and mastoid air cells are clear. The orbits appear normal. There are no acute fractures of the calvaria or scalp swelling. Impression: No acute intracranial hemorrhage. ACT 112: Negative or not required by law. Electronically signed by: Wil Easley M.D. 02/04/2023 4:50 PM
--- NOTE | 2023-02-04 17:16 | History & Physical Report ---
Date of Service February 04, 2023 Assessment & Plan (1) Arrhythmia: Plan: -Admit to the PCU on tele -Currently stable and asymptomatic -Patient presented to the ED for increased confusion/fatigue. -While in the ED and on tele the patient had an approximately 3 second run of V- tach and later had a short run a sinus pause, both were asymptomatic -The patient's episode of possible sinus pause occurred right after the patient coughed, it was witnessed by the ED staff and the patient was asymptomatic -The patient has a hx of CAD S/P CABG on 02/10/05 with YEAGER to LAD, SVG from aorta to circumflex -Potassium stable at 4.5, mag of 1.8, calcium of 9.7 -Patient has been found to be Covid positive on biodfire ordered on admission, unsure if this could be contributing at this time -Patient did not have his am metoprolol and was then given 10 mg IV labetalol in the ED for HTN, unsure if this is contributing -Patient was given 500 mL NSS and 1gm IV mag-sulfate in the ED, will give another 1gm IV mag sulfate now -Will give 1L LR on admission as the patient appears dehydrated from poor oral intake -Continue to monitor on tele, fall precautions ordered -Initial high sen trop in the ED elevated at 26, patient denies any chest discomfort -Will repeat a 2 hour high sen trop now -Will hold home metoprolol for now with his recent pauses; can resume tomorrow if stable -Will obtain TTE tomorrow for further evaluation -Hold chemical DVT PPX at this time as he is high risk for falls with his confusion, recent arrhythmias, and hx of brain hemorrhage -HH/DMII diet -AM CBC, CMP, Mag, PT/INR (2) Confusion: Plan: -Started last night along with a mild, non-productive cough -CT head negative -Found to be Covid 19 positive; this is likely the cause -Fall precautions, aspiration precautions -No need for further imaging at this time as we likely have the etiology (3) COVID-19: Plan: -Currently stable on RA -Chest Xray clear -Supportive measures for now -Incentive spirometry, flutter therapy, prn albuterol -Will add prn antitussive (4) DM (diabetes mellitus), type 2 with complications: Plan: -Monitor BSG ACHS, goal is 110-160 -Normally on Novolog 70/30 -Will start 5 units lantus BID, start CF of 50 -DMII/HH diet -Pharmacy glycemic consult placed (5) History of intracranial hemorrhage: Plan: -CT negative for acute hemorrhage -Fall precautions ordered (6) Obstructive sleep apnea of adult: Plan: -No longer compliant (7) Hypertension: Plan: -Now stable -Hold Metoprolol for now due to sinus pause - can be resumed in the AM pending review of telemetry -Hold Bumex for now with dehydration (8) Hyperlipidemia: Plan: -Continue statin (9) History of coronary artery bypass graft: Plan: -Continue aspirin Plan The patient was discussed with Dr. 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 He was noted to be hypertensive at 189/109 in the ED but otherwise stable. Labs were significant for a lymphocyte count of 0.85, glucose of 244, initial high sen trop of 26, and UA yet to be collected. CT of the head/brain WO con and Chest xray were read as no acute processes. Prior to admission the patient was given 500 mL NSS, 10 mg IV labetalol, 40 mg PO lisinopril, and 1gm IV mag-sulfate. We were asked to admit the patient for further evaluation of acute mental status changes as the patient is currently not safe to return home as his is his main caregiver at this time. At the time of the exam the patient was sitting in bed in no acute distress with his sitting bedside, history was obtained mainly from the patient's due to his current mental state. She states that over the past 24 hours he has had progressive fatigue, increased confusion from baseline, and increased urinary frequency. 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 She denies any fevers from the patient over the past 24 hours, he denies recent chest pain, SOB, abd pain, nausea, vomiting, diarrhea, dysuria, LW swelling, and recent fall. His states that the patient has developed a non-productive cough over the past 24 hours. He did not take any of his am meds as per his . He is a full code and his is his POA Please refer to Dr. Bales's attestation for any change to the treatment plan Allergies Allergy/AdvReac Type Severity Reaction Status Date / Time atorvastatin AdvReac Intermediate severe Verified 02/04/23 17:24 muscle aches Home Medications Medication Instructions Recorded Confirmed Type vitamin A-vitamin C-vit E-min 1 tab PO QAM 10/31/18 02/04/23 History tablet (Vision tablet) calcium carbonate 200 mg calcium 200 mg PO BID PRN Heartburn 09/04/19 02/04/23 History (500 mg) chewable tablet (Tums) nitroglycerin 0.4 mg sublingual 0.4 mg sublingual Q5M PRN Chest 10/24/19 02/04/23 Rx tablet Pain #20 tabs flash glucose scanning reader #1 ea 07/16/20 02/01/23 History (FreeStyle Porfirio 2 Elliott) flash glucose sensor (FreeStyle #1 ea 07/16/20 02/01/23 History Porfirio 2 Sensor kit) aspirin 81 mg tablet,delayed 81 mg PO .NOON 12/24/20 02/04/23 History release blood-glucose meter #1 ea 09/29/21 02/01/23 History flash glucose scanning reader 09/29/21 02/01/23 History (FreeStyle Porfirio 2 Elliott) pen needle, diabetic 32 gauge x #400 ea 10/26/21 02/01/23 Rx 5/32" (BD Ultra-Fine Lainey Pen Needle) metoprolol succinate 100 mg 100 mg PO BID #180 tabs 05/16/22 02/04/23 Rx tablet,extended release 24 hr lisinopril 20 mg tablet 40 mg (2 x 20 mg) PO QAM #90 tabs 09/02/22 02/04/23 Rx ezetimibe 10 mg-simvastatin 80 mg 1 tab PO HS #90 tabs 12/19/22 02/04/23 Rx tablet (Vytorin) meclizine 25 mg tablet 25 mg PO Q6H PRN Dizziness #15 tabs 12/22/22 02/04/23 Rx bumetanide 1 mg tablet 1 mg PO Q OTHER DAY prn edema #180 01/18/23 02/04/23 Rx tabs insulin aspar prot-insulin aspart 0 unit subcut BID 02/04/23 02/04/23 History 100 unit/mL (70-30) subcutaneous pen (Novolog Mix 70-30FlexPen U-100) memantine 5 mg tablet 5 mg PO .NOON 02/04/23 02/04/23 History Past Med/Surg History Medical History CAD (coronary artery disease) Chronic kidney disease, stage III (moderate) Diabetes mellitus, type 2 GERD (gastroesophageal reflux disease) Hearing deficit Hyperlipidemia Hypertension Meniere's disease Secondary hyperparathyroidism Sensorineural hearing loss (SNHL) of left ear with restricted hearing of right ear Sleep apnea Urinary tract infection Surgical History History of arthroscopy History of cardiac cath History of cataract surgery History of colonoscopy with polypectomy History of coronary artery bypass graft History of endoscopic sinus surgery History of esophagogastroduodenoscopy (EGD) History of left knee replacement History of tonsillectomy Family History (Updated 02/01/23 @ 11:16 by Saji Arias MD) Mother Family history of diabetes mellitus Myocardial infarction Diabetes Cardiac disorder Hypertension Heart disease Father Myocardial infarction Cardiac disorder Alcohol abuse Brother Myocardial infarction Leukemia Alcohol abuse Stroke Melanoma Lymphoma Alzheimer disease Other No family history of adverse response to anesthesia Pure hypercholesterolemia Denies family history of Ovarian cancer Prostate cancer Breast cancer Colorectal cancer Social History (Updated 02/01/23 @ 10:53 by JOSH Morgan) Smoking Status: Former smoker Tobacco Type: Cigarettes Second Hand Exposure: No; Do You Dip or Chew Tobacco: No; Hx Alcohol Use: No Hx Substance Use: No Preferred Language: [place] Islander Communication Ability: AMS Visual Impairment: No Limitations Hearing Ability: Use of Hearing Aid Green Marketing Analyst Required: No Beliefs That Will Affect Care: None marital status: Current Living Situation: Spouse current occupational status: retired Feels Safe at Home: Yes Diet: regular caffeine: Yes Dental Care, Regularly: Yes Physical Activity Frequency: Does not Exercise Seatbelt Use: always Sunscreen Use: No Assistive Devices: CPAP, Denture - Upper and Hearing Aid - Bilateral Physical Exam Physical Exam: Physical Exam: General: In no acute distress, stated age, non-toxic appearing HEENT: Normocephalic, atraumatic, no scleral icterus, pupils around round, symmetrical, and reactive to light, dry mucus membranes, trachea midline, no thyromegaly Chest/Pulm: No respiratory distress, symmetrical chest expansion, clear breath sounds throughout Cardiac: RRR, no murmurs noted Abdomen: Negative for ascites and bruising, normoactive bowel sounds, soft, non-tender to palpation throughout Musculoskeletal: Symmetrical and without signs of acute trauma, baseline left-sided weakness in the upper and lower extremities Extremities: Radial, dorsalis pedis, and posterior tibial pulses are intact and symmetrical, no edema noted in the BL LE's Skin: Warm, dry, no rashes , lesions, or scars noted Neuro: Alert and oriented to person, place, month, no focal defects, CN II- XII tested and intact, baseline tremor noted Psych: No acute distress, appears fatigued and pleasantly confused but is calm and cooperative Results & Data Results & Data Vital Signs (Past 12 Hours) Vital Signs Temp Pulse Resp BP Pulse Ox O2 Del Method 02/04/23 14:57 92 H 189/109 H 02/04/23 14:34 86 186/106 H 02/04/23 14:22 87 02/04/23 14:10 87 20 164/110 H 96 Room Air 02/04/23 13:41 Room Air 02/04/23 13:41 36.6 C 90 18 183/99 H 96 Laboratory Results Abnormal lab results 02/04/23 02/04/23 02/04/23 Range/Units 14:21 14:48 17:30 Lymph # (Auto) 0.85 L (1.20-3.40) K/uL Marshall # (Auto) 1.37 H (0.11-0.59) K/uL BUN 24 H (6-23) mg/dl Creatinine 1.92 H (0.6-1.4) mg/dl Glucose 211 H (70-99(Fasting)) mg/dl POC Glucose 224 H (70-99) mg/dl Troponin I High Sens 26.1 H (0-20) pg/ml Urine Protein 2+ H (Negative) Urine Glucose (UA) 2+ H (Negative) Urine Ketones Trace H (Negative) U Epithel Cells (Auto) 5-10 H (0-5) /lpf Diagnostic Findings Chest X-Ray 02/04/23 14:19 XR chest 1V portable CLINICAL HISTORY: cough TECHNIQUE: Single frontal radiograph of the chest was obtained. Comparison: Comparison is made to chest radiograph 09/26/2020 FINDINGS: Median sternotomy wires are seen with a fractured superior and third wire. Calcified aortic knob is seen. The lungs are clear. No evidence of pleural effusion or pneumothorax. IMPRESSION: No acute abnormalities and in particular no radiographic evidence of pneumonia. ACT 112: Negative or not required by law. Electronically signed by: Wil Easley M.D. 02/04/2023 4:[address] 02/04/23 14:19 CT head/brain wo con CLINICAL HISTORY: confusion, hx ICH Technique: Contiguous axial CT images of the head were acquired from the base of the skull to the vertex without intravenous contrast administration. Images were viewed in brain, subdural and bone windows. Automated dose lowering techniques and/or adjustment according to patient size were utilized for this exam. Comparison: Comparison is made to CT head 09/30/2020 Findings: No acute intracranial hemorrhage is seen. There is encephalomalacia of the right parietal lobe corresponding to previous intracranial hemorrhage. Chronic volume loss changes are seen. Encephalomalacia in the right lobe of the cerebellum is unchanged. Imaged portions of the paranasal sinuses and mastoid air cells are clear. The orbits appear normal. There are no acute fractures of the calvaria or scalp swelling. Impression: No acute intracranial hemorrhage. ACT 112: Negative or not required by law. Electronically signed by: Wil Easley M.D. 02/04/2023 4:50 PM ECG Additional Comments: Normal sinus rhythm Left anterior fascicular block Abnormal QRS-T angle, consider primary T wave abnormality Abnormal ECG When compared with ECG of 04-FEB-2023 14:55, (unconfirmed) ST no longer depressed in Inferior leads Nonspecific T wave abnormality no longer evident in Inferior leads Code Status & VTE Plan Code Status Full code VTE Prophylaxis Plan VTE Prophylaxis will be ordered: Yes Supervising Physician Co-Signing Physician Notes Patient seen and examined, chart reviewed, case discussed with SOHN Irwin and I agree with the assessment and plan as above. In brief, patient is a 77yo male with AMS secondary to Covid-19 Stable respiratory status Patient did have what seems to be a run of torsades on monitor as well as a sinus pause On exam he is afebrile, HD stable Skin - no rash HEENT - NC/AT, PERRL, MMM, Neck supple Heart - +S1/S2, regular, no m/r/g Lungs - CTA Abd - soft, NT/ND Ext- warm, well perfused Labs and images reviewed Covid-19+ Assessment/Plan -Telemetry monitoring -Aggressive electrolyte repletion -Trend troponin -Check 2D echo Frequent orientation Patient's is going to contact her PCP to get a prescription for Paxlovid Remainder as above PG Care Time/CCT Total # of Minutes Spent Total Time Spent with Patient: Total time spent is greater than 50% in coordination of care (as documented) at patient's floor/unit and/or counseling patient: C[place] [address] INT INP/OBS CARE 2/55MIN Patient Type Established Medical Decision Making Moderate Complexity Diagnoses Arrhythmia I49.9 Confusion R41.0 COVID-19 U07.1 DM (diabetes mellitus), type 2 with complications E11.8 History of intracranial hemorrhage Z86.79 Obstructive sleep apnea of adult G47.33 Primary hypertension I10 Hypertension type: primary hypertension Mixed hyperlipidemia E78.2 Hyperlipidemia type: mixed hyperlipidemia History of coronary artery bypass graft Z95.1 (7) Hypertension Hypertension type: primary hypertension Qualified Code(s): I10 - Essential (primary) hypertension (8) Hyperlipidemia Hyperlipidemia type: mixed hyperlipidemia Qualified Code(s): E78.2 - Mixed hyperlipidemia
[2023-02-04 17:46] LABS: Appearance Urine Clear (Clear); Bacteria Urine Automated Negative (Negative); Bilirubin Urine Negative (Negative); Blood Urine Negative (Negative); Color Urine Yellow; Glucose Urine UA 2+ (Negative); Ketones Urine Trace (Negative); Leukocyte Esterase Urine Negative (Negative); Nitrite Urine Negative (Negative); Protein Urine 2+ (Negative); RBC Urine Automated 0-4 /hpf (0-4); Urobilinogen Urine Negative (Negative); pH Urine 5.5 (4.5-7.5)
[2023-02-04] MEDS ORDERED: LACTATED RINGER'S 1,000 ML IV ONE (17:59)
[2023-02-04 18:31] LABS: Adenovirus PCR Not Detected (NotDetected); Bordetella parapertussis PCR Not Detected (NotDetected); Bordetella pertussis PCR Not Detected (NotDetected); Chlamydia pneumoniae PCR Not Detected (NotDetected); Coronavirus 229E PCR Not Detected (NotDetected); Coronavirus HKU1 PCR Not Detected (NotDetected); Coronavirus NL63 PCR Not Detected (NotDetected); Coronavirus OC43PCR Not Detected (NotDetected); Human Metapneumovirus PCR Not Detected (NotDetected); Influenza A PCR Not Detected (NotDetected); Influenza B PCR Not Detected (NotDetected); Mycoplasma pneumoniae PCR Not Detected (NotDetected); Parainfluenza Virus 1 PCR Not Detected (NotDetected); Parainfluenza Virus 2 PCR Not Detected (NotDetected); Parainfluenza Virus 3 PCR Not Detected (NotDetected); Parainfluenza Virus 4 PCR Not Detected (NotDetected); Respiratory Syncytial VirusPCR Not Detected (NotDetected); Rhinovirus/Enterovirus PCR Not Detected (NotDetected)
[2023-02-04] MEDS ORDERED: GLUCAGON FOR INJ 1 MG VIAL SQ PRN (18:32)
[2023-02-04] MEDS ORDERED: DEXTROSE 50% 50 ML SYRINGE IV PRN (18:32)
[2023-02-04] MEDS ORDERED: GLUCOSE 40% GEL 15 GM TUBE PO PRN (18:32)
[2023-02-04] MEDS ORDERED: GLUCOSE 10 TAB/TUBE PO PRN (18:32)
[2023-02-04] MEDS ORDERED: CARBOHYDRATES FOR HYPOGLYCEMIA PO PRN (18:32)
[2023-02-04 18:33] LABS: Coronavirus CoV-2 (COVID19)PCR DETECTED (NotDetected)
[2023-02-04] MEDS ORDERED: ACETAMINOPHEN 325 MG TAB PO STA (18:38)
[2023-02-04] MEDS ORDERED: guaiFENesin 600 MG TABCR PO PRN (18:43)
[2023-02-04] MEDS ORDERED: PHARMACY GLYCEMIC MGMT CONSULT PRN (18:46)
[2023-02-04] MEDS ORDERED: LORazepam 2 MG/1 ML VIAL IV STA (19:13)
[2023-02-04] MEDS ORDERED: LANTUS PER UNIT CHARGE SQ ONE (19:15)
[2023-02-04] MEDS: INSULIN ASPART PER UNIT CHARGE SC SCH (20:50)
[2023-02-04] MEDS ORDERED: INSULIN ASPART PER UNIT CHARGE SC SCH (21:00)
[2023-02-05] MEDS: INSULIN ASPART PER UNIT CHARGE SC SCH ×5 (00:39→20:34)
[2023-02-05 06:32] LABS: Basophils # (auto) 0.01 K/uL (0.00-0.20); Basophils % (auto) 0.2 %; Eosinophils # (auto) 0.01 K/uL (0.00-0.50); Eosinophils % (auto) 0.2 %; Hemoglobin 13.8 g/dl (14.0-18.0); Immature Granulocytes # (auto) 0.01 K/uL (0.01-0.20); Immature Granulocytes % (auto) 0.2 %; Lymphocytes # (auto) 1.09 K/uL (1.20-3.40); Lymphocytes % (auto) 20.2 %; Mean Corpuscular Hemoglobin 31.1 pg (25.0-34.0); Mean Corpuscular Hgb Conc 34.5 g/dL (32.0-36.0); Mean Corpuscular Volume 90.1 fL (80.0-100.0); Mean Platelet Volume 10.4 fL (9.4-12.4); Monocytes # (auto) 1.25 K/uL (0.11-0.59); Monocytes % (auto) 23.2 %; Neutrophils # (auto) 3.02 K/uL (1.40-6.50); Platelet Count 150 K/uL (130-400); RDW Coefficient of Variation 12.8 % (11.5-14.5); Red Blood Count 4.44 M/uL (4.70-6.10); White Blood Count 5.39 K/ul (4.8-10.8)
[2023-02-05 06:59] LABS: BUN Creatinine Ratio 15.3 (10-20); Calcium 8.8 mg/dl (8.6-10.3); Creatinine Clr Calc Pharmacy 46.6 ml/min; Est GFR (African American) 45.8 ml/min; Est GFR (Non-African American) 39.5 ml/min; Potassium 4.2 mmol/L (3.5-5.1)
[2023-02-05 07:55] LABS: Prothrombin Time 11.4 Seconds (9.0-12.0)
[2023-02-05 08:17] LABS: Estimated Average Glucose 229 mg/dl; Hemoglobin A1C 9.6 % (4.5-5.6)
[2023-02-05] MEDS: LANTUS PER UNIT CHARGE SC SCH ×2 (08:54→20:34)
[2023-02-05] MEDS: METOPROLOL SUCC 50MG EXT REL TAB PO SCH ×2 (11:46→23:59)
[2023-02-05] MEDS: SODIUM CHLORIDE 0.9% 500 ML IV SCH ×2 (12:02→12:03)
[2023-02-05] MEDS: ASPIRIN 81 MG ECTAB PO SCH (13:29)
[2023-02-05] MEDS: lisinopril 40 MG TAB PO SCH (13:34)
[2023-02-05] MEDS ORDERED: SODIUM CHLORIDE 0.9% 1,000 ML IV SCH (14:45)
--- NOTE | 2023-02-05 14:58 | Hospitalist Progress Note ---
Date of Service February 05, 2023 Assessment & Plan (1) Arrhythmia: Plan: -While in the ED and on tele the patient had an approximately 3 second run of V- tach versus torsades? And later had a short run a sinus pause, both were asymptomatic -He does have a bit of a tremor so it could be from this? -The patient's episode of possible sinus pause occurred right after the patient coughed, it was witnessed by the ED staff and the patient was asymptomatic -The patient has a hx of CAD S/P CABG on 02/10/05 with YEAGER to LAD, SVG from aorta to circumflex -Potassium stable at 4.5, mag of 1.8, calcium of 9.7 but was given IV magnesium -Patient has been found to be Covid positive -unsure if this could be contributing at this time -Patient did not have his am metoprolol and was then given 10 mg IV labetalol in the ED for HTN-we will restart metoprolol now - high sen trop elevated at 26 and repeat 2 hours later 27, now 47 and later in the day down to 42-, patient denies any chest discomfort -Echo pending -Consult cardiology -Continue to monitor on telemetry (2) Confusion: Plan: Acute encephalopathy secondary to [id number] with worsening confusion with mild cough and is COVID-19 positive -CT head negative -Improving already with IV fluid hydration and time -Supportive care (3) COVID-19: Plan: -Currently stable on RA -Chest Xray clear -Supportive measures for now, not a candidate for remdesivir given renal function. Could take Paxlovid renally dosed- to call PCP for this but I do not feel its beneficial -No steroids indicated as he is not hypoxic -Incentive spirometry, flutter therapy, prn albuterol - prn antitussive (4) DM (diabetes mellitus), type 2 with complications: Plan: -Monitor BSG ACHS, goal is 110-160 -Normally on Novolog 70/30 48 units in the morning and 30 in the evening -Continue Lantus and NovoLog as per pharmacy -DMII/HH diet (5) History of intracranial hemorrhage: Plan: -CT negative for acute hemorrhage -Fall precautions ordered (6) Obstructive sleep apnea of adult: Plan: -No longer compliant with CPAP (7) Hypertension: Plan: -Blood pressures normal to mildly elevated -Restart metoprolol -Hold Bumex for now with dehydration (8) Hyperlipidemia: Plan: -Restart home statin/Zetia (9) History of coronary artery bypass graft: Plan: -Continue aspirin, restart statin, lisinopril, metoprolol Plan Disposition-continued stay Admission and Anticipated Discharge Date Admission Date: February 04, 2023 Subjective Patient feeling better. reports he is much less confused. He has a mild cough, no chest pain or shortness of breath. Telemetry reviewed with possible torsades versus V. tach brief reviewed from yesterday but none further. Physical Exam Constitutional: WD/WN, vitals as above Respiratory: normal respiratory effort, lungs clear to auscultation Cardiovascular: RRR, no murmur, no edema Gastrointestinal (Abdomen): normal bowel sounds, soft, nontender, no hepatosplenomegaly Neurologic: moves all extremities and awake; no focal motor deficits Psychiatric: Orientation: alert, oriented to person, oriented to place and cooperative Results & Data Results & Data Vital Signs (Past 12 Hours) Vital Signs Temp Pulse Pulse Resp BP BP Pulse Ox 02/05/23 14:15 37.2 C 84 18 127/58 L 94 02/05/23 13:34 84 10 L 124/62 94 02/05/23 11:30 88 19 119/86 96 02/05/23 04:20 84 16 95 02/05/23 04:10 81 14 92 02/05/23 04:00 82 12 160/93 H 94 02/05/23 03:59 36.8 C 02/05/23 03:50 99 H 19 93 02/05/23 03:40 83 12 93 02/05/23 03:31 87 17 157/83 H 95 02/05/23 03:30 84 5 L 93 02/05/23 03:20 82 10 L 92 02/05/23 03:10 85 12 92 02/05/23 03:00 88 10 L 162/89 H 91 O2 Del Method 02/05/23 14:15 Room Air 02/05/23 13:34 Room Air 02/05/23 11:30 Room Air 02/05/23 04:20 02/05/23 04:10 02/05/23 04:00 02/05/23 03:59 02/05/23 03:50 02/05/23 03:40 02/05/23 03:31 02/05/23 03:30 02/05/23 03:20 02/05/23 03:10 02/05/23 03:00 Laboratory Results CBC, BMP, hemoglobin A1c, troponin reviewed PG Care Time/CCT Total # of Minutes Spent Total Time Spent with Patient: Total time spent is greater than 50% in coordination of care (as documented) at patient's floor/unit and/or counseling patient: Coding Level of Care Code 88162 SUB INP/OBS CARE 2/35MIN Diagnoses Arrhythmia I49.9 Confusion R41.0 COVID-19 U07.1 DM (diabetes mellitus), type 2 with complications E11.8 History of intracranial hemorrhage Z86.79 Obstructive sleep apnea of adult G47.33 Primary hypertension I10 Hypertension type: primary hypertension Mixed hyperlipidemia E78.2 Hyperlipidemia type: mixed hyperlipidemia History of coronary artery bypass graft Z95.1 (7) Hypertension Hypertension type: primary hypertension Qualified Code(s): I10 - Essential (primary) hypertension (8) Hyperlipidemia Hyperlipidemia type: mixed hyperlipidemia Qualified Code(s): E78.2 - Mixed hyperlipidemia
--- NOTE | 2023-02-05 14:59 | Pharmacy Report ---
Pharmacy Glycemic Short Note 2 - Date of Service February 05, 2023 - Glycemic Short BSG Results (Last 24 hours): 02/04/23 02/04/23 02/05/23 18:45 20:08 00:07 Glucose POC Glucose 216 H 224 H 195 H 02/05/23 02/05/23 06:07 11:45 Glucose 136 H POC Glucose 176 H OUTPATIENT ANTIDIABETIC REGIMEN: * Novolog 70/30 48 units with breakfast, 30 units with dinner HbA1c: 9.6% on 02/05/23 ASSESSMENT: * 77 y/o M admitted for arrhythmia. Patient has history of diabetes managed on Novolog 70/30 insulin BID with meals at home. * Will utilize basal and bolus insulin for glycemic control while in-patient. * BSGs above 200 mg/dl on admission yesterday. Basal insulin 30 units (stress of 3) was given last night. * Fasting BSG trended down to 136 mg/dl today. Basal insulin 20 units BID ordered which is based on stress of 2. * Novolog parameters started last night using stress of 2. Continued the same today. PLAN FOR INPATIENT GLYCEMIC CONTROL: * Hold outpatient oral diabetes medications * Basal insulin * Lantus 20 units SQ BID * Bolus insulin * NovoLog per scale ACHS or Q6hrs while NPO * Goal Range: Low 110 mg/dL - High 140 mg/dL * Correction Factor: 20 mg/dL/unit * Nutritional / Prandial insulin per carb ratio of 1 unit per 7 grams CHO consumed
[2023-02-05] MEDS: MEMANTINE HCL 5 MG TAB PO SCH (15:11)
--- NOTE | 2023-02-05 19:22 | Electrocardiogram Report ---
Test Reason : Blood Pressure : / mmHG Vent. Rate : 093 BPM Atrial Rate : 093 BPM P-R Int : 208 ms QRS Dur : 092 ms QT Int : 394 ms P-R-T Axes : 044 -60 267 degrees QTc Int : 489 ms Poor data quality, interpretation may be adversely affected Normal sinus rhythm Left anterior fascicular block Abnormal ECG When compared with ECG of 27-SEP-2020 07:27, Premature atrial complexes are no longer Present Confirmed by Surjit Copeland ([id number]) on 02/05/2023 7:21:41 PM Referred By: REFERRED SELF Confirmed By:Surjit Copeland
--- NOTE | 2023-02-05 19:25 | Electrocardiogram Report ---
Test Reason : Blood Pressure : / mmHG Vent. Rate : 096 BPM Atrial Rate : 096 BPM P-R Int : 204 ms QRS Dur : 096 ms QT Int : 352 ms P-R-T Axes : 060 -60 091 degrees QTc Int : 444 ms Normal sinus rhythm Left anterior fascicular block Abnormal QRS-T angle, consider primary T wave abnormality Abnormal ECG When compared with ECG of 04-FEB-2023 14:55, (unconfirmed) No significant change Confirmed by Surjit Copeland ([id number] on 02/05/2023 7:25:07 PM Referred By: REFERRED SELF Confirmed By:Surjit Copeland
[2023-02-06 06:41] LABS: Basophils # (auto) 0.01 K/uL (0.00-0.20); Basophils % (auto) 0.2 %; Eosinophils # (auto) 0.05 K/uL (0.00-0.50); Eosinophils % (auto) 0.9 %; Hematocrit (blood only) 45.3 % (42.0-52.0); Hemoglobin 15.2 g/dl (14.0-18.0); Immature Granulocytes # (auto) 0.01 K/uL (0.01-0.20); Immature Granulocytes % (auto) 0.2 %; Lymphocytes # (auto) 0.96 K/uL (1.20-3.40); Lymphocytes % (auto) 18.2 %; Mean Corpuscular Hemoglobin 30.9 pg (25.0-34.0); Mean Corpuscular Hgb Conc 33.6 g/dL (32.0-36.0); Mean Corpuscular Volume 92.1 fL (80.0-100.0); Mean Platelet Volume 10.2 fL (9.4-12.4); Monocytes # (auto) 0.98 K/uL (0.11-0.59); Monocytes % (auto) 18.6 %; Neutrophils # (auto) 3.27 K/uL (1.40-6.50); Neutrophils % (auto) 61.9 %; Platelet Count 142 K/uL (130-400); RDW Coefficient of Variation 12.9 % (11.5-14.5); RDW Standard Deviation 43.6 fL (36.4-46.3); Red Blood Count 4.92 M/uL (4.70-6.10); White Blood Count 5.28 K/ul (4.8-10.8)
[2023-02-06 06:48] LABS: BUN Creatinine Ratio 16.1 (10-20); Creatinine Clr Calc Pharmacy 41.7 ml/min; Est GFR (African American) 40.6 ml/min; Potassium 4.3 mmol/L (3.5-5.1)
[2023-02-06] MEDS: lisinopril 40 MG TAB PO SCH (08:56)
[2023-02-06] MEDS: LANTUS PER UNIT CHARGE SC SCH ×2 (09:08→20:27)
[2023-02-06] MEDS: INSULIN ASPART PER UNIT CHARGE SC SCH ×4 (09:08→20:26)
--- NOTE | 2023-02-06 09:32 | XCELERA ---
[id number] \\[id number]
--- NOTE | 2023-02-06 10:00 | Cardiology Consultation ---
Date of Consultation February 06, 2023 Assessment & Plan (1) NSVT (nonsustained ventricular tachycardia): (2) Sinus pause: (3) CAD (coronary artery disease): (4) History of coronary artery bypass graft: (5) Hypertension: (6) Hyperlipidemia: Plan Mr. Schmidt is a 77-year-old male with a history of Hypertension, Hypercholesterolemia, Type 2 Diabetes Mellitus, Stage 3 Chronic Kidney Disease, Secondary Hyperparathyroidism, GERD, Dementia, Diverticulosis Coli, BPH, Carotid Artery Plaques, Tremor, NADIA, Meniere's Disease, Prior Intracranial Hemorrhage, and CAD s/p CABG x 2 Vessels 2004 who was brought into the ER by his on 02/423 due to increased confusion that morning and he tested positive for SARS Co-V 2. According to his , the patient frequently gets up at night to use the bathroom and she discovered after waking up in the morning that he had been inco ntinent overnight in multiple areas. Patient has not complained of any change in or difficulty with urination recently. He denied abdominal pain, back pain, fevers or chills. The patient was treated for a single UTI many years ago. His was very concerned due to his worsening confusion over the course of the morning because he has a prior history of intracranial hemorrhage that was reportedly from poorly controlled hypertension. Patient's checked his blood sugar on the morning of 02/04/23 and it was at 209 mg/dL. Apparently they have had some difficulty recently controlling his blood sugar. He did not take any of his morning medications on the day of admission. The patient does follow with Dr. Flaherty for chronic kidney disease and his Bumex was recently changed from once daily to once every other day. Patient offers no complaints today. As mentioned, he tested positive for COVID, but he has not had any respiratory symptoms, fevers, chills, headache, stiff neck, cough, or GI symptoms. Patient has not had any limiting cardiopulmonary symptoms leading up to this hospitalization. He has not had any angina pectoris or anginal equivalent symptoms, overt signs or symptoms of heart failure, nor has he had any symptoms suggestive of a hemodynamically significant dysrhythmia. He is not had any focal neurologic symptoms suggestive of stroke mini stroke. We reviewed his cardiac tracing/rhythm strips in detail. This morning the patient had a 4 beat run of NSVT at 05:13:54 which was asymptomatic. Also, the patient coughed and immediately after his monitoring coordinator showed a 3.4 second pause on 02/04/23 at 17:05:17 this was likely triggered by his cough resulting in Valsalva. This was asymptomatic as well. He has not had any bradycardias, and this is not an indication for a pacemaker. The rhythm strip that was questioned if it was Torsade's appears to be artifact as the narrow QRS spikes are seen at regular intervals. Recommend the following; 1. We agree with restarting Metoprolol Succinate ER 100 mg b.i.d.. If recurrent V-Tach or any longer episodes would recommend increasing his beta kari. 2. Continue Aspirin 81 mg daily. 3. Continue Simvastatin 80 mg daily. 4. Continue Lisinopril 40 mg daily. 5. Continue Zetia 10 mg daily. 6. Continue Bumex 1 mg every other day. 7. Continue all other medications as listed. 8. If blood pressure remains elevated, consider starting an alpha kari such as doxazosin or terazosin. Thank you for asking us to see this patient in consultation. If we can be of any further assistance you, please contact myself or Dr. Kramer. History of Present Illness Reason for Consultation: -- V-Tach, ? Torsades. -- Cardiac pause. Requesting Physician: Mery Hanson MD Attending Physician: Lars Kramer MD History of Present Illness Mr. Schmidt is a 77-year-old male with a history of Hypertension, Hypercholesterolemia, Type 2 Diabetes Mellitus, Stage 3 Chronic Kidney Disease, Secondary Hyperparathyroidism, GERD, Dementia, Diverticulosis Coli, BPH, Carotid Artery Plaques, Tremor, NADIA, Meniere's Disease, Prior Intracranial Hemorrhage, and CAD s/p CABG x 2 Vessels 2004 who was brought into the ER by his on 02/423 due to increased confusion that morning and he tested positive for SARS Co-V 2. According to his , the patient frequently gets up at night to use the b athroom and she discovered after waking up in the morning that he had been incontinent overnight in multiple areas. Patient had not complained of any change in or difficulty with urination recently. He denied abdominal pain, back pain, fevers or chills. The patient was treated for a single UTI many years ago. His was very concerned due to his worsening confusion over the course of the morning because he has a prior history of intracranial hemorrhage that was reportedly from poorly controlled hypertension. Patient's checked his blood sugar on the morning of 02/04/23 and it was at 209 mg/dL. Apparently they have had some difficulty recently controlling his blood sugar. He did not take any of his morning medications on the day of admission. The patient does follow with Dr. Flaherty for chronic kidney disease and his Bumex was recently changed from once daily to once every other day. This morning the patient had a 4 beat run of NSVT at 05:13:54 which was asymptomatic. Also, the patient coughed and immediately after his monitoring coordinator showed a 3.4 second pause. This was asymptomatic as well. Patient offers no complaints today. As mentioned, he tested positive for COVID, but he has not had any respiratory symptoms, fevers, chills, headache, stiff neck, cough, or GI symptoms. Patient has not had any limiting cardiopulmonary symptoms leading up to this hospitalization. He specifically denies any exertional chest pain, heaviness, tightness, pressure, or discomfort. He denies any exertional neck, jaw, back, or arm pain. He denies any shortness of breath, unusual dyspnea on exertion, orthopnea, or PND. He has not had any palpitations, syncope, or near-syncope. Allergies Allergy/AdvReac Type Severity Reaction Status Date / Time atorvastatin AdvReac Intermediate severe Verified 02/04/23 17:24 muscle aches Home Medications Medication Instructions Recorded Confirmed Type vitamin A-vitamin C-vit E-min 1 tab PO QAM 10/31/18 02/04/23 History tablet (Vision tablet) calcium carbonate 200 mg calcium 200 mg PO BID PRN Heartburn 09/04/19 02/04/23 History (500 mg) chewable tablet (Tums) nitroglycerin 0.4 mg sublingual 0.4 mg sublingual Q5M PRN Chest 10/24/19 02/04/23 Rx tablet Pain #20 tabs flash glucose scanning reader #1 ea 07/16/20 02/01/23 History (FreeStyle Porfirio 2 Weed) flash glucose sensor (FreeStyle #1 ea 07/16/20 02/01/23 History Porfirio 2 Sensor kit) aspirin 81 mg tablet,delayed 81 mg PO .NOON 12/24/20 02/04/23 History release blood-glucose meter #1 ea 09/29/21 02/01/23 History flash glucose scanning reader 09/29/21 02/01/23 History (FreeStyle Porfirio 2 Weed) pen needle, diabetic 32 gauge x #400 ea 10/26/21 02/01/23 Rx 5/32" (BD Ultra-Fine Lainey Pen Needle) metoprolol succinate 100 mg 100 mg PO BID #180 tabs 05/16/22 02/04/23 Rx tablet,extended release 24 hr lisinopril 20 mg tablet 40 mg (2 x 20 mg) PO QAM #90 tabs 09/02/22 02/04/23 Rx ezetimibe 10 mg-simvastatin 80 mg 1 tab PO HS #90 tabs 12/19/22 02/04/23 Rx tablet (Vytorin) meclizine 25 mg tablet 25 mg PO Q6H PRN Dizziness #15 tabs 12/22/22 02/04/23 Rx bumetanide 1 mg tablet 1 mg PO Q OTHER DAY prn edema #180 01/18/23 02/04/23 Rx tabs insulin aspar prot-insulin aspart 0 unit subcut BID 02/04/23 02/04/23 History 100 unit/mL (70-30) subcutaneous pen (Novolog Mix 70-30FlexPen U-100) memantine 5 mg tablet 5 mg PO .NOON 02/04/23 02/04/23 History Patient History Medical History Hearing deficit left ear deafness Meniere's disease Sensorineural hearing loss (SNHL) of left ear with restricted hearing of right ear bilateral hearing aides CAD (coronary artery disease) CABG x2 (2004) Secondary hyperparathyroidism Hypertension Chronic kidney disease, stage III (moderate) Urinary tract infection hx. no problems recently. GERD (gastroesophageal reflux disease) Diabetes mellitus, type 2 IDDM Hyperlipidemia Sleep apnea CPAP Surgical History History of left knee replacement History of colonoscopy with polypectomy History of arthroscopy LEFT KNEE History of esophagogastroduodenoscopy (EGD) History of cataract surgery BILATERAL History of endoscopic sinus surgery History of tonsillectomy History of cardiac cath 2004 [place] [facility] [place] stents History of coronary artery bypass graft X2 (2004) [facility] Family History Mother Family history of diabetes mellitus Myocardial infarction Diabetes Cardiac disorder Hypertension Heart disease Father Myocardial infarction Cardiac disorder Alcohol abuse Brother Myocardial infarction Leukemia Alcohol abuse Stroke Melanoma Lymphoma Alzheimer disease Other No family history of adverse response to anesthesia Pure hypercholesterolemia Denies family history of Ovarian cancer Prostate cancer Breast cancer Colorectal cancer Social History Smoking Status: Former smoker Tobacco Type: Cigarettes Second Hand Exposure: No; Do You Dip or Chew Tobacco: No; Hx Alcohol Use: No Hx Substance Use: No Preferred Language: Yoruba Communication Ability: Effective Visual Impairment: No Limitations Hearing Ability: Use of Hearing Aid Linux Unix System Administrator Required: No Beliefs That Will Affect Care: None marital status: Current Living Situation: Spouse current occupational status: retired Feels Safe at Home: Yes Diet: regular caffeine: Yes Dental Care, Regularly: Yes Physical Activity Frequency: Does not Exercise Seatbelt Use: always Sunscreen Use: No Assistive Devices: None Review of Systems Review of Systems: -- Patient has not had any angina pector is. -- 10 point ROS completed and is negativ e with the exception of what is mentioned in the HPI. Physical Exam Physical Exam: Blood pressure 162/96. Pulse 72 and regular. GENERAL: Patient in no acute distress. HEENT: Head is atraumatic, normocephalic. EOM's intact. Facies symmetric. No perioral cyanosis. NECK: No JVD. JVP is not elevated. Carotid upstrokes are + 2 bilaterally without bruits. CHEST/LUNGS: Clear to auscultation throughout all lung [place]. No wheezes, rales, or crackles. CVS: S1 and S2 are regular without murmurs, gallops, or rubs. PMI is nonpalpable. No lifts, heaves, or thrills. No abdominal aortic or renal bruits. ABDOMINAL EXAM: Bowel sounds are present. No masses, organomegaly, or tenderness. EXTREMITIES: No clubbing or cyanosis. No edema. Intact radial pulses bilaterally. NEUROLOGIC EXAM: Patient is awake, alert, and interactive. Pleasant and cooperative. Speech is clear. Gait pattern was not assessed. Results & Data Vital Signs (Past 12 Hours) Vital Signs Temp Pulse Resp BP Pulse Ox Pulse Ox O2 Del Method 02/06/23 07:51 37.0 C 84 18 162/96 H 96 Room Air 02/06/23 02:43 37.2 C 81 17 140/99 97 Room Air 02/05/23 23:00 94 02/05/23 22:48 37.2 C 80 18 132/68 96 Room Air O2 Del Method 02/06/23 07:51 02/06/23 02:43 02/05/23 23:00 Room Air 02/05/23 22:48 Laboratory Results Laboratory Results - last 24 hr 02/05/23 02/05/23 02/05/23 16:58 17:48 20:21 WBC RBC Hgb Hct MCV MCH MCHC RDW Std Deviation RDW Coeff of Sudha Plt Count MPV Immature Gran % (Auto) Neut % (Auto) Lymph % (Auto) Mil[place] % (Auto) Eos % (Auto) Baso % (Auto) Neut # (Auto) Lymph # (Auto) [place] # (Auto) Eos # (Auto) Baso # (Auto) Immature Gran # (Auto) Sodium Potassium Chloride Carbon Dioxide Anion Gap BUN Creatinine Est Cr Clr Drug Dosing Est GFR ( Amer) Est GFR (Non-Af Amer) BUN/Creatinine Ratio Glucose POC Glucose 121 H 188 H Calcium Magnesium Troponin I High Sens 42.7 H 02/06/23 02/06/23 02/06/23 05:56 07:54 11:42 WBC 5.28 RBC 4.92 Hgb 15.2 Hct 45.3 MCV 92.1 MCH 30.9 MCHC 33.6 RDW Std Deviation 43.6 RDW Coeff of Sudha 12.9 Plt Count 142 MPV 10.2 Immature Gran % (Auto) 0.2 Neut % (Auto) 61.9 Lymph % (Auto) 18.2 Milam % (Auto) 18.6 Eos % (Auto) 0.9 Baso % (Auto) 0.2 Neut # (Auto) 3.27 Lymph # (Auto) 0.96 L Milam # (Auto) 0.98 H Eos # (Auto) 0.05 Baso # (Auto) 0.01 Immature Gran # (Auto) 0.01 Sodium 140 Potassium 4.3 Chloride 108 H Carbon Dioxide 25 Anion Gap 7 BUN 29 H Creatinine 1.80 H Est Cr Clr Drug Dosing 41.7 Est GFR ( Amer) 40.6 Est GFR (Non-Af Amer) 35.0 BUN/Creatinine Ratio 16.1 Glucose 157 H POC Glucose 149 H 207 H Calcium 9.0 Magnesium 2.0 Troponin I High Sens Diagnostic Findings CXR 02/04/23: Median sternotomy wires are seen with a fractured superior and third wire. Calcified aortic knob is seen. The lungs are clear. No evidence of pleural effusion or pneumothorax. IMPRESSION: No acute abnormalities and in particular no radiographic evidence of pneumonia. CT SCAN of the Head 02/04/23: -- No acute intracranial hemorrhage is seen. There is encephalomalacia of the right parietal lobe corresponding to previous intracranial hemorrhage. Chronic volume loss changes are seen. Encephalomalacia in the right lobe of the cerebellum is unchanged. -- Imaged portions of the paranasal sinuses and mastoid air cells are clear. The orbits appear normal. There are no acute fractures of the calvaria or scalp swelling. Medications Administered Medication List Aspirin (Aspirin 81 Mg Ectab) 81 mg PO DAILY@1200 BLAZE Stop: 03/07/23 11:59 Last Admin: 02/06/23 11:47 Dose: 81 mg Documented By: Admin: 02/05/23 13:29 Dose: 81 mg Documented By: RAMSEY Insulin Aspart (Insulin Aspart Per Unit Charge) 0 units SC [facility]; Protocol Stop: 03/06/23 18:59 Last Admin: 02/06/23 12:54 Dose: 6 units Documented By: ROSI Co-signed By: KING Admin: 02/06/23 09:08 Dose: 7 units Documented By: ROSI Co-signed By: KING Admin: 02/05/23 20:34 Dose: 3 units Documented By: DINORA Co-signed By: KIRBY Admin: 02/05/23 17:09 Dose: Not Given Documented By: Admin: 02/05/23 13:29 Dose: 5 units Documented By: RAMSEY Co-signed By: DONAL Admin: 02/05/23 08:53 Dose: 6 units Documented By: JAIME Co-signed By: GUERLINE Admin: 02/05/23 00:39 Dose: 3 units Documented By: (2) Co-signed By: CHELSIE Admin: 02/04/23 20:50 Dose: 12 units Documented By: DMH Co-signed By: QGV Insulin Glargine (Lantus Per Unit Charge) 20 units SC BID [facility]; Protocol Stop: 03/07/23 08:59 Last Admin: 02/06/23 09:08 Dose: 20 units Documented By: ROSI Co-signed By: KING Admin: 02/05/23 20:34 Dose: 20 units Documented By: DINORA Co-signed By: KIRBY Admin: 02/05/23 08:54 Dose: 20 units Documented By: JAIME Co-signed By: GUERLINE Lisinopril (Lisinopril 40 Mg Tab) 40 mg PO QAM [facility] Stop: 03/07/23 08:59 Last Admin: 02/06/23 08:56 Dose: 40 mg Documented By: Admin: 02/05/23 13:34 Dose: 40 mg Documented By: RAMSEY Memantine (Memantine Hcl 5 Mg Tab) 5 mg PO DAILY@1200 [facility] Stop: 03/07/23 11:59 Last Admin: 02/06/23 11:47 Dose: 5 mg Documented By: Admin: 02/05/23 15:11 Dose: 5 mg Documented By: MARCELA Metoprolol Succinate (Metoprolol Succ 50mg Ext Rel Tab) 100 mg PO BID [facility] Stop: 03/07/23 11:14 Last Admin: 02/06/23 10:25 Dose: 100 mg Documented By: Admin: 02/05/23 23:59 Dose: Not Given Documented By: Admin: 02/05/23 11:46 Dose: 100 mg Documented By: RAMSEY Discontinued Medications Acetaminophen (Acetaminophen 325 Mg Tab) 650 mg PO NOW STA Stop: 02/04/23 18:39 Last Admin: 02/04/23 18:46 Dose: 650 mg Documented By: JENARO Sodium Chloride (Nss) 500 mls @ 80 mls/hr IV .Q6H15M [facility] Stop: 03/06/23 14:29 Last Infusion: 02/05/23 14:22 Dose: Infused Documented By: Admin: 02/05/23 12:03 Dose: Not Given Documented By: Admin: 02/05/23 12:02 Dose: 80 mls/hr Documented By: Infusion: 02/05/23 07:19 Dose: Infused Documented By: Admin: 02/04/23 21:33 Dose: 80 mls/hr Documented By: Infusion: 02/04/23 18:12 Dose: Infused Documented By: Admin: 02/04/23 14:34 Dose: 80 mls/hr Documented By: JENARO Magnesium Sulfate/Dextrose (Magnesium Sulfate / D5w) 1 gm in 100 mls @ 100 mls/hr IV NOW STA Stop: 02/04/23 17:23 Last Infusion: 02/04/23 17:50 Dose: Infused Documented By: Admin: 02/04/23 16:46 Dose: 100 mls/hr Documented By: JENARO Lactated Ringer's (Lr) 1,000 mls @ 999 mls/hr IV .Q1H1M ONE Stop: 02/04/23 18:59 Last Infusion: 02/04/23 19:27 Dose: Infused Documented By: MartinGV Admin: 02/04/23 18:12 Dose: 999 mls/hr Documented By: JENARO Magnesium Sulfate/Dextrose (Magnesium Sulfate / D5w) 1 gm in 100 mls @ 100 mls/hr IV NOW STA Stop: 02/04/23 19:13 Last Infusion: 02/04/23 21:11 Dose: Infused Documented By: Admin: 02/04/23 18:28 Dose: 100 mls/hr Documented By: JENARO Sodium Chloride (Nss) 1,000 mls @ 80 mls/hr IV .[id number] BLAZE Stop: 03/07/23 14:44 Last Admin: 02/05/23 14:57 Dose: Not Given Documented By: Insulin Glargine (Lantus Per Unit Charge) 30 units SQ ONE ONE Stop: 02/04/23 19:16 Last Admin: 02/04/23 20:50 Dose: 30 units Documented By: CORY Co-signed By: QGV Labetalol HCl (Labetalol Hcl Iv 5 Mg/Ml 20ml) 10 mg IV NOW STA Stop: 02/04/23 14:20 Last Admin: 02/04/23 14:34 Dose: 10 mg Documented By: JENARO Co-signed By: ALBAROL Lisinopril (Lisinopril 20 Mg Tab) 40 mg PO NOW STA Stop: 02/04/23 15:54 Last Admin: 02/04/23 16:46 Dose: 40 mg Documented By: JENARO Lorazepam (Lorazepam 2 Mg/1 Ml Vial) 1 mg IV NOW STA Stop: 02/04/23 19:14 Last Admin: 02/04/23 19:27 Dose: 1 mg Documented By: QGV PG Care Time/CCT Total # of Minutes Spent Total Time Spent with Patient: Total time spent is greater than 50% in coordination of care (as documented) at patient's floor/unit and/or counseling patient:46 Coding [place] [address] INT INP/OBS CARE 2/55MIN Patient Type Established History Comprehensive Exam Comprehensive Medical Decision Making Moderate Complexity Diagnoses NSVT (nonsustained ventricular tachycardia) I47.29 Sinus pause I45.5 CAD (coronary artery disease) I25.10 History of coronary artery bypass graft Z95.1 Primary hypertension I10 Hypertension type: primary hypertension Mixed hyperlipidemia E78.2 Hyperlipidemia type: mixed hyperlipidemia Time Spent (min) 58 (5) Hypertension Hypertension type: primary hypertension Qualified Code(s): I10 - Essential (primary) hypertension (6) Hyperlipidemia Hyperlipidemia type: mixed hyperlipidemia Qualified Code(s): E78.2 - Mixed hyperlipidemia
[2023-02-06] MEDS: METOPROLOL SUCC 50MG EXT REL TAB PO SCH ×2 (10:25→20:35)
[2023-02-06] MEDS: MEMANTINE HCL 5 MG TAB PO SCH (11:47)
[2023-02-06] MEDS: ASPIRIN 81 MG ECTAB PO SCH (11:47)
--- NOTE | 2023-02-06 14:14 | Pharmacy Report ---
Pharmacy Glycemic Short Note 2 - Date of Service February 06, 2023 - Glycemic Short BSG Results (Last 24 hours): 02/05/23 02/05/23 02/06/23 16:58 20:21 05:56 Glucose 157 H POC Glucose 121 H 188 H 02/06/23 02/06/23 07:54 11:42 Glucose POC Glucose 149 H 207 H OUTPATIENT ANTIDIABETIC REGIMEN: * Novolog 70/30: 48 units SC with breakfast, 30 units SC with dinner * HbA1c: 9.6% on 02/05/23 ASSESSMENT: 02/06: * [place] received 54 units of insulin yesterday, 40 of which were basal. BSGs were: 524-248-648-188 mg/dL. * Fasting BSG was 149 mg/dL. Continue with current basal dosing. * No change in stressors today. 02/05: * 77 y/o M admitted for arrhythmia. Patient has history of diabetes managed on Novolog 70/30 insulin BID with meals at home. * Will utilize basal and bolus insulin for glycemic control while in-patient. * BSGs above 200 mg/dl on admission yesterday. Basal insulin 30 units (stress of 3) was given last night. * Fasting BSG trended down to 136 mg/dl today. Basal insulin 20 units BID ordered which is based on stress of 2. * Novolog parameters started last night using stress of 2. Continued the same today. PLAN FOR INPATIENT GLYCEMIC CONTROL: * Basal insulin * Lantus 20 units SC BID * Bolus insulin * NovoLog per scale ACHS or Q6hrs while NPO * Goal Range: Low 110 mg/dL - High 140 mg/dL * Correction Factor: 20 mg/dL/unit * Nutritional / Prandial insulin per carb ratio of 1 unit per 7 grams CHO consumed
--- NOTE | 2023-02-06 17:18 | Hospitalist Progress Note ---
Date of Service February 06, 2023 Assessment & Plan (1) Arrhythmia: Plan: -While in the ED and on tele the patient had an approximately 4 beat run of V- tach followed by a sinus pause 3.2 seconds after coughing, both were asymptomatic. Possible torsades also determined by Cardiology to be artifact -ECHO with preserved EF -appreciate Cardio recommendations-continue metoprolol and if recurs, can increase beta kari dose -high sen trop elevated at 26 and repeat 2 hours later 27, now 47 and later in the day down to 42-, patient denies any chest discomfort -Continue to monitor on telemetry (2) Confusion: Plan: Acute encephalopathy secondary to [id number] with worsening confusion with mild cough and is COVID-19 positive Now pretty much back to baseline as per after receiving IVFs -CT head negative -Supportive care (3) COVID-19: Plan: -Remains stable on RA -Chest Xray clear -Supportive measures for now, not a candidate for remdesivir given renal function. -No steroids indicated as he is not hypoxic -Incentive spirometry, flutter therapy, prn albuterol - prn antitussive (4) DM (diabetes mellitus), type 2 with complications: Plan: -Monitor BSG ACHS, goal is 110-160 -Normally on Novolog 70/30 48 units in the morning and 30 in the evening -Continue Lantus and NovoLog as per pharmacy -DMII/HH diet (5) History of intracranial hemorrhage: Plan: -CT negative for acute hemorrhage -Fall precautions ordered (6) Obstructive sleep apnea of adult: Plan: -No longer compliant with CPAP (7) Hypertension: Plan: -Blood pressures normal to mildly elevated -continue metoprolol -Hold Bumex for now with dehydration but can restart tomorrow every other day (8) Hyperlipidemia: Plan: -cont home statin/Zetia (9) History of coronary artery bypass graft: Plan: -Continue aspirin, statin, lisinopril, metoprolol Plan Disposition-continued stay but PT/OT recommended return home. Can likely dc to home tomorrow Admission and Anticipated Discharge Date Admission Date: February 04, 2023 Subjective Feeling well. No more cough, no SOB. Is eating and drinking. at bedside reports his mentation is pretty much back to baseline. Tele with NSR, rates 70-90s Physical Exam Constitutional: WD/WN, vitals as above Respiratory: normal respiratory effort, lungs clear to auscultation Cardiovascular: RRR, no murmur, no edema Gastrointestinal (Abdomen): normal bowel sounds, soft, nontender, no hepatosplenomegaly Neurologic: moves all extremities and awake; no focal motor deficits Psychiatric: Orientation: alert, oriented to person, oriented to place, oriented to time (month only but not year or date) and cooperative Results & Data Results & Data Vital Signs (Past 12 Hours) Vital Signs Temp Pulse Pulse Resp BP Pulse Ox O2 Del Method 02/06/23 15:16 81 02/06/23 11:45 36.8 C 72 18 150/81 H 99 Room Air 02/06/23 07:51 37.0 C 84 18 162/96 H 96 Room Air 02/06/23 07:15 83 Laboratory Results BMP, magnesium reviewed PG Care Time/CCT Total # of Minutes Spent Total Time Spent with Patient: Total time spent is greater than 50% in coordination of care (as documented) at patient's floor/unit and/or counseling patient: Coding Level of Care Code 33871 SUB INP/OBS CARE 2/35MIN Diagnoses Arrhythmia I49.9 Confusion R41.0 COVID-19 U07.1 DM (diabetes mellitus), type 2 with complications E11.8 History of intracranial hemorrhage Z86.79 Obstructive sleep apnea of adult G47.33 Primary hypertension I10 Hypertension type: primary hypertension Mixed hyperlipidemia E78.2 Hyperlipidemia type: mixed hyperlipidemia History of coronary artery bypass graft Z95.1 (7) Hypertension Hypertension type: primary hypertension Qualified Code(s): I10 - Essential (primary) hypertension (8) Hyperlipidemia Hyperlipidemia type: mixed hyperlipidemia Qualified Code(s): E78.2 - Mixed hyperlipidemia
[2023-02-06] MEDS ORDERED: SIMVASTATIN 80 MG TAB PO SCH (21:00)
[2023-02-06] MEDS ORDERED: EZETIMIBE 10 MG TAB PO SCH (21:00)
[2023-02-06] MEDS ORDERED: EZETIMIBE/SIMVASTATIN 10/80MG TAB PO SCH (21:00)
[2023-02-07 06:44] LABS: Basophils # (auto) 0.01 K/uL (0.00-0.20); Basophils % (auto) 0.2 %; Eosinophils # (auto) 0.07 K/uL (0.00-0.50); Eosinophils % (auto) 1.6 %; Hemoglobin 14.6 g/dl (14.0-18.0); Immature Granulocytes # (auto) 0.01 K/uL (0.01-0.20); Immature Granulocytes % (auto) 0.2 %; Lymphocytes # (auto) 1.44 K/uL (1.20-3.40); Lymphocytes % (auto) 32.7 %; Mean Corpuscular Hemoglobin 31.3 pg (25.0-34.0); Mean Corpuscular Hgb Conc 34.8 g/dL (32.0-36.0); Mean Corpuscular Volume 90.1 fL (80.0-100.0); Mean Platelet Volume 10.3 fL (9.4-12.4); Monocytes # (auto) 0.66 K/uL (0.11-0.59); Neutrophils # (auto) 2.22 K/uL (1.40-6.50); Neutrophils % (auto) 50.3 %; Platelet Count 145 K/uL (130-400); RDW Coefficient of Variation 12.6 % (11.5-14.5); RDW Standard Deviation 41.6 fL (36.4-46.3); Red Blood Count 4.66 M/uL (4.70-6.10); White Blood Count 4.41 K/ul (4.8-10.8)
[2023-02-07 07:09] LABS: BUN Creatinine Ratio 19.3 (10-20); Calcium 8.7 mg/dl (8.6-10.3); Creatinine Clr Calc Pharmacy 41.7 ml/min; Est GFR (African American) 40.3 ml/min; Est GFR (Non-African American) 34.8 ml/min; Magnesium 1.9 mg/dl (1.7-2.4); Potassium 3.8 mmol/L (3.5-5.1)
[2023-02-07] MEDS: lisinopril 40 MG TAB PO SCH (08:47)
[2023-02-07] MEDS: METOPROLOL SUCC 50MG EXT REL TAB PO SCH (08:47)
[2023-02-07] MEDS: INSULIN ASPART PER UNIT CHARGE SC SCH ×2 (08:48→12:40)
[2023-02-07] MEDS ORDERED: LANTUS PER UNIT CHARGE SC SCH (09:00)
[2023-02-07] MEDS ORDERED: BUMETANIDE 1 MG TAB PO SCH (09:00)
[2023-02-07] MEDS: ASPIRIN 81 MG ECTAB PO SCH (12:46)
[2023-02-07] MEDS: MEMANTINE HCL 5 MG TAB PO SCH (12:46)
--- NOTE | 2023-02-07 13:50 | Discharge Summary ---
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 He was noted to be hypertensive at 189/109 in the ED but otherwise stable. Labs were significant for a lymphocyte count of 0.85, glucose of 244, initial high sen tr op of 26, and UA yet to be collected. CT of the head/brain WO con and Chest xray were read as no acute processes. Prior to admission the patient was given 500 mL NSS, 10 mg IV labetalol, 40 mg PO lisinopril, and 1gm IV mag-sulfate. We were asked to admit the patient for further evaluation of acute mental status changes as the patient is currently not safe to return home as his is his main car egiver at this time. At the time of the exam the patient was sitting in bed in no acute distress with his sitting bedside, history was obtained mainly from the patient's due to his current mental state. She states that over the past 24 hours he has had progressive fatigue, increased confusion from baseline, and increased urinary frequency. 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 She denies any fevers from the patient over the past 24 hours, he denies recent chest pain, SOB, abd pain, nausea, vomiting, diarrhea, dysuria, LW swelling, and recent fall. His states that the patient has developed a non-productive cough over the past 24 hours. He did not take any of his am meds as per his . He is a full code and his is his POA Please refer to Dr. Bales's attestation for any change to the treatment plan Principal Dx & Hospital Course #1 = Principal Diagnosis (1) Arrhythmia: -While in the ED and on tele the patient had an approximately 4 beat run of V- tach followed by a sinus pause 3.2 seconds after coughing, both were asymptomatic. Possible torsades also determined by Cardiology to be artifact -ECHO with preserved EF -appreciate Cardio recommendations-continue metoprolol and if recurs, can increase beta kari dose -high sen trop elevated at 26 and repeat 2 hours later 27, now 47 and later in the day down to 42-, patient denies any chest discomfort (2) Confusion: Acute encephalopathy secondary to [id number] with worsening confusion with mild cough and is COVID-19 positive Now back to baseline as per after receiving IVFs -CT head negative -Supportive care (3) COVID-19: -Remains stable on RA -Chest Xray clear -Supportive measures for now, not a candidate for remdesivir given renal function. -No steroids indicated as he is not hypoxic -Incentive spirometry, flutter therapy, prn albuterol - prn antitussive (4) DM (diabetes mellitus), type 2 with complications: -Monitor BSG ACHS, goal is 110-160 -Normally on Novolog 70/30 48 units in the morning and 30 in the evening resume home insulin regimen (5) History of intracranial hemorrhage: -CT negative for acute hemorrhage (6) Obstructive sleep apnea of adult: -No longer compliant with CPAP (7) Hypertension: -Blood pressures normal -continue metoprolol -continue Bumex (8) Hyperlipidemia: -cont home statin/Zetia (9) History of coronary artery bypass graft: -Continue aspirin, statin, lisinopril, metoprolol Plan Disposition-dc to home. PT/OT recommended return home Discharge Exam Constitutional WD/WN, vitals as above Respiratory normal respiratory effort, lungs clear to auscultation Cardiovascular RRR, no murmur, no edema Gastrointestinal (Abdomen) normal bowel sounds, soft, nontender, no hepatosplenomegaly Neurologic moves all extremities and awake; no focal motor deficits Psychiatric Orientation: alert, oriented to person, oriented to place, oriented to time (month only but not year or date) and cooperative Updated Medication List Medication Instructions Recorded Confirmed Type vitamin A-vitamin C-vit E-min 1 tab PO QAM 10/31/18 02/04/23 History tablet (Vision tablet) calcium carbonate 200 mg calcium 200 mg PO BID PRN Heartburn 09/04/19 02/04/23 History (500 mg) chewable tablet (Tums) nitroglycerin 0.4 mg sublingual 0.4 mg sublingual Q5M PRN Chest 10/24/19 02/04/23 Rx tablet Pain #20 tabs flash glucose scanning reader #1 ea 07/16/20 02/01/23 History (FreeStyle Porfirio 2 [place]) flash glucose sensor (FreeStyle #1 ea 07/16/20 02/01/23 History Porfirio 2 Sensor kit) aspirin 81 mg tablet,delayed 81 mg PO .NOON 12/24/20 02/04/23 History release blood-glucose meter #1 ea 09/29/21 02/01/23 History flash glucose scanning reader 09/29/21 02/01/23 History (FreeStyle Porfirio 2 [place]) pen needle, diabetic 32 gauge x #400 ea 10/26/21 02/01/23 Rx 5/32" (BD Ultra-Fine Lainey Pen Needle) metoprolol succinate 100 mg 100 mg PO BID #180 tabs 05/16/22 02/04/23 Rx tablet,extended release 24 hr lisinopril 20 mg tablet 40 mg (2 x 20 mg) PO QAM #90 tabs 09/02/22 02/04/23 Rx ezetimibe 10 mg-simvastatin 80 mg 1 tab PO HS #90 tabs 12/19/22 02/04/23 Rx tablet (Vytorin) meclizine 25 mg tablet 25 mg PO Q6H PRN Dizziness #15 tabs 12/22/22 02/04/23 Rx bumetanide 1 mg tablet 1 mg PO Q OTHER DAY prn edema #180 01/18/23 02/04/23 Rx tabs insulin aspar prot-insulin aspart 0 unit subcut BID 02/04/23 02/04/23 History 100 unit/mL (70-30) subcutaneous pen (Novolog Mix 70-30FlexPen U-100) memantine 5 mg tablet 5 mg PO .NOON 02/04/23 02/04/23 History Hospital Stay Data Consultations 02/05/23 14:56 Consult Cardiology Routine Diagnostic Imagining Performed 02/04/23 14:19 CT head/brain wo con Stat ECHO Pending Results Patient Have Any Pending Studies at Discharge: No Discharge Instructions Given to Patient (Per Discharging Provider) You were admitted with some confusion from having COVID-19 that has now cleared up. You had a brief abnormal heart rhythm that is not concerning and you were seen by the Director Clinical Pharmacology for this. No changes to your medications were made. Total Time Total Time Spent Total Time Spent (In Minutes): 35 min Coding Level of Care Code 12895 INP/OBS DISCH >30 MIN Diagnoses Arrhythmia I49.9 Confusion R41.0 COVID-19 U07.1 DM (diabetes mellitus), type 2 with complications E11.8 History of intracranial hemorrhage Z86.79 Obstructive sleep apnea of adult G47.33 Primary hypertension I10 Hypertension type: primary hypertension Mixed hyperlipidemia E78.2 Hyperlipidemia type: mixed hyperlipidemia History of coronary artery bypass graft Z95.1
== END 2023-02-07 16:00 | disposition home or self-care (01) | DRG 308 ==
LOC: ED 13:40 → SUATTDRO 17:58 → EDINP 17:58 → 2E 19:03